=== PATIENT | female | born 1975 | race African-American/Black ===

== ENCOUNTER → 2016-09-28 | Outpatient (CLI) | payer OTHER ==
--- NOTE | 2016-09-28 14:37 | P.PN ---
Progress Note - Text Patient returns for followup for chronic back pain without radiation to legs. Patient underwent LESI x 3 in November 2015, which provided some relief for 2-3 weeks' interval apiece. Patient continues on [place] and Mobic medications for pain with some relief and has now recovered from her previous pneumonia. Patient denies adverse drug effects from medications. Today, pt denies new- onset weakness, bowel/bladder incontinence, or any other signs or symptoms of cauda equina syndrome. There are no signs of acute intoxication, and no indications of medication diversion or overuse. In addition to above, 13-point review of systems is also negative for chest pain , shortness of breath, changes in vision, changes in hearing, new onset weakness , abdominal pain, diarrhea, extreme fatigue, malaise, fever, skin changes, homicidal or suicidal ideation, or bowel or bladder incontinence. Vital Signs: Reviewed in EMR Gen: WDWN, AAOx3, NAD HEENT: NCAT, EOMI, hearing grossly normal Pulm: resp unlabored Abd: soft, NT, ND Neck: supple, trachea midline ROM in flexion lumbar spine: full ROM in extension lumbar spine: reduced Lumbar paravertebral tenderness: + Facet loading: ++ bilateral SI joint tenderness: + bilateral Darin's test: neg Neuro: CN II-XII grossly intact, muscle strength lower extremities PRESERVED Imaging: Reviewed in EMR Assessment: 1. lumbar spinal stenosis 2. lumbar spondylosis without myelopathy 3. sacroiliac joint dysfunction Plan: 1. Explanation: Opioid and psychological risk scores were reviewed. Diagnoses , prognoses, and multiple treatment options including but not limited to physical therapy, interventional therapies, adjuvant medical therapies, narcotic medication therapies, and surgery were discussed with the patient and all questions were answered to the patient's satisfaction. 2. Opioid agreement: Patient has previously signed narcotic agreement, and was orally counseled to not overuse, abuse, divert, or cell medications, and to take them as prescribed by only 1 healthcare provider. The patient was also counseled to store opioid medications in a safe and preferably locked location. Patient was also counseled against driving while using narcotic medications and also to not use alcohol or any illicit or recreational drugs. The patient verbalized understanding that lack of compliance with any of the above and likely result in failure to renew narcotic prescriptions, possible discharge from the clinic, and possible legal ramifications thereafter if indicated. 3. Counseling: The patient was counseled extensively on SMOKING CESSATION, BODY MASS INDEX, EXERCISE. Specifically, the patient was instructed regarding the importance of smoking cessation, obesity, and exercise in the context of both chronic pain and overall health. 4. Procedures: bilateral lumbar MBB 5. Consultations: None 6. Investigations: UDS reviewed, appropriate 7. Medications: [place] x 2 months and Mobic 8. Disposition: f/u for MBB as scheduled PQRS measures: 1-Patient's medications are documented in the chart. 2-Tobacco use is positive, counseling given 3-Patient has not had a pneumococcal vaccine. 4-Advanced care planning discussed, patient unable to give. 5-Opioid contract signed with the patient. 6-Pain positive, follow-up visit or procedure scheduled 7-Patient's blood pressure measured and documented, and patient will follow up with the primary care due to hypertension. 8-Patient's weight was measured, and body mass index ABOVE the normal limits, and counseling was done. Patient instructed to follow up with PCP. 9-Patient WAS NOT identified as an unhealthy alcohol user.
[2016-09-28 14:51] VITALS: BP 180/98; PULSE 69; RESP 18
== END | disposition home or self-care (01) ==
LOC: PNWHC3 14:22
PROVIDERS: ATTEND Anesthesiology
DX: M48.06 Spinal stenosis, lumbar region (principal); M47.816 Spondylosis without myelopathy or radiculopathy, lumbar region; M53.88 Other specified dorsopathies, sacral and sacrococcygeal region; Z79.899 Other long term (current) drug therapy; Z72.0 Tobacco use; I10 Essential (primary) hypertension
CPT/HCPCS: 99211

== ENCOUNTER 2016-11-05 13:16 | Day surgery (SDC) | payer OTHER ==
[2016-11-03 15:07] VITALS: BMI 46.3
[2016-11-05 13:38] VITALS: TEMP 97.8
[2016-11-05] MEDS: LACTATED RINGERS 1,000 ML IV SCH ×2 (13:41→14:12)
[2016-11-05] MEDS ORDERED: LIDOCAINE 1% 20 ML VIAL (10MG/ML) FOR IV START INTRADERMA ONE (13:42)
[2016-11-05] MEDS ORDERED: TRIAMCINOLONE ACETONIDE 40 MG/ML 1 ML VIAL ONE (14:12)
[2016-11-05] MEDS ORDERED: MIDAZOLAM 2 MG/2 ML VIAL ONE (14:12)
[2016-11-05] MEDS ORDERED: fentaNYL (PF) 50 MCG/ML 2 ML AMP ONE (14:12)
[2016-11-05] MEDS ORDERED: BUPIVACAINE (PF) 0.5% 30 ML VIAL ONE (14:12)
--- NOTE | 2016-11-05 14:39 | P.PCN ---
Date of Procedure: 11/05/16 Procedure(s) Performed: PREOPERATIVE DIAGNOSIS : 1- Lumbar spondylosis with Facet Arthropathy without myelopathy . 2- Lumber degenerative disc disease POSTOPERATIVE DIAGNOSIS: 1- Lumbar spondylosis with Facet Arthropathy without myelopathy . 2- Lumber degenerative disc disease PROCEDURE: Diagnostic bilateral L3 -4 , L4 -5 , and L5-S1 medial branch block under fluoroscopy ANESTHESIA: Local with 1% lidocaine 6 ml ; IV sedation with Versed 2 mg and Fentanyl 100 mcg. EBL: Minimal COMPLICATION: None. IV FLUIDS: 100 mL of normal saline. PROCEDURE INDICATION: Chronic low back pain secondary to Facet arthropathy unresponsive to conservative treatment. PROCEDURE DESCRIPTION: the patient was seen and identified in the preop holding area , risks and benefits and possible complications of the procedure and alternative were discussed with the patient, and the patient agreed to proceed with the procedure and signed the consent IV was started and vital signs monitored during the procedure and fluoroscopy was used to maximize the benefit and accuracy of the needle placement, and sedation was given to decrease patient anxiety, patient was taken to the procedure room and placed in prone position vital signs monitored in the back prepped with chlorhexidine X3 then under strict sterile technique using a right oblique fluoroscopy ,the junction of the transverse process and the superior articulating process of the right L3- 4 , L4- 5, and L5-S1 vertebra which corresponding to the fluoroscopy image of the eye of the Steve dog on the block side for the medial branches and subsequently , after local infiltration of skin and subcu tissuies with lidocaine 1% one mL at each level ,then 22- gauge Quincke-type needles , 3 needle was used , each one of them placed at the junction of the base of the transverse process and the superior articular process at the appropriate level, and the needle was advanced until the periosteum contacted, needle placement confirmed with AP oblique and lateral view and after appropriate needle placement confirmed, and after negative aspiration for heme and CSF and there was no paresthesia 1-1/2 mL of Marcaine 0.5% mixed with 40 mg Kenalog , then half mL injected at each level after negative aspiration the needle subsequently removed and the same procedure repeated for the left side at left side at L3-4, L4- 5 and L5-S1 levels. At the end of the procedure and the needles removed and a bandage applied after the skin was cleaned the cleaning solution patient taken to recovery room in stable condition and monitors in the recovery room for 20-30 minutes and discharged home in stable condition after discharge criteria met and patient will follow up with the pain clinic in 2-4 weeks
[2016-11-05 14:48] VITALS: RESP 16
--- NOTE | 2016-11-05 14:51 | FL ---
EXAMINATION TYPE: FL guided pain mgmt statistic DATE OF EXAM: 11/05/2016 2:43 PM CLINICAL HISTORY: Low back pain. TECHNIQUE: Fluoroscopy. COMPARISON: None. FINDINGS: Fluoroscopic guidance was provided during pain relief procedure performed by Dr. Alaniz . A total of 10 seconds of fluoroscopic time was utilized during the procedure and multiple spot marcos ges are acquired. Images acquired shows needle localization at several levels in the lower lumbar sp ine. IMPRESSION: As Above.
[2016-11-05 15:01] VITALS: BP 133/76; PULSE 62
[2016-11-05] MEDS ORDERED: IV FLUID CONTINUATION 1,000 ML IV ONE (15:03)
== END 2016-11-05 15:08 | disposition home or self-care (01) ==
LOC: ORPAIN 13:16
PROVIDERS: ATTEND Specialist
DX: G89.29 Other chronic pain (principal); M46.96 Unspecified inflammatory spondylopathy, lumbar region; M51.36 Other intervertebral disc degeneration, lumbar region; M47.816 Spondylosis without myelopathy or radiculopathy, lumbar region
CPT/HCPCS: 81025; 64493; 64494; 64495; 99152; J2250; J3301; J3010

== ENCOUNTER → 2016-11-24 | Outpatient (CLI) | payer OTHER ==
[2016-11-24 14:48] VITALS: BP 120/75; PULSE 58; RESP 18; TEMP 98
--- NOTE | 2016-11-24 14:59 | P.PN ---
Progress Note - Text Patient returns for followup for chronic back pain without radiation to legs. Patient underwent bilateral lumbar MBB, which provided > 70% relief for two weeks of back pain. Patient continues on [place] and Mobic medications for pain with some relief. Patient denies adverse drug effects from medications. Today , pt denies new-onset weakness, bowel/bladder incontinence, or any other signs or symptoms of cauda equina syndrome. There are no signs of acute intoxication, and no indications of medication diversion or overuse. In addition to above, 13-point review of systems is also negative for chest pain , shortness of breath, changes in vision, changes in hearing, new onset weakness , abdominal pain, diarrhea, extreme fatigue, malaise, fever, skin changes, homicidal or suicidal ideation, or bowel or bladder incontinence. Vital Signs: Reviewed in EMR Gen: WDWN, AAOx3, NAD HEENT: NCAT, EOMI, hearing grossly normal Pulm: resp unlabored Abd: soft, NT, ND Neck: supple, trachea midline ROM in flexion lumbar spine: full ROM in extension lumbar spine: reduced Lumbar paravertebral tenderness: + Facet loading: ++ bilateral, R > L SI joint tenderness: + bilateral Darin's test: + R side Neuro: CN II-XII grossly intact, muscle strength lower extremities PRESERVED Imaging: Reviewed in EMR Assessment: 1. lumbar spinal stenosis 2. lumbar spondylosis without myelopathy 3. sacroiliac joint dysfunction Plan: 1. Explanation: Opioid and psychological risk scores were reviewed. Diagnoses , prognoses, and multiple treatment options including but not limited to physical therapy, interventional therapies, adjuvant medical therapies, narcotic medication therapies, and surgery were discussed with the patient and all questions were answered to the patient's satisfaction. 2. Opioid agreement: Patient has previously signed narcotic agreement, and was orally counseled to not overuse, abuse, divert, or cell medications, and to take them as prescribed by only 1 healthcare provider. The patient was also counseled to store opioid medications in a safe and preferably locked location. Patient was also counseled against driving while using narcotic medications and also to not use alcohol or any illicit or recreational drugs. The patient verbalized understanding that lack of compliance with any of the above and likely result in failure to renew narcotic prescriptions, possible discharge from the clinic, and possible legal ramifications thereafter if indicated. 3. Counseling: The patient was counseled extensively on SMOKING CESSATION, BODY MASS INDEX, EXERCISE. Specifically, the patient was instructed regarding the importance of smoking cessation, obesity, and exercise in the context of both chronic pain and overall health. 4. Procedures: bilateral lumbar MBB #2 5. Consultations: None 6. Investigations: UDS reviewed, appropriate 7. Medications: [place] x 2 months and Mobic x 6 months 8. Disposition: f/u for MBB as scheduled; if relief, will proceed with lumbar RFA PQRS measures: 1-Patient's medications are documented in the chart. 2-Tobacco use is positive, counseling given 3-Patient has not had a pneumococcal vaccine. 4-Advanced care planning discussed, patient unable to give. 5-Opioid contract signed with the patient. 6-Pain positive, follow-up visit or procedure scheduled 7-Patient's blood pressure measured and documented, and patient will follow up with the primary care due to hypertension. 8-Patient's weight was measured, and body mass index ABOVE the normal limits, and counseling was done. Patient instructed to follow up with PCP. 9-Patient WAS NOT identified as an unhealthy alcohol user.
== END | disposition home or self-care (01) ==
LOC: PNWHC3 14:38
PROVIDERS: ATTEND Anesthesiology
DX: M48.06 Spinal stenosis, lumbar region (principal); M47.816 Spondylosis without myelopathy or radiculopathy, lumbar region; M53.3 Sacrococcygeal disorders, not elsewhere classified; Z79.1 Long term (current) use of non-steroidal anti-inflammatories (NSAID); Z79.891 Long term (current) use of opiate analgesic
CPT/HCPCS: 99211

== ENCOUNTER 2016-12-10 10:49 | Day surgery (SDC) | payer OTHER ==
[2016-12-09 09:51] VITALS: BMI 47.6
[~2016-12-10 10:49] MED LIST: LACTATED RINGERS 1,000 ML IV SCH
[2016-12-10 12:10] VITALS: TEMP 98.1
[2016-12-10] MEDS ORDERED: LIDOCAINE 1% 20 ML VIAL (10MG/ML) FOR IV START INTRADERMA ONE (12:21)
[2016-12-10] MEDS ORDERED: MIDAZOLAM 2 MG/2 ML VIAL ONE (13:14)
[2016-12-10] MEDS ORDERED: BUPIVACAINE (PF) 0.5% 30 ML VIAL ONE (13:14)
[2016-12-10] MEDS ORDERED: TRIAMCINOLONE ACETONIDE 40 MG/ML 1 ML VIAL ONE (13:14)
[2016-12-10] MEDS ORDERED: fentaNYL (PF) 50 MCG/ML 2 ML AMP ONE (13:14)
--- NOTE | 2016-12-10 13:42 | P.PCN ---
Date of Procedure: 12/10/16 Procedure(s) Performed: PREOPERATIVE DIAGNOSIS : 1- Lumbar spondylosis with Facet Arthropathy without myelopathy . 2- Lumber degenerative disc disease POSTOPERATIVE DIAGNOSIS: 1- Lumbar spondylosis with Facet Arthropathy without myelopathy . 2- Lumber degenerative disc disease PROCEDURE: Diagnostic bilateral L3 -4 , L4 -5 , and L5-S1 medial branch block under fluoroscopy ANESTHESIA: Local with 1% lidocaine 6 ml ; IV sedation with Versed 2 mg and Fentanyl 100 mcg. EBL: Minimal COMPLICATION: None. IV FLUIDS: 100 mL of normal saline. PROCEDURE INDICATION: Chronic low back pain secondary to Facet arthropathy unresponsive to conservative treatment. PROCEDURE DESCRIPTION: the patient was seen and identified in the preop holding area , risks and benefits and possible complications of the procedure and alternative were discussed with the patient, and the patient agreed to proceed with the procedure and signed the consent IV was started and vital signs monitored during the procedure and fluoroscopy was used to maximize the benefit and accuracy of the needle placement, and sedation was given to decrease patient anxiety, patient was taken to the procedure room and placed in prone position vital signs monitored in the back prepped with chlorhexidine X3 then under strict sterile technique using a right oblique fluoroscopy ,the junction of the transverse process and the superior articulating process of the right L3- 4 , L4- 5, and L5-S1 vertebra which corresponding to the fluoroscopy image of the eye of the Steve dog on the block side for the medial branches and subsequently , after local infiltration of skin and subcu tissuies with lidocaine 1% one mL at each level ,then 22- gauge Quincke-type needles , 3 needle was used , each one of them placed at the junction of the base of the transverse process and the superior articular process at the appropriate level, and the needle was advanced until the periosteum contacted, needle placement confirmed with AP oblique and lateral view and after appropriate needle placement confirmed, and after negative aspiration for heme and CSF and there was no paresthesia 1-1/2 mL of Marcaine 0.5% mixed with 20 mg Kenalog , then half mL injected at each level after negative aspiration the needle subsequently removed and the same procedure repeated for the left side at left side at L3-4, L4- 5 and L5-S1 levels. At the end of the procedure and the needles removed and a bandage applied after the skin was cleaned the cleaning solution patient taken to recovery room in stable condition and monitors in the recovery room for 20-30 minutes and discharged home in stable condition after discharge criteria met and patient will follow up with the pain clinic in 2-4 weeks note = next Procedure we should use 5 inch needles
[2016-12-10] MEDS ORDERED: IV FLUID CONTINUATION 1,000 ML IV ONE ×2 (13:47)
[2016-12-10 14:06] VITALS: BP 129/83; PULSE 59; RESP 20
--- NOTE | 2016-12-10 14:58 | FL ---
Fluoroscopy HISTORY: Pain 15 seconds fluoroscopy time supplied to the referring clinician. 4 intraoperative C-arm images do cument the procedure. See dictated report from anesthesia.
== END 2016-12-10 15:13 | disposition home or self-care (01) ==
LOC: ORPAIN 10:49
PROVIDERS: ATTEND Specialist
DX: G89.29 Other chronic pain (principal); M54.5 Low back pain; M46.96 Unspecified inflammatory spondylopathy, lumbar region; M47.816 Spondylosis without myelopathy or radiculopathy, lumbar region; M51.36 Other intervertebral disc degeneration, lumbar region
CPT/HCPCS: 81025; 64493; 64494; 64495; 99152; J2250; J3301; J3010

== ENCOUNTER 2017-01-12 09:14 | Day surgery (SDC) | payer OTHER ==
[2017-01-07 15:26] VITALS: BMI 45.3
[2017-01-12 09:34] VITALS: RESP 16; TEMP 98
[2017-01-12] MEDS ORDERED: LIDOCAINE 1% 20 ML VIAL (10MG/ML) FOR IV START INTRADERMA ONE (09:38)
[2017-01-12] MEDS ORDERED: fentaNYL (PF) 50 MCG/ML 2 ML AMP ONE (09:43)
[2017-01-12] MEDS ORDERED: DEXAMETHASONE SOD PHOS (MDV) 100 MG/10 ML VIAL ONE (09:43)
[2017-01-12] MEDS ORDERED: MIDAZOLAM 2 MG/2 ML VIAL ONE (09:43)
[2017-01-12] MEDS ORDERED: IV FLUID CONTINUATION 1,000 ML IV ONE (10:15)
--- NOTE | 2017-01-12 10:21 | P.PCN ---
Date of Procedure: 01/12/17 Preoperative Diagnosis: Postoperative Diagnosis: Procedure(s) Performed: Implants: Surgeon: Tj Clemons Pathology: none sent Condition: stable Disposition: PACU Indications for Procedure: Operative Findings: Description of Procedure: PREOPERATIVE DIAGNOSIS: Lumbar spondylosis without myelopathy and facet arthropathy POSTOPERATIVE DIAGNOSIS: Lumbar spondylosis without myelopathy and facet arthropathy PROCEDURES: Left Radiofrequency thermocoagulation, L3, L4, and L5 medial branch , with fluoroscopic guidance. ANESTHESIA: 1% lidocaine plain; Conscious sedation with versed/fentanyl EBL: Minimal PROCEDURE INDICATION: The patient with low back pain secondary to lumbar arthropathy who had more than 50% relief of pain with previous diagnostic lumbar medial branch block with bupivacaine. Patient presents for RFA today and has been off Plavix for seven (7) days. PROCEDURE DESCRIPTION / TECHNIQUE: The patient was seen and identified in the preoperative area. Risks, benefits, complications, and alternatives were discussed with the patient (including but not limited to incomplete pain relief , bleeding, infection, nerve damage, and allergies to medications), the patient agreed to proceed with the procedure and signed the consent after all questions were answered. Patient was taken to the OR and time out was completed to verify proper patient , position, laterality of pain, and allergies. Pt was placed in the prone position. IV was started. Vital signs remained stable throughout the procedure. A pillow was placed under the patients chest to decrease lordosis. The lumbosacral area was prepped and draped in the usual sterile fashion. Vital signs were closely monitored during the procedure. Conscious sedation was used during the procedure to decrease patients anxiety. Using AP and then oblique fluoroscopy, the eye of the Steve dog corresponding to the connection between the superior and transverse articular processes of left L4, L5 and top of the sacrum were identified, marked, and localized with 1% lidocaine. Subsequently, a 20 gauge, 150-mm radiofrequency cannula with a 10-mm active tip was advanced guided by fluoroscopy to each of the eyes of the Steve dog at left L3, L4, and L5 medial branches. Each site then underwent sensory testing at 50 Hz and 0 to 1 volt and motor testing at 2 Hz and 0 to 3 volt with local stimulation, but no radicular symptoms down the legs. Thereafter the left L3, L4, and L5 medial branch sites underwent radiofrequency thermocoagulation at 80 degrees Celsius for 90 seconds after injecting 0.5 ml of PF lidocaine 1%. After thermocoagulation, 1 ml of the block solution containing Decadron 10 mg and 2 mL of preservative-free normal saline was injected at the left L3, L4, and L5 medial branch levels after negative aspiration of CSF and blood and with no paresthesias. Cannulas were retracted while injecting lidocaine 1% until the needles were removed. At the end of the procedure, the skin was cleansed and bandages were applied. COMPLICATIONS: No acute complications. DISPOSITION / PLANS: The patient was placed in a supine position and transferred to the recovery area in a stable condition for observation and was discharged from the recovery room after meeting discharge criteria. Home discharge instructions given to the patient by the staff. The patient was reexamined prior to discharge. The patient will schedule a right lumbar RFA in 4 -6 weeks.
[2017-01-12 10:52] VITALS: BP 139/84; PULSE 61
--- NOTE | 2017-01-12 11:14 | FL ---
EXAMINATION TYPE: FL guided pain mgmt statistic DATE OF EXAM: 01/12/2017 10:11 AM FLUOROSCOPY Fluoroscopy time of 20 seconds was used during left lumbar radiofrequency ablation. 2 image/s docume nt/s the procedure.
== END 2017-01-12 11:04 | disposition home or self-care (01) ==
LOC: ORPAIN 09:14
PROVIDERS: ATTEND Anesthesiology
DX: G89.29 Other chronic pain (principal); M54.5 Low back pain; M47.816 Spondylosis without myelopathy or radiculopathy, lumbar region; M46.96 Unspecified inflammatory spondylopathy, lumbar region; J45.909 Unspecified asthma, uncomplicated; Z79.1 Long term (current) use of non-steroidal anti-inflammatories (NSAID); Z79.891 Long term (current) use of opiate analgesic; Z79.51 Long term (current) use of inhaled steroids; Z79.899 Other long term (current) drug therapy
CPT/HCPCS: 81025; 64636 ×2; 64635; 99152; J2250; J3010; J1100

== ENCOUNTER 2017-03-01 07:20 | Day surgery (SDC) | payer OTHER ==
[2017-03-01] MEDS ORDERED: LACTATED RINGERS 1,000 ML IV SCH (08:15)
[2017-03-01] MEDS ORDERED: LIDOCAINE 1% 20 ML VIAL (10MG/ML) FOR IV START INTRADERMA ONE (08:54)
[2017-03-01] MEDS ORDERED: TRIAMCINOLONE ACETONIDE 40 MG/ML 1 ML VIAL ONE (08:55)
[2017-03-01] MEDS ORDERED: fentaNYL (PF) 50 MCG/ML 2 ML AMP ONE (08:55)
[2017-03-01] MEDS ORDERED: MIDAZOLAM 2 MG/2 ML VIAL ONE (08:55)
[2017-03-01 09:00] VITALS: TEMP 98
--- NOTE | 2017-03-01 09:26 | P.PCN ---
Date of Procedure: 03/01/17 Preoperative Diagnosis: Postoperative Diagnosis: Procedure(s) Performed: Implants: Surgeon: Tj Clemons Pathology: none sent Condition: stable Disposition: PACU Indications for Procedure: Operative Findings: Description of Procedure: PREOPERATIVE DIAGNOSIS: Lumbar spondylosis without myelopathy and facet arthropathy POSTOPERATIVE DIAGNOSIS: Lumbar spondylosis without myelopathy and facet arthropathy PROCEDURES: Right Radiofrequency thermocoagulation, L3, L4, and L5 medial branch , with fluoroscopic guidance. ANESTHESIA: 1% lidocaine plain; Conscious sedation with versed/fentanyl EBL: Minimal PROCEDURE INDICATION: The patient with low back pain secondary to lumbar arthropathy who had more than 50% relief of pain with previous diagnostic lumbar medial branch block with bupivacaine. Patient presents for right RFA today after left lumbar RFA last time. Patient denies use of any blood thinners. PROCEDURE DESCRIPTION / TECHNIQUE: The patient was seen and identified in the preoperative area. Risks, benefits, complications, and alternatives were discussed with the patient (including but not limited to incomplete pain relief , bleeding, infection, nerve damage, and allergies to medications), the patient agreed to proceed with the procedure and signed the consent after all questions were answered. Patient was taken to the OR and time out was completed to verify proper patient , position, laterality of pain, and allergies. Pt was placed in the prone position. IV was started. Vital signs remained stable throughout the procedure. A pillow was placed under the patients abdomen to decrease lordosis. The lumbosacral area was prepped and draped in the usual sterile fashion. Vital signs were closely monitored during the procedure. Conscious sedation was used during the procedure to decrease patients anxiety. Using AP and then oblique fluoroscopy, the eye of the Steve dog corresponding to the connection between the superior and transverse articular processes of right L4, L5 and top of the sacrum were identified, marked, and localized with 1% lidocaine. Subsequently, a 20 gauge, 150-mm radiofrequency cannula with a 10-mm active tip was advanced guided by fluoroscopy to each of the eyes of the Steve dog at right L3, L4, and L5 medial branches. Each site then underwent sensory testing at 50 Hz and 0 to 1 volt and motor testing at 2 Hz and 0 to 3 volt with local stimulation, but no radicular symptoms down the legs. Thereafter the right L3, L4, and L5 medial branch sites underwent radiofrequency thermocoagulation at 80 degrees Celsius for 90 seconds after injecting 0.5 ml of PF lidocaine 1%. After thermocoagulation, 1 ml of the block solution containing Kenalog 40 mg and 2 mL of preservative-free normal saline was injected at the right L3, L4, and L5 medial branch levels after negative aspiration of CSF and blood and with no paresthesias. Cannulas were retracted while injecting lidocaine 1% until the needles were removed. At the end of the procedure, the skin was cleansed and bandages were applied. COMPLICATIONS: No acute complications. DISPOSITION / PLANS: The patient was placed in a supine position and transferred to the recovery area in a stable condition for observation and was discharged from the recovery room after meeting discharge criteria. Home discharge instructions given to the patient by the staff. The patient was reexamined prior to discharge. The patient will schedule a follow-up in the clinic in 4-6 weeks.
[2017-03-01] MEDS ORDERED: IV FLUID CONTINUATION 1,000 ML IV ONE (09:27)
[2017-03-01 09:30] VITALS: RESP 18
--- NOTE | 2017-03-01 09:30 | FL ---
EXAMINATION TYPE: FL guided pain mgmt statistic DATE OF EXAM: 03/01/2017 CLINICAL HISTORY: Low back and sacral pain. TECHNIQUE: Fluoroscopy. COMPARISON: None. FINDINGS: Fluoroscopic guidance was provided during pain relief procedure performed by Dr. Clemons . A total of 18 seconds of fluoroscopic time was utilized during the procedure and two spot images are acquired. Images acquired shows needle localization at several levels in the lower lumbar spine. IMPRESSION: As Above.
[2017-03-01 09:41] VITALS: BP 111/78; PULSE 61
--- NOTE | 2017-03-03 07:02 | CDI ---
Documentation Clarification OP Dear Dr. Clemons, Please provide clarification regarding the facet levels treated. The CPT codes for these accounts are coded by the facet levels not the number of nerves treated. Please specify each facet joint level treated (L3-4, L4-5, etc) PLEASE RESPOND TO THIS QUERY BY DICTATING AN ADDENDUM TO YOUR PROCEDURE NOTE. Thank you for your assistance. [employer] [email or web address] CONSULTANT If you have any questions, please contact Kaiako Kohanga Reo, Carolin Santos at [facility]
== END 2017-03-01 10:05 | disposition home or self-care (01) ==
LOC: ORPAIN 07:20
PROVIDERS: ATTEND Anesthesiology
DX: G89.29 Other chronic pain (principal); M47.816 Spondylosis without myelopathy or radiculopathy, lumbar region; M46.96 Unspecified inflammatory spondylopathy, lumbar region; J44.9 Chronic obstructive pulmonary disease, unspecified; Z79.1 Long term (current) use of non-steroidal anti-inflammatories (NSAID); Z79.891 Long term (current) use of opiate analgesic; Z79.51 Long term (current) use of inhaled steroids; Z79.899 Other long term (current) drug therapy
CPT/HCPCS: 99152; 99153; 81025; 64635; 64636 ×2; J2250; J3301; J3010

== ENCOUNTER → 2017-03-29 | Outpatient (CLI) | payer OTHER ==
[2017-03-29 11:57] VITALS: BP 122/78; PULSE 62; RESP 16; TEMP 97.6
--- NOTE | 2017-03-29 12:08 | P.PN ---
Progress Note - Text Patient returns for followup for chronic back pain without radiation to legs. Patient underwent bilateral lumbar RFA, which has provided good relief in interval since procedures. Patient continues on [place] and Mobic medications for pain with some relief. Patient denies adverse drug effects from medications. Today, pt denies new-onset weakness, bowel/bladder incontinence, or any other signs or symptoms of cauda equina syndrome. There are no signs of acute intoxication, and no indications of medication diversion or overuse. In addition to above, 13-point review of systems is also negative for chest pain , shortness of breath, changes in vision, changes in hearing, new onset weakness , abdominal pain, diarrhea, extreme fatigue, malaise, fever, skin changes, homicidal or suicidal ideation, or bowel or bladder incontinence. Vital Signs: Reviewed in EMR Gen: WDWN, AAOx3, NAD HEENT: NCAT, EOMI, hearing grossly normal Pulm: resp unlabored Abd: soft, NT, ND Neck: supple, trachea midline ROM in flexion lumbar spine: full ROM in extension lumbar spine: reduced Lumbar paravertebral tenderness: + Facet loading: + bilateral, improved since November SI joint tenderness: + bilateral Darin's test: + R side Neuro: CN II-XII grossly intact, muscle strength lower extremities PRESERVED Imaging: Reviewed in EMR Assessment: 1. lumbar spinal stenosis 2. lumbar spondylosis without myelopathy 3. sacroiliac joint dysfunction Plan: 1. Explanation: Opioid and psychological risk scores were reviewed. Diagnoses , prognoses, and multiple treatment options including but not limited to physical therapy, interventional therapies, adjuvant medical therapies, narcotic medication therapies, and surgery were discussed with the patient and all questions were answered to the patient's satisfaction. 2. Opioid agreement: Patient has previously signed narcotic agreement, and was orally counseled to not overuse, abuse, divert, or cell medications, and to take them as prescribed by only 1 healthcare provider. The patient was also counseled to store opioid medications in a safe and preferably locked location. Patient was also counseled against driving while using narcotic medications and also to not use alcohol or any illicit or recreational drugs. The patient verbalized understanding that lack of compliance with any of the above and likely result in failure to renew narcotic prescriptions, possible discharge from the clinic, and possible legal ramifications thereafter if indicated. 3. Counseling: The patient was counseled extensively on SMOKING CESSATION, BODY MASS INDEX, EXERCISE. Specifically, the patient was instructed regarding the importance of smoking cessation, obesity, and exercise in the context of both chronic pain and overall health. 4. Procedures: none for now 5. Consultations: None 6. Investigations: UDS reviewed, appropriate 7. Medications: Patient has refills on Mobic and [place] script already given for March; will plan to reduce [place] to 10/325 #90 for April and thereafter 8. Disposition: f/u for re-eval in 8 weeks PQRS measures: 1-Patient's medications are documented in the chart. 2-Tobacco use is positive, counseling given 3-Patient has not had a pneumococcal vaccine. 4-Advanced care planning discussed, patient unable to give. 5-Opioid contract signed with the patient. 6-Pain positive, follow-up visit or procedure scheduled 7-Patient's blood pressure measured and documented, and WNL. 8-Patient's weight was measured, and body mass index ABOVE the normal limits, and counseling was done. Patient instructed to follow up with PCP. 9-Patient WAS NOT identified as an unhealthy alcohol user.
== END | disposition home or self-care (01) ==
LOC: PNWHC3 11:06
PROVIDERS: ATTEND Anesthesiology
DX: M48.06 Spinal stenosis, lumbar region (principal); M47.816 Spondylosis without myelopathy or radiculopathy, lumbar region; M53.3 Sacrococcygeal disorders, not elsewhere classified
CPT/HCPCS: 99211

== ENCOUNTER → 2017-05-24 | Outpatient (CLI) | payer OTHER ==
[2017-05-24 12:17] VITALS: BP 158/74; PULSE 69; RESP 18
--- NOTE | 2017-05-24 12:25 | P.PN ---
Progress Note - Text Patient returns for followup for chronic back pain without radiation to legs. Patient underwent bilateral lumbar RFA in December and February, which has provided good relief in interval since procedures, but left sided back pain is starting to return since procedure in December. Patient continues on [place] and Mobic medications for pain with some relief. Patient denies adverse drug effects from medications. Today, pt denies new-onset weakness, bowel/bladder incontinence, or any other signs or symptoms of cauda equina syndrome. There are no signs of acute intoxication, and no indications of medication diversion or overuse. In addition to above, 13-point review of systems is also negative for chest pain , shortness of breath, changes in vision, changes in hearing, new onset weakness , abdominal pain, diarrhea, extreme fatigue, malaise, fever, skin changes, homicidal or suicidal ideation, or bowel or bladder incontinence. Vital Signs: Reviewed in EMR Gen: WDWN, AAOx3, NAD HEENT: NCAT, EOMI, hearing grossly normal Pulm: resp unlabored Abd: soft, NT, ND Neck: supple, trachea midline ROM in flexion lumbar spine: slightly reduced ROM in extension lumbar spine: reduced Lumbar paravertebral tenderness: + Facet loading: + L > R SI joint tenderness: + bilateral Darin's test: + R side > L side Neuro: CN II-XII grossly intact, muscle strength lower extremities PRESERVED Imaging: Reviewed in EMR Assessment: 1. lumbar spinal stenosis 2. lumbar spondylosis without myelopathy 3. sacroiliac joint dysfunction Plan: 1. Explanation: Opioid and psychological risk scores were reviewed. Diagnoses , prognoses, and multiple treatment options including but not limited to physical therapy, interventional therapies, adjuvant medical therapies, narcotic medication therapies, and surgery were discussed with the patient and all questions were answered to the patient's satisfaction. 2. Opioid agreement: Patient has previously signed narcotic agreement, and was orally counseled to not overuse, abuse, divert, or cell medications, and to take them as prescribed by only 1 healthcare provider. The patient was also counseled to store opioid medications in a safe and preferably locked location. Patient was also counseled against driving while using narcotic medications and also to not use alcohol or any illicit or recreational drugs. The patient verbalized understanding that lack of compliance with any of the above and likely result in failure to renew narcotic prescriptions, possible discharge from the clinic, and possible legal ramifications thereafter if indicated. 3. Counseling: The patient was counseled extensively on SMOKING CESSATION, BODY MASS INDEX, EXERCISE. Specifically, the patient was instructed regarding the importance of smoking cessation, obesity, and exercise in the context of both chronic pain and overall health. 4. Procedures: none for now 5. Consultations: None 6. Investigations: UDS today 7. Medications: [place] 10/325 #90 with one refill 8. Disposition: f/u for procedure as scheduled PQRS measures: 1-Patient's medications are documented in the chart. 2-Tobacco use is positive, counseling given 3-Patient has not had a pneumococcal vaccine. 4-Advanced care planning discussed, patient unable to give. 5-Opioid contract signed with the patient. 6-Pain positive, follow-up visit or procedure scheduled 7-Patient's blood pressure measured and documented, and WNL. 8-Patient's weight was measured, and body mass index ABOVE the normal limits, and counseling was done. Patient instructed to follow up with PCP. 9-Patient WAS NOT identified as an unhealthy alcohol user.
== END ==
LOC: PNWHC3 11:56
PROVIDERS: ATTEND Anesthesiology
DX: M48.061 Spinal stenosis, lumbar region without neurogenic claudication (principal); M47.816 Spondylosis without myelopathy or radiculopathy, lumbar region; M53.3 Sacrococcygeal disorders, not elsewhere classified; Z79.891 Long term (current) use of opiate analgesic; Z79.899 Other long term (current) drug therapy
CPT/HCPCS: 80307; G0480 ×2; G0463; 80356; 80364; 99211

== ENCOUNTER → 2017-08-10 | Outpatient (CLI) | payer OTHER ==
[2017-08-10 12:27] VITALS: BP 121/74; PULSE 65; RESP 18
--- NOTE | 2017-08-10 12:52 | P.PN ---
Progress Note - Text Progress Note Date: 08/10/17 This is a 39-year-old morbidly obese lady with history of axial lower back pain due to lumbar spondylosis without myelopathy. Patient spent has been well-controlled with a combination of interventional pain procedures and oral medications including [place] 10 mg 3 times a day and Mobic 7.5 mg once a day. Patient denies any side effects to these medications. She does not show any signs of oversedation and she does not show any signs of abnormal behavior at this time. She denies any bowel or bladder dysfunction also she denies any weakness in the lower lower extremities or any paresthesia. I'll give her prescription for [place] and Motrin for 2 months and we'll see her then. PQRS measures: 1-Patient's medications are documented in the chart. 2-patient uses tobacco, counseling given 3-Patient has not had a pneumococcal vaccine. 4-Advanced care planning discussed, patient unable to give 5-Opioid contract signed with the patient. 6-Pain positive, follow-up visit or procedure scheduled 7-Patient's blood pressure measured and documented within normal limits. 8-Patient's weight was measured, and body mass index ABOVE the normal limits, and counseling was done. Patient instructed to follow up with PCP. 9-Patient WAS NOT identified as an unhealthy alcohol user.
== END ==
LOC: PNWHC3 11:58
PROVIDERS: ATTEND Anesthesiology
DX: E66.01 Morbid (severe) obesity due to excess calories (principal); Z79.899 Other long term (current) drug therapy
CPT/HCPCS: 99211

== ENCOUNTER 2017-09-29 08:25 | Day surgery (SDC) | payer OTHER ==
[2017-08-20 11:40] VITALS: BMI 45.7
[2017-09-29 09:02] VITALS: RESP 16; TEMP 97.8
[2017-09-29] MEDS: LACTATED RINGERS 1,000 ML IV SCH ×2 (09:06→09:49)
[2017-09-29] MEDS ORDERED: LIDOCAINE 1% 20 ML VIAL (10MG/ML) FOR IV START INTRADERMA ONE (09:06)
--- NOTE | 2017-09-29 10:29 | P.PCN ---
Date of Procedure: 09/29/17 Procedure(s) Performed: PREOPERATIVE DIAGNOSIS: 1-Lumbar Spondylosis with Facet Arthropathy without myelopathy. POSTOPERATIVE DIAGNOSIS: 1- Lumbar Spondylosis with Facet Arthropathy without myelopathy. PROCEDURES : Right Radiofrequency thermocoagulation, L3-L4, L4-L5, and L5-S1 medial branch, with fluoroscopic guidance ANESTHESIA: Moderate sedation with intravenous versed 2 mg and fentaneyl 100 mcg and local infiltration with lidocaine 1% 6 ml EBL: Minimal PROCEDURE INDICATION: The patient with low back pain secondary to lumbar facet arthropathy who had more than 50% relief of her pain with previous diagnostic lumbar medial branch block with bupivacaine. PROCEDURE DESCRIPTION / TECHNIQUE: The patient was seen and identified in the preoperative area. Risks, benefits, complications, including but not limited to risk of infection ,bleeding , allergic reactions to the medications and no complete pain releife , and alternatives were discussed with the patient, the patient agreed to proceed with the procedure and signed the consent. IV was started. Vital signs remained stable throughout the procedure. Patient was taken to the OR and time out was completed. The patient was placed in the prone position on the procedure table. The lumber area was prepped and draped in the usual sterile fashion. . Vital signs were closely monitored during the procedure .IV sedation was used during the procedure to decrease patients anxiety. Using AP and then oblique fluoroscopy, the ``eye of the Steve dog corresponding to the connection between the superior and transverse articular processes of right L3, L4, and L5 were identified, marked, and localized with 1 % lidocaine. Subsequently, a [id number] radiofrequency cannula with a 10- mm active tip was advanced guided by fluoroscopy to each of the ``eyes of the Steve dog at right L3, L4, and L5. Each site then underwent sensory testing at 50 Hz and 0 to 1 volt and motor testing at 2.5 Hz and 0 to 3 volt with local stimulation, but no radicular symptoms down the legs. Thereafter the right L3-4, L4-5, and L5-S1 sites underwent radiofrequency thermocoagulation at 80 degrees celsius for 90 seconds after injecting 0.5 ml of PF lidocaine 1%. then After the thermocoagulation done , 1 ml of the block solution containing Kenalog 40 mg and 3 ml of marain 0.5% was injected at the right L3- 4 , L4-5 , and L5-S1, levels after negative aspiration of CSF and blood and with no paresthesias. Cannulas were retracted while injecting lidocaine 1% until the needle is out. . At the end of the procedure, the skin was cleansed and bandages were applied. COMPLICATIONS: No acute complications. DISPOSITION / PLANS: The patient was placed in a supine position and transferred to the recovery area in a stable condition for observation and was discharged from the recovery room after meeting discharge criteria. Home discharge instructions given to the patient by the staff. The patient was reexamined prior to discharge. The patient will schedule a follow up in the clinic in 2-4 weeks.
[2017-09-29] MEDS ORDERED: IV FLUID CONTINUATION 1,000 ML IV ONE (10:37)
--- NOTE | 2017-09-29 10:41 | FL ---
EXAMINATION TYPE: FL guided pain mgmt statistic DATE OF EXAM: 09/29/2017 CLINICAL HISTORY: Low back pain. TECHNIQUE: Fluoroscopy. COMPARISON: None. FINDINGS: Fluoroscopic guidance was provided during pain relief procedure performed by Dr. Alaniz . A total of 24 seconds of fluoroscopic time was utilized during the procedure and 3 spot images are acquired. Images acquired shows needle localization at several levels off the midline in the lower lumbar spine. IMPRESSION: As Above.
[2017-09-29 10:51] VITALS: BP 115/72; PULSE 55
== END 2017-09-29 11:11 | disposition home or self-care (01) ==
LOC: ORPAIN 08:25
PROVIDERS: ATTEND Specialist
DX: M47.816 Spondylosis without myelopathy or radiculopathy, lumbar region (principal); J45.909 Unspecified asthma, uncomplicated
CPT/HCPCS: 81025; 64635; 64636 ×2; J2250; J3301; J3010; 99152; 99153

== ENCOUNTER → 2017-10-27 | Outpatient (CLI) | payer OTHER ==
[2017-10-27 12:15] VITALS: BP 136/81; PULSE 97; RESP 18
--- NOTE | 2017-10-27 12:20 | P.PN ---
Subjective Progress Note Date: 10/27/17 This is follow-up visit for this patient with a history of severe and chronic low back pain secondary to lumbar degenerative disc diseases , lumbar spondylosis with facet arthropathy, we have done radiofrequency ablation of the medial branch lumbar area L3 4 /L4 5/L5-S1, and that helped the pain significantly Patients currently on [place] 10/325 every 8 hours, Mobic 7.5 mg daily Patient denies any side effects of the medication, denies excessive drowsiness or sleepiness, denies suicidal ideation, and reports that the current pain medication is helping To control the pain ,and improve activity of daily living Patient denies any motor or sensory deficit , patient denies any fever or night sweats, denies any change in the bowel movements or urination Physical Examinations : 1-Constitutiona : Cooperative , not in acute distress . 2-HEENT : nech ; supple , no Lymphadenopathy , no Thyromegaly , normal thyroid size . eyes : no ptosis , no icterus, no photophobia . ENT : normal of hearing , normal oropharynx , no Thrush . 3- Respiratory : Chest clear to auscultations Bilaterally , no wheezing , no Rhonchi . 4- Cardiovascular : regular rate and rhythem , S1 , S2 , no S3 , no S4. 5- Gastrointestinal : abdomen soft no tenderness , bowel sounds positive all four quadrents , no organomegally . 6- Genitourinary : Defferred . 7- neurologic : Cranial nerve II to XII intact , no focal neurological deffecit . 8-psychatric : alert , oriented X 3 , appropriate affect , intact judgment and insight . 9-Lymphatic : no Lymphadenopathy . 10- musculoskeltal : exams of the Lumber spine = motor strength lower extremities ,thigh and legs .5 Assessment and plan = Chronic low back pain secondary to lumbar degenerative disc disease , lumbar spondylosis with facet arthropathy without myelopathy , chronic and current use of high-risk medication (Opioids). The patient was counseled about risk of opioid use, psychological risk associated with opioids and was orally counseled to not overuse , divert,or sell dictations to take medications as prescribed only , and to restore medication in safe location , and the patient counseled against driving while using narcotic medications, and also not to use alcohol or any illicit recreational drugs, the patient's verbalized understanding that the lack of compliance will result in failure to renew narcotic prescription and possible discharge from the clinic - diagnoses, prognosis, and treatment options including but not limited to physical therapy, surgical interventions, interventional therapies , and medication management including narcotics and adjuvant medication were discussed with the patient and all the questions answered A prescription refill for [place] 10/325 every 8 hours dispense 90 with 1 refill, Mobic 7.5 milligrams daily dispense 30 with one refill Objective - Vital Signs Vital signs: Vital Signs Temp Pulse 97 10/27/17 12:07 Resp 18 10/27/17 12:07 BP 136/81 10/27/17 12:07 Pulse Ox 97 10/27/17 12:07 Intake & Output 10/26/17 10/27/17 10/27/17 18:59 06:59 18:59 Weight 113.398 kg
== END | disposition home or self-care (01) ==
LOC: PNWHC3 11:56
PROVIDERS: ATTEND Specialist
DX: G89.29 Other chronic pain (principal); M51.36 Other intervertebral disc degeneration, lumbar region; M47.816 Spondylosis without myelopathy or radiculopathy, lumbar region; M46.86 Other specified inflammatory spondylopathies, lumbar region; Z79.891 Long term (current) use of opiate analgesic; Z79.1 Long term (current) use of non-steroidal anti-inflammatories (NSAID)
CPT/HCPCS: 99211

== ENCOUNTER → 2017-12-22 | Outpatient (CLI) | payer OTHER ==
[2017-12-22 12:10] VITALS: BP 158/102; PULSE 58; RESP 18; TEMP 98.2
--- NOTE | 2017-12-22 12:34 | P.PN ---
Progress Note - Text Progress Note Date: 12/22/17 This is follow-up visit for this patient with a history of severe and chronic low back pain secondary to lumbar degenerative disc diseases , lumbar spondylosis with facet arthropathy, we have done interventional pain management injection,, 1-radio frequency ablation Patient denies any side effects of the medication, denies excessive drowsiness or sleepiness, denies suicidal ideation, and reports that the current pain medication is helping To control the pain and improve activity of daily living. He reports that she does lock her medication up in a lock box. He says that the combination of radio frequency ablations as well as opiate medications provide her significant relief of her pain and allow her to function. Patient denies any motor or sensory deficit , patient denies any fever or night sweats, denies any change in the bowel movements or urination Physical Examinations : 1-Constitutional : Cooperative , not in acute distress . 2-HEENT : nech ; supple , no Lymphadenopathy , no Thyromegaly , normal thyroid size . eyes : no ptosis , no icterus, no photophobia . ENT : normal of hearing , normal oropharynx , no Thrush . 3- Respiratory : Chest clear to auscultations Bilaterally , no wheezing , no Rhonchi . 4- Cardiovascular : regular rate and rhythem , S1 , S2 , no S3 , no S4. 5- Gastrointestinal : abdomen soft no tenderness , bowel sounds positive all four quadrents , no organomegally . 6- Genitourinary : Defferred . 7- neurologic : Cranial nerve II to XII intact , no focal neurological deffecit . 8-psychatric : alert , oriented X 3 , appropriate affect , intact judgment and insight . 9-Lymphatic : no Lymphadenopathy . 10- musculoskeletal : exams of the cervical spine = motor strength normal bilateral upper extremities facet loading test cervical area positive. exams of the Lumber spine = motor strength lower extremities ,thigh and legs .5/5 deep tendon reflexes : normal Knee Jerk , normal ankle Jerk . lumbar facet Loading Test : positive bilaterally strait leg raising test - negative Fabers test- negative bilaterally Range of motion: Range of motion in flexion of the lumbar spine 30 degrees Range of motion range of motion of extension of the lumbar spine 10 Assessment and plan = Chronic low back pain secondary to lumbar degenerative disc disease , lumbar spondylosis with facet arthropathy without myelopathy , chronic and current use of high-risk medication (Opioids). The patient was counseled about risk of opioid use, psychological risk associated with opioids and was orally counseled to not overuse , divert,or sell dictations to take medications as prescribed only , and to restore medication in safe location , and the patient counseled against driving while using narcotic medications, and also not to use alcohol or any illicit recreational drugs, the patient's verbalized understanding that the lack of compliance will result in failure to renew narcotic prescription and possible discharge from the clinic - diagnoses, prognosis, and treatment options including but not limited to physical therapy, surgical interventions, interventional therapies , and medication management including narcotics and adjuvant medication were discussed with the patient and all the questions answered Plan: 1. Follow-up in 2 months for medication management 2. We will schedule the patient for left lumbar radiofrequency ablation at the L4, L5 and sacral ala locations.
== END | disposition home or self-care (01) ==
LOC: PNWHC3 11:53
PROVIDERS: ATTEND Pain Medicine Pain Medicine
DX: G89.29 Other chronic pain (principal); M54.5 Low back pain; M51.36 Other intervertebral disc degeneration, lumbar region; M47.816 Spondylosis without myelopathy or radiculopathy, lumbar region; M46.86 Other specified inflammatory spondylopathies, lumbar region; F11.20 Opioid dependence, uncomplicated
CPT/HCPCS: 99211

== ENCOUNTER 2018-01-20 08:52 | Day surgery (SDC) | payer OTHER ==
[2018-01-19 08:32] VITALS: BMI 45.1
[2018-01-20 09:31] VITALS: RESP 16; TEMP 98.1
[2018-01-20] MEDS ORDERED: LIDOCAINE 1% 20 ML VIAL (10MG/ML) FOR IV START INTRADERMA ONE (09:32)
--- NOTE | 2018-01-20 10:12 | P.PCN ---
Date of Procedure: 01/20/18 Surgeon: Tyrell Adame Description of Procedure: Procedure(s) Performed: PREOPERATIVE DIAGNOSIS: 1. Lumbar Spondylosis with Facet Arthropathy without myelopathy. 2-. Lumber degenerative disc disease POSTOPERATIVE DIAGNOSIS: 1. Lumbar Spondylosis with Facet Arthropathy without myelopathy. 2-. Lumber degenerative disc disease PROCEDURES: Left Radiofrequency thermocoagulation, L4,L5, Sacral Ala medial branch, with fluoroscopic guidance SURGEON: Tyrell Adame MD. ANESTHESIA: Moderate sedation with intravenous versed 2 mg and fentanyl 100 mcg and local infiltration with lidocaine 1% 4 ml EBL: Minimal PROCEDURE INDICATION: The patient with low back pain secondary to lumbar facet arthropathy who had more than 50% relief of pain with previous diagnostic lumbar medial branch block with bupivacaine. PROCEDURE DESCRIPTION / TECHNIQUE: The patient was seen and identified in the preoperative area. Risks, benefits, complications, including but not limited to risk of infection ,bleeding , allergic reactions to the medications and no complete pain releife , and alternatives were discussed with the patient, the patient agreed to proceed with the procedure and signed the consent. IV was started. The operative site was marked. Patient was taken to the OR and time out was completed. The patient was placed in the prone position on the procedure table. The lumber area was prepped and draped in the usual sterile fashion. . Vital signs were closely monitored during the procedure .IV sedation was used during the procedure to decrease patients anxiety. Using AP and then oblique fluoroscopy, the ``eye of the Steve dog corresponding to the connection between the superior and transverse articular processes of the above-mentioned levels were identified, marked, and localized with 1% lidocaine. Subsequently, a 18 -yk radiofrequency cannula with a 10-mm active tip was advanced guided by fluoroscopy to each of the ``eyes of the Steve dog at each site then underwent sensory testing at 50 Hz and 0 to 1 volt and motor testing at 2.5 Hz and 0 to 3 volt with local stimulation, but no radicular symptoms down the legs. Then the sites underwent radiofrequency thermocoagulation at 80 degrees celsius for 90 seconds after injecting 0.5 ml of PF lidocaine 1%. then After the thermocoagulation done , 1 ml of the block solution containing depomedrol 40 mg and 4 ml of maraine 0.5 % was injected at each levels after negative aspiration of CSF and blood and with no paresthesias. Cannulas were retracted while injecting lidocaine 1% until the needle is out.. At the end of the procedure, the skin was cleansed and bandages were applied. COMPLICATIONS: No acute complications. DISPOSITION / PLANS: The patient was placed in a supine position and transferred to the recovery area in a stable condition for observation and was discharged from the recovery room after meeting discharge criteria. Home discharge instructions given to the patient by the staff. The patient was reexamined prior to discharge. She can follow up in the pain clinic on an as- needed basis. She will follow-up for medication management in less than 2 months..
[2018-01-20] MEDS ORDERED: IV FLUID CONTINUATION 1,000 ML IV ONE (10:43)
--- NOTE | 2018-01-20 11:10 | FL ---
Fluoroscopy INDICATION: Pain FINDINGS: Fluoroscopy time: 10 seconds. Images obtained: 2. IMPRESSIONS: 1. Documentation of fluoroscopy.
[2018-01-20 11:19] VITALS: BP 128/82; PULSE 52
== END 2018-01-20 11:29 | disposition home or self-care (01) ==
LOC: ORPAIN 08:52
PROVIDERS: ATTEND Pain Medicine Pain Medicine
DX: M47.816 Spondylosis without myelopathy or radiculopathy, lumbar region (principal); M51.36 Other intervertebral disc degeneration, lumbar region; J45.998 Other asthma
CPT/HCPCS: 64635; 64636; 81025; 99152

== ENCOUNTER → 2018-02-16 | Outpatient (CLI) | payer OTHER ==
[2018-02-16 13:31] VITALS: BP 166/82; PULSE 62; RESP 16; TEMP 98.9
--- NOTE | 2018-02-16 14:09 | P.PAINPG ---
Subjective Progress Note Date: 02/16/18 This is follow-up visit for this patient with a history of severe and chronic low back pain secondary to lumbar degenerative disc diseases , lumbar spondylosis with facet arthropathy, We have done interventional pain procedures at the frequency ablation of the medial branch lumbar area, which helped her pain significantly Patients currently on [place] 10/325 every 6 hours when necessary Patient denies any side effects of the medication, denies excessive drowsiness or sleepiness, denies suicidal ideation, and reports that the current pain medication is helping to control the pain and improve activity of daily living Patient denies any motor or sensory deficit , patient denies any fever or night sweats, denies any change in the bowel movements or urination Physical Examinations : 1-Constitutional : Cooperative , not in acute distress . 2-HEENT : nech ; supple , no Lymphadenopathy , no Thyromegaly , normal thyroid size . eyes : no ptosis , no icterus, no photophobia . ENT : normal of hearing , normal oropharynx , no Thrush . 3- Respiratory : Chest clear to auscultations Bilaterally , no wheezing , no Rhonchi . 4- Cardiovascular : regular rate and rhythem , S1 , S2 , no S3 , no S4. 5- Gastrointestinal : abdomen soft no tenderness , bowel sounds positive all four quadrents , no organomegally . 6- Genitourinary : Defferred . 7- neurologic: Cranial nerve II to XII intact , no focal neurological deffecit . 8- Psychatric: alert , oriented X 3 , appropriate affect , intact judgment and insight . 9- Lymphatic : no Lymphadenopathy . 10- Musculoskeltal : exams of the cervical spine = motor strength normal bilateral upper extremities facet loading test cervical area positive. exams of the Lumber spine =motor strength lower extremities ,thigh and legs .5/5 Assessment and plan = Chronic low back pain secondary to lumbar degenerative disc disease , lumbar spondylosis with facet arthropathy without myelopathy She gets more than 50% increase in her low back pain after the radiofrequency ablation of the medial branch lumbar area chronic and current use of high-risk medication (Opioids). The patient was counseled about risk of opioid use, psychological risk associated with opioids and was orally counseled to not overuse , divert,or sell dictations to take medications as prescribed only , and to restore medication in safe location , the patient counseled against driving while using narcotic medications , and also not to use alcohol or any illicit recreational drugs, patient's verbalized understanding that the lack of compliance will result in failure to renew narcotic prescription and possible discharge from the clinic - diagnoses, prognosis, and treatment options including but not limited to physical therapy, surgical interventions, interventional therapies , and medication management including narcotics and adjuvant medication were discussed with the patient and all the questions answered Prescription refill for [place] 10/325- q 8 hours dispense 90 with 1 refill she will follow with the pain clinic in 2 months Objective - Vital Signs Vital signs: Vital Signs Temp 98.9 F 02/16/18 13:29 Pulse 62 02/16/18 13:29 Resp 16 02/16/18 13:29 BP 166/82 02/16/18 13:29 Pulse Ox Intake & Output 02/15/18 02/16/18 02/16/18 18:59 06:59 18:59 Weight 111.13 kg PQRS Measure Charge Sheet Measure #130: Documentation of Current Meds in Medical Chart: Patient's medications documented in chart Measure #226: Tobacco Use: Screen & Cessation Intervention: Pt screened for tobacco use AND intervention given Measure #111: Pneumonia Vaccination: Pneumococcal vaccine NOT administered or previously given Measure #412: Opioid Treatment Agreement: Documented signed opioid trtmnt agreemnt min once during opioid trtmnt Measure #408: Opioid Therapy Follow-up Evaluation: Patient had f/u eval minimum every 3 months during opioid therapy Measure #317: Preventitive Care & Scrn High Bld Press & F/U: Pre-hypertensive or hypertensive BP documented, pt will f/u with PCP Measure #128: Body Mass Index (BMI) Screening & Follow-up: BMI documented ABOVE normal parameters - f/u documented Measure #131: Pain Assessment & Follow-up: Pain positive & plan documented, Follow-up scheduled Measure #431: Unhealthy Alcohol Use Preventative Care & Scrn: Patient not identified as an unhealthy alcohol user PQRS Narrative: Smoking Status Current every day smoker Do You Want the Pneumonia No Vaccine AT THIS TIME? Narcotic Agreement Date Signed 12/23/15 Blood Pressure 166/82 Pain Intensity [Lower Back] 5 Scale Used Numeric (1 - 10) Hx Alcohol Use (MH) No Home Medications: Ambulatory Orders Albuterol Inhaler [Ventolin Hfa Inhaler] 1 - 2 puff INHALATION Q6HR PRN Beclomethasone Dipropionate [Qvar 40 mcg] 2 applicate INHALATION DAILY PRN 09/28 Esomeprazole Magnesium [NexIUM] 40 mg PO AC-SUPPER 11/03/16 Loratadine [Claritin] 10 mg PO DAILY 11/03/16 Montelukast Sodium [Singulair] 10 mg PO HS 11/03/16 Propranolol [Inderal] 60 mg PO BID 11/03/16 HYDROcodone/APAP 10-325MG [[place] 10-325] 1 tab PO Q8HR PRN #90 tab 10/27/17 Meloxicam [Mobic] 7.5 mg PO DAILY PRN #30 tablet 10/27/17 Controlled Substance Measures - Controlled Substance Measures Is patient prescribed a controlled substance at discharge?: Yes When asked, does pt state using other controlled substances?: Yes If prescribed controlled substance>3 days was MAPS reviewed?: Yes If Rx opioid, was Start Talking consent form obtained?: Yes If opioid is for acute pain is fill amount 7 days or less?: No Was information provided regarding opioid addiction?: Yes
== END | disposition home or self-care (01) ==
LOC: PNWHC3 12:48
PROVIDERS: ATTEND Specialist
DX: G89.29 Other chronic pain (principal); M54.5 Low back pain; M51.36 Other intervertebral disc degeneration, lumbar region; M47.816 Spondylosis without myelopathy or radiculopathy, lumbar region; M46.86 Other specified inflammatory spondylopathies, lumbar region; F17.200 Nicotine dependence, unspecified, uncomplicated; Z79.891 Long term (current) use of opiate analgesic; Z79.899 Other long term (current) drug therapy; Z79.51 Long term (current) use of inhaled steroids
CPT/HCPCS: G0480; G0463; 80356; 99211

== ENCOUNTER → 2018-04-13 | Outpatient (CLI) | payer OTHER ==
[2018-04-13 12:35] VITALS: BP 164/91; PULSE 56; RESP 16
--- NOTE | 2018-04-13 12:48 | P.PN ---
Progress Note - Text Progress Note Date: 04/13/18 Patient returns for followup for chronic back pain without radiation to legs. Patient underwent bilateral lumbar RFA in September and December, which has provided good relief in interval since procedures. Patient states that she would like to repeat the radiofrequency ablation on the right side. She had relief greater than 60% with the previous one done in September. She still has good relief from the left side having been done in December. Patient continues on [place] and Mobic medications for pain with some relief. Patient denies adverse drug effects from medications. Today, pt denies new-onset weakness, bowel/bladder incontinence, or any other signs or symptoms of cauda equina syndrome. There are no signs of acute intoxication, and no indications of medication diversion or overuse. In addition to above, 13-point review of systems is also negative for chest pain , shortness of breath, changes in vision, changes in hearing, new onset weakness , abdominal pain, diarrhea, extreme fatigue, malaise, fever, skin changes, homicidal or suicidal ideation, or bowel or bladder incontinence. Vital Signs: Reviewed in EMR Gen: WDWN, AAOx3, NAD HEENT: NCAT, EOMI, hearing grossly normal Pulm: resp unlabored Abd: soft, NT, ND Neck: supple, trachea midline ROM in flexion lumbar spine: slightly reduced ROM in extension lumbar spine: reduced Lumbar paravertebral tenderness: + Facet loading: +R>>L SI joint tenderness: + bilateral Darin's test: + R side > L side Neuro: CN II-XII grossly intact, muscle strength lower extremities PRESERVED Imaging: Reviewed in EMR Assessment: 1. lumbar spinal stenosis 2. lumbar spondylosis without myelopathy 3. sacroiliac joint dysfunction Plan: 1. Explanation: Opioid and psychological risk scores were reviewed. Diagnoses , prognoses, and multiple treatment options including but not limited to physical therapy, interventional therapies, adjuvant medical therapies, narcotic medication therapies, and surgery were discussed with the patient and all questions were answered to the patient's satisfaction. 2. Opioid agreement: Patient has previously signed narcotic agreement, and was orally counseled to not overuse, abuse, divert, or cell medications, and to take them as prescribed by only 1 healthcare provider. The patient was also counseled to store opioid medications in a safe and preferably locked location. Patient was also counseled against driving while using narcotic medications and also to not use alcohol or any illicit or recreational drugs. The patient verbalized understanding that lack of compliance with any of the above and likely result in failure to renew narcotic prescriptions, possible discharge from the clinic, and possible legal ramifications thereafter if indicated. 3. Counseling: The patient was counseled extensively on SMOKING CESSATION, BODY MASS INDEX, EXERCISE. Specifically, the patient was instructed regarding the importance of smoking cessation, obesity, and exercise in the context of both chronic pain and overall health. 4. Procedures: Right lumbar radiofrequency ablation L3-L4, L4-L5, L5-S1 5. Consultations: None 6. Investigations: UDS today 7. Medications: Buch[place] 10/325 #90 with one refill as well as Mobic 7.5 mg with 4 refills 8. Disposition: f/u for procedure as scheduled PQRS measures: 1-Patient's medications are documented in the chart. 2-Tobacco use is positive, counseling given 3-Patient has not had a pneumococcal vaccine. 4-Advanced care planning discussed, patient unable to give. 5-Opioid contract signed with the patient. 6-Pain positive, follow-up visit or procedure scheduled 7-Patient's blood pressure measured and documented, and WNL. 8-Patient's weight was measured, and body mass index ABOVE the normal limits, and counseling was done. Patient instructed to follow up with PCP. 9-Patient WAS NOT identified as an unhealthy alcohol user.
== END | disposition home or self-care (01) ==
LOC: PNWHC3 12:08
PROVIDERS: ATTEND Anesthesiology
DX: M48.061 Spinal stenosis, lumbar region without neurogenic claudication (principal); M47.816 Spondylosis without myelopathy or radiculopathy, lumbar region; M46.1 Sacroiliitis, not elsewhere classified; Z79.891 Long term (current) use of opiate analgesic; Z72.0 Tobacco use
CPT/HCPCS: 99211

== ENCOUNTER 2018-05-18 09:15 | Day surgery (SDC) | payer OTHER ==
[2018-04-27 14:30] VITALS: BMI 45.7
[2018-05-18] MEDS ORDERED: LIDOCAINE 1% 20 ML VIAL (10MG/ML) FOR IV START INTRADERMA ONE (09:37)
[2018-05-18 09:43] VITALS: RESP 18; TEMP 97.3
--- NOTE | 2018-05-18 10:27 | P.PCN ---
Date of Procedure: 05/18/18 Procedure(s) Performed: PREOPERATIVE DIAGNOSIS: 1-Lumbar Spondylosis with Facet Arthropathy without myelopathy. POSTOPERATIVE DIAGNOSIS: 1- Lumbar Spondylosis with Facet Arthropathy without myelopathy. PROCEDURES : Right Radiofrequency thermocoagulation, L3-L4, L4-L5, and L5-S1 medial branch, with fluoroscopic guidance ANESTHESIA: Moderate sedation with intravenous versed 2 mg, and fentaneyl 100 mcg, and local infiltration with Ropivacaine 0.5 % . EBL: Minimal PROCEDURE INDICATION: The patient with low back pain secondary to lumbar facet arthropathy who had more than 50% relief of her pain with previous diagnostic lumbar medial branch block with bupivacaine. PROCEDURE DESCRIPTION / TECHNIQUE: The patient was seen and identified in the preoperative area. Risks, benefits, complications, including but not limited to risk of infection ,bleeding , allergic reactions to the medications and no complete pain releife , and alternatives were discussed with the patient, the patient agreed to proceed with the procedure and signed the consent. IV was started. Vital signs remained stable throughout the procedure. Patient was taken to the OR and time out was completed. The patient was placed in the prone position on the procedure table. The lumber area was prepped and draped in the usual sterile fashion. . Vital signs were closely monitored during the procedure .IV sedation was used during the procedure to decrease patients anxiety. Using AP and then oblique fluoroscopy, the ``eye of the Steve dog corresponding to the connection between the superior and transverse articular processes of right L3, L4, and L5 were identified, marked, and localized with 1% lidocaine. Subsequently, a 18 [id number] radiofrequency cannula with a 10- mm active tip was advanced guided by fluoroscopy to each of the ``eyes of the Steve dog at right L3, L4, and L5. Each site then underwent sensory testing at 50 Hz and 0 to 1 volt and motor testing at 2.5 Hz and 0 to 3 volt with local stimulation, but no radicular symptoms down the legs. Thereafter the right L3-4, L4-5, and L5-S1 sites underwent radiofrequency thermocoagulation at 80 degrees celsius for 90 seconds after injecting 0.5 ml of PF Ropivacaine 1ml then After the thermocoagulation done , 1 ml of the block solution containing Kenalog 40 mg and 3 ml of Ropivacaine 0.5% was injected at the right L3-4 , L4-5 , and L5-S1, levels after negative aspiration of CSF and blood and with no paresthesias. Cannulas were retracted while injecting lidocaine 1% until the needle is out. At the end of the procedure, the skin was cleansed and bandages were applied. COMPLICATIONS: No acute complications. DISPOSITION / PLANS: The patient was placed in a supine position and transferred to the recovery area in a stable condition for observation and was discharged from the recovery room after meeting discharge criteria. Home discharge instructions given to the patient by the staff. The patient was reexamined prior to discharge. The patient will schedule a follow up in the clinic in 2-4 weeks.
[2018-05-18] MEDS ORDERED: IV FLUID CONTINUATION 1,000 ML IV ONE (10:39)
--- NOTE | 2018-05-18 10:53 | FL ---
EXAMINATION TYPE: FL guided pain mgmt statistic DATE OF EXAM: 05/18/2018 FLUOROSCOPY Fluoroscopy time of 13 seconds was used during right-sided radiofrequency facet block. 2 image/s doc ument/s the procedure.
[2018-05-18 10:59] VITALS: BP 130/78; PULSE 78
== END 2018-05-18 11:21 | disposition home or self-care (01) ==
LOC: ORPAIN 09:15
PROVIDERS: ATTEND Specialist
DX: M47.816 Spondylosis without myelopathy or radiculopathy, lumbar region (principal)
CPT/HCPCS: 64635; 64636 ×2; J2250; J3301; J3010; 99152

== ENCOUNTER → 2018-06-08 | Outpatient (CLI) | payer OTHER ==
[2018-06-08 12:52] VITALS: BP 151/85; PULSE 56; RESP 18; TEMP 98.3
--- NOTE | 2018-06-08 13:34 | P.PAINPG ---
Subjective Progress Note Date: 06/08/18 This is follow-up visit for this patient with a history of severe and chronic low back pain secondary to lumbar degenerative disc diseases , lumbar spondylosis with facet arthropathy, we have done radiofrequency ablation of the medial branch lumbar area L3 4/ L4 5/L5-S1 , the left side was done in December 2017, on the right side was done in 05/18/2018 Patients currently on [place] 10/325 every 8 hours, Mobic 7.5 mg daily Patient denies any side effects of the medication, denies excessive drowsiness or sleepiness, denies suicidal ideation, and reports that the current pain medication is helping To control the pain ,and improve activity of daily living Patient denies any motor or sensory deficit , patient denies any fever or night sweats, denies any change in the bowel movements or urination Physical Examinations : 1-Constitutiona : Cooperative , not in acute distress . 2-HEENT : nech ; supple , no Lymphadenopathy , no Thyromegaly , normal thyroid size . eyes : no ptosis , no icterus, no photophobia . ENT : normal of hearing , normal oropharynx , no Thrush . 3- Respiratory : Chest clear to auscultations Bilaterally , no wheezing , no Rhonchi . 4- Cardiovascular : regular rate and rhythem , S1 , S2 , no S3 , no S4. 5- Gastrointestinal : abdomen soft no tenderness , bowel sounds positive all four quadrents , no organomegally . 6- Genitourinary : Defferred . 7- neurologic : Cranial nerve II to XII intact , no focal neurological deffecit . 8-psychatric : alert , oriented X 3 , appropriate affect , intact judgment and insight . 9-Lymphatic : no Lymphadenopathy . 10- musculoskeltal : exams of the Lumber spine = motor strength lower extremities ,thigh and legs .5/5 Positive for sacroiliitis lumbar area mainly on the left side [id number] tenderness over the sacroiliac joint Assessment and plan = Chronic low back pain secondary to lumbar degenerative disc disease , lumbar spondylosis with facet arthropathy without myelopathy , chronic and current use of high-risk medication (Opioids). The patient was counseled about risk of opioid use, psychological risk associated with opioids and was orally counseled to not overuse , divert,or sell dictations to take medications as prescribed only , and to restore medication in safe location , and the patient counseled against driving while using narcotic medications, and also not to use alcohol or any illicit recreational drugs, the patient's verbalized understanding that the lack of compliance will result in failure to renew narcotic prescription and possible discharge from the clinic - diagnoses, prognosis, and treatment options including but not limited to physical therapy, surgical interventions, interventional therapies , and medication management including narcotics and adjuvant medication were discussed with the patient and all the questions answered prescription refill for [place] 10/325 every 8 hours dispense 90 with 1 refill, Objective - Vital Signs Vital signs: Vital Signs Temp 98.3 F 06/08/18 12:47 Pulse 56 L 06/08/18 12:47 Resp 18 06/08/18 12:47 BP 151/85 06/08/18 12:47 Pulse Ox Intake & Output 06/07/18 06/08/18 06/08/18 18:59 06:59 18:59 Weight 120.202 kg PQRS Measure Charge Sheet Measure #130: Documentation of Current Meds in Medical Chart: Patient's medications documented in chart Measure #226: Tobacco Use: Screen & Cessation Intervention: Pt screened for tobacco use AND intervention given Measure #111: Pneumonia Vaccination: Pneumococcal vaccine NOT administered or previously given Measure #47: Advance Care Plan: Advance care planning discussed & documented, pt chose/unable to give Measure #412: Opioid Treatment Agreement: Documented signed opioid trtmnt agreemnt min once during opioid trtmnt Measure #408: Opioid Therapy Follow-up Evaluation: Patient had f/u eval minimum every 3 months during opioid therapy Measure #317: Preventitive Care & Scrn High Bld Press & F/U: Pre-hypertensive or hypertensive BP documented, pt will f/u with PCP Measure #128: Body Mass Index (BMI) Screening & Follow-up: BMI documented ABOVE normal parameters - f/u documented Measure #131: Pain Assessment & Follow-up: Pain positive & plan documented, Follow-up scheduled Measure #431: Unhealthy Alcohol Use Preventative Care & Scrn: Patient not identified as an unhealthy alcohol user PQRS Narrative: Smoking Status Current every day smoker Do You Want the Pneumonia No Vaccine AT THIS TIME? Narcotic Agreement Date Signed 12/23/15 Blood Pressure 151/85 Pain Intensity [Lower Back] 5 Hx Alcohol Use (MH) No Home Medications: Ambulatory Orders Albuterol Inhaler [Ventolin Hfa Inhaler] 1 - 2 puff INHALATION Q6HR PRN Beclomethasone Dipropionate [Qvar 40 mcg] 2 applicate INHALATION DAILY PRN 09/28 Esomeprazole Magnesium [NexIUM] 40 mg PO AC-SUPPER 11/03/16 Loratadine [Claritin] 10 mg PO DAILY 11/03/16 Montelukast Sodium [Singulair] 10 mg PO HS 11/03/16 Propranolol [Inderal] 60 mg PO BID 11/03/16 HYDROcodone/APAP 10-325MG [[place] 10-325] 1 tab PO Q8HR PRN #90 tab 10/27/17 Meloxicam [Mobic] 7.5 mg PO DAILY PRN #30 tablet 10/27/17 Controlled Substance Measures - Controlled Substance Measures Is patient prescribed a controlled substance at discharge?: Yes When asked, does pt state using other controlled substances?: No If prescribed controlled substance>3 days was MAPS reviewed?: Yes If Rx opioid, was Start Talking consent form obtained?: Yes If opioid is for acute pain is fill amount 7 days or less?: No Was information provided regarding opioid addiction?: Yes
== END | disposition home or self-care (01) ==
LOC: PNWHC3 12:34
PROVIDERS: ATTEND Specialist
DX: G89.29 Other chronic pain (principal); M54.5 Low back pain; M51.36 Other intervertebral disc degeneration, lumbar region; M47.816 Spondylosis without myelopathy or radiculopathy, lumbar region; M46.86 Other specified inflammatory spondylopathies, lumbar region; F11.90 Opioid use, unspecified, uncomplicated; F17.200 Nicotine dependence, unspecified, uncomplicated; Z79.1 Long term (current) use of non-steroidal anti-inflammatories (NSAID); Z71.89 Other specified counseling; Z71.6 Tobacco abuse counseling
CPT/HCPCS: 99211

== ENCOUNTER → 2018-08-03 | Outpatient (CLI) | payer OTHER ==
[2018-08-03 12:53] VITALS: BP 155/76; PULSE 66; RESP 16
--- NOTE | 2018-08-03 13:06 | P.PAINPG ---
Subjective Progress Note Date: 08/03/18 Principal diagnosis: Lumbar spondylosis This is a 42-year-old woman with a long-standing history of back pain secondary to lumbar spondylosis and lumbar spinal stenosis. She undergoes occasional radio frequency ablations of her lumbar medial branch nerves. She reports are helpful. She complains today of low back pain. She is requesting refills of her Boyd. She says this medication helps her function more. She denies any significant side effects. Objective - Vital Signs Vital signs: Vital Signs Temp Pulse 66 08/03/18 12:46 Resp 16 08/03/18 12:46 BP 155/76 08/03/18 12:46 Pulse Ox 98 08/03/18 12:46 Intake & Output 08/02/18 08/03/18 08/03/18 18:59 06:59 18:59 Weight 120.202 kg - Exam General: The patient is alert and oriented. Patient is not sedated Patient answers all question appropriately. Cardiac: Heart is regular in rate and rhythm Respiratory: Clear to auscultation. No audible wheezes. Abdomen: Soft nontender nondistended. Musculoskeletal: Strength is normal bilaterally. Sensation is normal bilaterally. Straight leg raise is negative bilaterally. Facet loading maneuvers are positive bilaterally in the lumbar spine. Neurological: Reflexes are preserved and symmetric bilaterally. Assessment and Plan (1) Spondylosis of lumbar region without myelopathy or radiculopathy Narrative/Plan: Plan of Care 1. Medications: I will refill the patient's Boyd today. She reports this is helpful for her improve her functionality. Her last urine drug screen from January of this year was treated appropriate results. Her maps report reveals no apparent activity. I have reviewed the patient's MAPS report and it reveals expected results. Patient has signed an opiate agreement as well as opiate consent for treatment in our clinic. They understand the risks and benefits of opiate medications. They are aware of the potential for addiction. 2. Interventions: Patient will call to schedule radio frequency ablation of the lumbar medial branch nerves on the left side and as-needed basis. 3. Referrals: Patient was referred back to her primary care physician for weight loss 4. Testing: None 5. Follow-up: 2 months for medication management. Lumbar radio frequency ablation on an as-needed basis on the left side. Current Visit: Yes Status: Acute Code(s): M47.816 - SPONDYLOSIS W/O MYELOPATHY OR RADICULOPATHY, LUMBAR REGION SNOMED Code(s): 10687540 (2) Lumbar spinal stenosis Current Visit: Yes Status: Acute Code(s): M48.061 - SPINAL STENOSIS, LUMBAR REGION WITHOUT NEUROGENIC KEVON SNOMED Code(s): 62029209 PQRS Measure Charge Sheet Measure #130: Documentation of Current Meds in Medical Chart: Patient's medications documented in chart Measure #226: Tobacco Use: Screen & Cessation Intervention: Pt screened for tobacco use AND intervention given Measure #111: Pneumonia Vaccination: Pneumococcal vaccine NOT administered or previously given Measure #47: Advance Care Plan: Advance care planning discussed & documented, pt chose/unable to give Measure #412: Opioid Treatment Agreement: Documented signed opioid trtmnt agreemnt min once during opioid trtmnt Measure #408: Opioid Therapy Follow-up Evaluation: Patient had f/u eval minimum every 3 months during opioid therapy Measure #317: Preventitive Care & Scrn High Bld Press & F/U: Pre-hypertensive or hypertensive BP documented, pt will f/u with PCP Measure #128: Body Mass Index (BMI) Screening & Follow-up: BMI documented ABOVE normal parameters - f/u documented Measure #131: Pain Assessment & Follow-up: Pain positive & plan documented Measure #431: Unhealthy Alcohol Use Preventative Care & Scrn: Patient not identified as an unhealthy alcohol user PQRS Narrative: Smoking Status Current every day smoker Do You Want the Pneumonia No Vaccine AT THIS TIME? Narcotic Agreement Date Signed 02/16/18 Blood Pressure 155/76 Pain Intensity [Lower Back] 6 Hx Alcohol Use (MH) No Home Medications: Ambulatory Orders Albuterol Inhaler [Ventolin Hfa Inhaler] 1 - 2 puff INHALATION Q6HR PRN Beclomethasone Dipropionate [Qvar 40 mcg] 2 applicate INHALATION DAILY PRN 09/28 Esomeprazole Magnesium [NexIUM] 40 mg PO AC-SUPPER 11/03/16 Loratadine [Claritin] 10 mg PO DAILY 11/03/16 Montelukast Sodium [Singulair] 10 mg PO HS 11/03/16 Propranolol [Inderal] 60 mg PO BID 11/03/16 HYDROcodone/APAP 10-325MG [[place] 10-325] 1 tab PO Q8HR PRN #90 tab 10/27/17 Meloxicam [Mobic] 7.5 mg PO DAILY PRN #30 tablet 10/27/17 Controlled Substance Measures - Controlled Substance Measures Is patient prescribed a controlled substance at discharge?: Yes When asked, does pt state using other controlled substances?: No If prescribed controlled substance>3 days was MAPS reviewed?: Yes If Rx opioid, was Start Talking consent form obtained?: Yes
== END | disposition home or self-care (01) ==
LOC: PNWHC3 12:26
PROVIDERS: ATTEND Pain Medicine Pain Medicine
DX: M48.061 Spinal stenosis, lumbar region without neurogenic claudication (principal); M47.816 Spondylosis without myelopathy or radiculopathy, lumbar region; F17.200 Nicotine dependence, unspecified, uncomplicated; Z79.891 Long term (current) use of opiate analgesic; Z79.1 Long term (current) use of non-steroidal anti-inflammatories (NSAID); Z71.6 Tobacco abuse counseling
CPT/HCPCS: 99211

== ENCOUNTER → 2018-09-27 | Outpatient (CLI) | payer OTHER ==
[2018-09-27 14:42] VITALS: BP 165/96; PULSE 61; RESP 18
--- NOTE | 2018-09-27 18:43 | P.PN ---
Subjective Progress Note Date: 09/27/18 This is follow-up visit for this patient with a history of severe and chronic low back pain secondary to lumbar degenerative disc diseases , lumbar spondylosis with facet arthropathy, we have done radiofrequency ablation of the medial branch lumbar area L3 4/ L4 5/L5-S1 , the left side was done in December 2017, on the right side was done in 05/18/2018 Patients currently on [place] 10/325 every 8 hours, Mobic 7.5 mg daily Patient denies any side effects of the medication, denies excessive drowsiness or sleepiness, denies suicidal ideation, and reports that the current pain medication is helping To control the pain ,and improve activity of daily living , and she reported that the medication helped her to function and do activities of daily livings Patient denies any motor or sensory deficit , patient denies any fever or night sweats, denies any change in the bowel movements or urination, Physical Examinations : 1-Constitutiona : Cooperative , not in acute distress . 2-HEENT : nech ; supple eyes : no ptosis , no icterus, no photophobia . 3- neurologic : Cranial nerve II to XII intact , no focal neurological deffecit . 4-psychatric : alert , oriented X 3 , appropriate affect , intact judgment and insight . 5- musculoskeltal : exams of the Lumber spine = motor strength lower extremities ,thigh and legs .5/5 Positive facet loading test lumbar area Assessment and plan = Chronic low back pain secondary to lumbar degenerative disc disease , lumbar spondylosis with facet arthropathy without myelopathy , chronic and current use of high-risk medication (Opioids). The patient was counseled about risk of opioid use, psychological risk associated with opioids and was orally counseled to not overuse , divert,or sell dictations to take medications as prescribed only , and to restore medication in safe location , and the patient counseled against driving while using narcotic medications, and also not to use alcohol or any illicit recreational drugs, the patient's verbalized understanding that the lack of compliance will result in failure to renew narcotic prescription and possible discharge from the clinic - diagnoses, prognosis, and treatment options including but not limited to physical therapy, surgical interventions, interventional therapies , and medication management including narcotics and adjuvant medication were discussed with the patient and all the questions answered prescription refill for [place] 10/325 every 8 hours dispense 90 with 1 refill, PQRS Measure Charge Sheet Measure #130: Documentation of Current Meds in Medical Chart: Patient's medications documented in chart Measure #226: Tobacco Use: Screen & Cessation Intervention: Pt screened for tobacco use AND intervention given Measure #111: Pneumonia Vaccination: Pneumococcal vaccine NOT administered or previously given Measure #47: Advance Care Plan: Advance care planning discussed & documented, pt chose/unable to give Measure #412: Opioid Treatment Agreement: Documented signed opioid trtmnt agreemnt min once during opioid trtmnt Measure #408: Opioid Therapy Follow-up Evaluation: Patient had f/u eval minimum every 3 months during opioid therapy Measure #317: Preventitive Care & Scrn High Bld Press & F/U: Pre-hypertensive or hypertensive BP documented, pt will f/u with PCP Measure #128: Body Mass Index (BMI) Screening & Follow-up: BMI documented ABOVE normal parameters - f/u documented Measure #131: Pain Assessment & Follow-up: Pain positive & plan documented, Follow-up scheduled Measure #431: Unhealthy Alcohol Use Preventative Care & Scrn: Patient not identified as an unhealthy alcohol user PQRS Narrative: - Controlled Substance Measures Is patient prescribed a controlled substance at discharge?: Yes When asked, does pt state using other controlled substances?: No If prescribed controlled substance>3 days was MAPS reviewed?: Yes If Rx opioid, was Start Talking consent form obtained?: Yes If opioid is for acute pain is fill amount 7 days or less?: No Was information provided regarding opioid addiction?: Yes Objective - Vital Signs Vital signs: Vital Signs Temp Pulse 61 09/27/18 14:39 Resp 18 09/27/18 14:39 BP 165/96 09/27/18 14:39 Pulse Ox 98 09/27/18 14:39 Intake & Output 09/26/18 09/27/18 09/27/18 18:59 06:59 18:59 Weight 125.191 kg
== END | disposition home or self-care (01) ==
LOC: PNWHC3 14:35
PROVIDERS: ATTEND Specialist
DX: G89.29 Other chronic pain (principal); M51.36 Other intervertebral disc degeneration, lumbar region; M47.816 Spondylosis without myelopathy or radiculopathy, lumbar region; M46.96 Unspecified inflammatory spondylopathy, lumbar region; Z98.890 Other specified postprocedural states; Z79.891 Long term (current) use of opiate analgesic
CPT/HCPCS: 99211

== ENCOUNTER → 2018-11-22 | Outpatient (CLI) | payer OTHER ==
[2018-11-22 13:14] VITALS: BP 157/95; PULSE 58; RESP 18
--- NOTE | 2018-11-22 13:29 | P.PAINPG ---
Subjective Progress Note Date: 11/22/18 Veronica is a 43-year-old female who presents today with chief complaint of low back pain. She reports she has chronic low back pain across the lumbar spine into the upper thighs. She reports had this pain for years which has been unchanged. She reports that ever since she's had radiofrequency ablation as well as pain medication and her pain is significantly improved. She reports with the pain medication she is able to tolerate doing [id number] spending more time the family. She does not work outside of the home. She is obese and is struggling losing weight. She denies any radicular symptoms or any bowel or bladder incontinence. She denies any problems using [place] as well as Mobic. I explained to her that using Mobic on a daily basis can increase her risk of kidney failure and she reports that she sees her primary care doctor regularly and is checked for that and has no problems. I advised her not to use it every night if possible. Objective - Vital Signs Vital signs: Vital Signs Temp Pulse 58 L 11/22/18 13:10 Resp 18 11/22/18 13:10 BP 157/95 11/22/18 13:10 Pulse Ox 97 11/22/18 13:10 Intake & Output 11/21/18 11/22/18 11/22/18 18:59 06:59 18:59 Weight 115.666 kg - Exam General: Awake and alert oriented 3 no distress, obese Respiratory exam: No audible wheezing no accessory muscle usage Cardiovascular exam: regular rate, palpable bilateral pulses, no lower extremity edema Abdominal exam: No distention nontender to palpation, obese Cervical spine: Normal alignment, Spurling's negative, facet loading negative Lumbar spine: Loss of lumbar lordosis, normal alignment, tender to palpation over bilateral paraspinal muscles, facet loading is positive bilaterally. Straight leg raise is negative. Nontender over the trochanteric bursa Sacroiliac joints: Nontender to palpation, KATIUSKA is negative, [place] negative Neuro exam: Normal sensation in bilateral upper extremities, deep tendon reflexes are 2+ bilateral upper extremities. Normal sensation in bilateral lower extremities. Deep tendon reflexes are 2+ in lower extremities Psych exam: Cooperative, appropriate mood Assessment and Plan Assessment: #1 lumbar spondylosis without myelopathy #2 chronic opioid dependence #3 obesity Plan: Had a long discussion with patient regarding pain medication use and chronic pain. I advised her to try not use the medications, so slowly needed. On today's visit I'll refill her pain medications for 2 months time. I will also get a urine drug screen before she leaves. Also had a discussion with the patient and family regarding her weight and exercise tolerance. Advised her to work on losing weight and avoid drinking excess calories as a first-line to transfer her obesity. PQRS Measure Charge Sheet Measure #130: Documentation of Current Meds in Medical Chart: Patient's medications documented in chart Measure #226: Tobacco Use: Screen & Cessation Intervention: Pt not a tobacco user Measure #111: Pneumonia Vaccination: Pneumococcal vaccine NOT administered or previously given Measure #47: Advance Care Plan: Advance care planning discussed & documented, plan or surrogate given Measure #412: Opioid Treatment Agreement: Documented signed opioid trtmnt agreemnt min once during opioid trtmnt Measure #408: Opioid Therapy Follow-up Evaluation: Patient had f/u eval minimum every 3 months during opioid therapy Measure #317: Preventitive Care & Scrn High Bld Press & F/U: Normal blood pressure, f/u not required Measure #128: Body Mass Index (BMI) Screening & Follow-up: BMI documented ABOVE normal parameters - f/u documented Measure #131: Pain Assessment & Follow-up: Pain positive & plan documented, Follow-up scheduled Measure #431: Unhealthy Alcohol Use Preventative Care & Scrn: Patient not identified as an unhealthy alcohol user PQRS Narrative: Smoking Status Current every day smoker Do You Want the Pneumonia No Vaccine AT THIS TIME? Narcotic Agreement Date Signed 02/16/18 Blood Pressure 157/95 Pain Intensity [Lower Back] 7 Hx Alcohol Use (MH) No Home Medications: Ambulatory Orders Albuterol Inhaler [Ventolin Hfa Inhaler] 1 - 2 puff INHALATION Q6HR PRN 09/12/15 Beclomethasone Dipropionate [Qvar 40 mcg] 2 applicate INHALATION DAILY PRN 09/28/16 Esomeprazole Magnesium [NexIUM] 40 mg PO AC-SUPPER 11/03/16 Loratadine [Claritin] 10 mg PO DAILY 11/03/16 Montelukast Sodium [Singulair] 10 mg PO HS 11/03/16 Propranolol [Inderal] 60 mg PO BID 11/03/16 HYDROcodone/APAP 10-325MG [[place] 10-325] 1 tab PO Q8HR PRN #90 tab 10/27/17 Meloxicam [Mobic] 7.5 mg PO DAILY PRN #30 tablet 10/27/17 Controlled Substance Measures - Controlled Substance Measures Is patient prescribed a controlled substance at discharge?: Yes When asked, does pt state using other controlled substances?: No If prescribed controlled substance>3 days was MAPS reviewed?: Yes If Rx opioid, was Start Talking consent form obtained?: Yes Was information provided regarding opioid addiction?: Yes
== END ==
LOC: PNWHC3 12:54
PROVIDERS: ATTEND Hospitalist
DX: M47.816 Spondylosis without myelopathy or radiculopathy, lumbar region (principal); F11.20 Opioid dependence, uncomplicated; E66.9 Obesity, unspecified; F17.200 Nicotine dependence, unspecified, uncomplicated; Z79.899 Other long term (current) drug therapy; Z79.1 Long term (current) use of non-steroidal anti-inflammatories (NSAID)
CPT/HCPCS: 99211

== ENCOUNTER → 2019-01-17 | Outpatient (CLI) | payer OTHER ==
[2019-01-17 11:31] VITALS: BP 120/74; PULSE 64; RESP 18
--- NOTE | 2019-01-17 11:53 | P.PN ---
Subjective Progress Note Date: 01/17/19 This is a 43-year-old female with history of chronic lower back pain with no radiation to the lower extremities. She also has right knee pain. The patient has been on oral opioids and interventional pain procedures to control her pain. Her last UDS was appropriate it did show hydrocodone, norhydrocodone and lower concentration of hydromorphone. The patient still complains of low back pain. The patient is unemployed. Today, pt denies new-onset weakness, bowel/bladder incontinence, or any other signs or symptoms of cauda equina syndrome. There are no signs of acute intoxication, and no indications of medication diversion or overuse. In addition to above, 13-point review of systems is also negative for chest pain, shortness of breath, changes in vision, changes in hearing, new onset weakness, abdominal pain, diarrhea, extreme fatigue, malaise, fever, skin changes, homicidal or suicidal ideation, or bowel or bladder incontinence. Vital Signs: Reviewed in EMR Gen: AAOx3, NAD HEENT: PERRLA,hearing grossly normal Pulm: resp unlabored,CTA Heart:S1,S2, No Mur Neck: supple, trachea midline Neuro exam of the lower extremities: Normal deep tendon reflexes and muscle strength bilaterally and symmetrically Straight leg raising test: Negative bilaterally Tenderness in the paravertebral musculature: Positive tenderness in the lumbar paravertebral musculature Neuro: CN II-XII grossly intact, Imaging: Reviewed in EMR/chart Assessment: Lumbar spondylosis without myelopathy Right knee joint degeneration Morbid obesity Opioid dependence Tobacco use Plan: 1. Explanation: Opioid and psychological risk scores were reviewed. Diagnoses, prognoses, and multiple treatment options including but not limited to physical therapy, interventional therapies, adjuvant medical therapies, narcotic medication therapies, and surgery were discussed with the patient and all questions were answered to the patient's satisfaction. 2. Opioid agreement: Signed with the patient and the patient is warned not to use opioids while driving or before driving and not to combine opioids with benzodiazepines or alcohol. 3. Counseling: The patient was counseled extensively on SMOKING CESSATION, BODY MASS INDEX, EXERCISE. Specifically, the patient was instructed regarding the importance of smoking cessation, obesity, and exercise in the context of both chronic pain and overall health. 4. Procedures: We will schedule the patient to have right lumbar medial branch RFA 5. Consultations: None 6. Investigations: UDS appropriate 7. Medications: I will decrease her [place] dose from 10 mg to 7.5 mg 3 times a day as needed for pain. I explained to the patient that she should expect gradual decrease of her [place] dose in the future. 8. Disposition: Return to the above-mentioned procedure as soon as possible and to clinic in 8 weeks 9. Maps were reviewed and were appropriate. PQRS measures: 1-Patient's medications are documented in the chart. 2-Tobacco use is positive, counseling given 3-Patient has not had a pneumococcal vaccine. 4-Advanced care planning discussed, patient unable to give 5-Opioid contract signed with the patient. 6-Pain positive, follow-up visit or procedure scheduled 7-Patient's blood pressure measured and documented within normal limits. The patient will follow up with his primary care physician. 8-Patient's weight was measured, and body mass index ABOVE the normal limits, and counseling was done. Patient instructed to follow up with PCP. 9-Patient WAS NOT identified as an unhealthy alcohol user. Controlled Substance Measures Is patient prescribed a controlled substance at discharge?: Yes When asked, does pt state using other controlled substances?: No If prescribed controlled substance>3 days was MAPS reviewed?: Yes If Rx opioid, was Start Talking consent form obtained?: Yes If opioid is for acute pain is fill amount 7 days or less?: No Was information provided regarding opioid addiction?: Yes Objective - Vital Signs Vital signs: Vital Signs Temp Pulse 64 01/17/19 11:27 Resp 18 01/17/19 11:27 BP 120/74 01/17/19 11:27 Pulse Ox 96 01/17/19 11:27 Intake & Output 01/16/19 01/17/19 01/17/19 18:59 06:59 18:59 Weight 122.47 kg
== END ==
LOC: PNWHC3 11:18
PROVIDERS: ATTEND Anesthesiology
DX: G89.29 Other chronic pain (principal); M47.816 Spondylosis without myelopathy or radiculopathy, lumbar region; M17.11 Unilateral primary osteoarthritis, right knee; E66.01 Morbid (severe) obesity due to excess calories; F11.20 Opioid dependence, uncomplicated; Z72.0 Tobacco use; Z71.6 Tobacco abuse counseling
CPT/HCPCS: 99211

== ENCOUNTER 2019-01-31 09:19 | Day surgery (SDC) | payer OTHER ==
[2019-01-26 11:19] VITALS: BMI 51.0
[2019-01-31 09:39] VITALS: TEMP 97.8
[2019-01-31] MEDS ORDERED: LACTATED RINGERS 1,000 ML IV ONE (09:43)
[2019-01-31] MEDS ORDERED: IV FLUID CONTINUATION 1,000 ML IV ONE (10:28)
[2019-01-31 10:33] VITALS: RESP 16
[2019-01-31 10:48] VITALS: BP 112/75; PULSE 58
--- NOTE | 2019-01-31 10:53 | FL ---
EXAMINATION TYPE: FL guided pain mgmt statistic DATE OF EXAM: 01/31/2019 CLINICAL HISTORY: Low back pain. TECHNIQUE: Fluoroscopy. COMPARISON: None. FINDINGS: Fluoroscopic guidance was provided during pain relief procedure performed by Dr. Adame . A total of 6 seconds of fluoroscopic time was utilized during the procedure and two spot images are acquired. Images acquired shows needle localization at several levels off the midline in the mid to lower lumbar spine from a posterior approach. IMPRESSION: As Above.
--- NOTE | 2019-01-31 15:09 | P.PCN ---
Date of Procedure: 01/31/19 Surgeon: Tyrell Adame Description of Procedure: Procedure(s) Performed: PREOPERATIVE DIAGNOSIS: Lumbar Spondylosis POSTOPERATIVE DIAGNOSIS: Same PROCEDURES: Radiofrequency ablation right L3 4, L4 5, L5-S1 with fluoroscopic guidance SURGEON: Tyrell Adame MD. ANESTHESIA: Moderate sedation with intravenous Versed and fentanyl EBL: Minimal PROCEDURE INDICATION: The patient with low back pain secondary to lumbar facet arthropathy who had more than 50% relief of pain with previous diagnostic lumbar medial branch block with bupivacaine. PROCEDURE DESCRIPTION / TECHNIQUE: The patient was seen and identified in the preoperative area. Risks, benefits, complications, including but not limited to risk of infection ,bleeding , allergic reactions to the medications and incomplete pain relief , and alternatives were discussed with the patient, the patient agreed to proceed with the procedure and signed the consent. IV was started. The operative site was marked. Patient was taken to the OR and time out was completed. The patient was placed in the prone position on the procedure table. The lumber area was prepped and draped in the usual sterile fashion. . Vital signs were closely monitored during the procedure .IV sedation was used during the procedure to decrease patients anxiety. Using AP and then oblique fluoroscopy, the ``eye of the Steve dog corresponding to the connection between the superior and transverse articular processes of the above-mentioned levels were identified, marked, and localized with 1% lidocaine. Subsequently, a 20 [id number] radiofrequency cannula with a 10-mm active tip was advanced guided by fluoroscopy to each of the ``eyes of the Steve dog at each site then underwent sensory testing at 50 Hz and 0 to 1 volt and motor testing at 2.5 Hz and 0 to 3 volt with local stimulation, but no radicular symptoms down the legs. Then the sites underwent radiofrequency thermocoagulation at 80 degrees celsius for 90 seconds after injecting 0.5 ml of PF lidocaine 1%. then After the thermocoagulation done , 1 ml of the block solution containing depomedrol 40 mg and 4 ml of marcaine 0.5% was injected in divided doses at each levels after negative aspiration of CSF and blood and with no paresthesias. Sterile dressings were applied. COMPLICATIONS: No acute complications. DISPOSITION / PLANS: The patient was placed in a supine position and transferred to the recovery area in a stable condition for observation and was discharged from the recovery room after meeting discharge criteria. Home discharge instructions given to the patient by the staff. The patient was reexamined prior to discharge. .
== END 2019-01-31 10:59 | disposition home or self-care (01) ==
LOC: ORPAIN 09:19
PROVIDERS: ATTEND Pain Medicine Pain Medicine
DX: G89.29 Other chronic pain (principal); M47.816 Spondylosis without myelopathy or radiculopathy, lumbar region; E66.01 Morbid (severe) obesity due to excess calories; Z68.43 Body mass index [BMI] 50.0-59.9, adult; Z79.891 Long term (current) use of opiate analgesic; Z72.0 Tobacco use; Z98.51 Tubal ligation status
CPT/HCPCS: 81025; 64635; 64636 ×2; J2250; J1030; J2001; J3010; 99152

== ENCOUNTER 2019-03-06 08:13 | Day surgery (SDC) | payer OTHER ==
[2019-03-03 11:28] VITALS: BMI 50.1
[2019-03-06 09:32] VITALS: RESP 16; TEMP 97.4
[2019-03-06] MEDS ORDERED: LIDOCAINE 1% 20 ML VIAL (10MG/ML) FOR IV START INTRADERMA ONE (09:36)
--- NOTE | 2019-03-06 10:42 | P.PCN ---
Date of Procedure: 03/06/19 Procedure(s) Performed: PREOPERATIVE DIAGNOSIS: Lumbar Spondylosis POSTOPERATIVE DIAGNOSIS: Same PROCEDURES: Radiofrequency ablation of the left L3, L4, L5 medial branches with fluoroscopic guidance SURGEON: Greg Carrero MD. ANESTHESIA: Moderate sedation with intravenous Versed and fentanyl EBL: Minimal PROCEDURE INDICATION: The patient with low back pain secondary to lumbar facet arthropathy who had more than 50% relief of pain with previous diagnostic lumbar medial branch block X2. PROCEDURE DESCRIPTION / TECHNIQUE: The patient was seen and identified in the preoperative area. Risks, benefits, complications, including but not limited to risk of infection ,bleeding , allergic reactions to the medications and incomplete pain relief , and alternatives were discussed with the patient, the patient agreed to proceed with the procedure and signed the consent. IV was started. The operative site was marked. Patient was taken to the OR and time out was completed. The patient was placed i n the prone position on the procedure table. The lumber area was prepped and draped in the usual sterile fashion. . Vital signs were closely monitored during the procedure .IV sedation was used during the procedure to decrease patients anxiety. Using AP and then oblique fluoroscopy, the ``eye of the Steve dog corresponding to the connection between the superior and transverse articular processes of the L4 and L5 as well as the sacral ala were identified, marked, and localized with 1% lidocaine. Subsequently, an 18 [id number] radiofrequency cannula with a 10-mm active tip was advanced guided by fluoroscopy to each of the ``eyes of the Steve dog at each site t. Motor testing at 2.5 Hz was done with paraspinal muscle stimulation only, and no radicular symptoms down the legs. Then 1 mL of 4% lidocaine was injected in each site. Radiofrequency thermocoagulation at 80 degrees celsius for 90 seconds was then performed. [place] were removed. Sterile dressings were applied. COMPLICATIONS: No acute complications. DISPOSITION / PLANS: The patient was placed in a supine position and transferred to the recovery area in a stable condition for observation and was discharged from the recovery room after meeting discharge criteria. Home discharge instructions given to the patient by the staff. The patient will follow up in clinic in 4 weeks.
[2019-03-06] MEDS ORDERED: IV FLUID CONTINUATION 550 ML IV ONE (10:44)
--- NOTE | 2019-03-06 10:54 | FL ---
Fluoroscopy INDICATION: Pain FINDINGS: Fluoroscopy time: 13 seconds. Images obtained: 7. IMPRESSIONS: 1. Documentation of fluoroscopy.
[2019-03-06 11:01] VITALS: BP 127/76; PULSE 54
== END 2019-03-06 11:19 | disposition home or self-care (01) ==
LOC: ORPAIN 08:13
PROVIDERS: ATTEND Anesthesiology
DX: M47.896 Other spondylosis, lumbar region (principal)
CPT/HCPCS: 81025; 64635; 64636; J2250; J3010; 99152

== ENCOUNTER → 2019-03-14 | Outpatient (CLI) | payer OTHER ==
[2019-03-14 11:29] VITALS: BP 142/81; PULSE 55; RESP 18
--- NOTE | 2019-03-15 13:31 | P.PAINPG ---
Subjective Progress Note Date: 03/14/19 This is a 43-year-old female with history of chronic lower back pain with no radiation to the lower extremities. The patient has been on oral opioids and interventional pain procedures to control her pain. Her last UDS was appropriate it did show hydrocodone, norhydrocodone and lower concentration of hydromorphone. The patient still complains of low back pain. The patient is unemployed. She underwent radiofrequency ablation of the lumbar area, right side on 01/31/2019 and left side 03/06/2019. She reports about 50% benefit from these procedures she states that with the combination of medications and interventions, her pain is well controlled and she rates her pain at about 2-4 on 10. She does not experience any side effects from medications, and they are helping her function. We discussed side effects of narcotics and need to wean the patient off narcotics. Review of systems is negative for chest pain, shortness of breath, new onset weakness, numbness/tingling, abdominal pain, malaise, fever, night sweats, chills, homicidal or suicidal ideation, or bowel or bladder incontinence. Today, pt denies new-onset weakness, bowel/bladder incontinence, or any other signs or symptoms of cauda equina syndrome. There are no signs of acute intoxication, and no indications of medication diversion or overuse. Physical exam: Vitals: Reviewed in EMR GENERAL: Well appearing, in no acute distress PSYCH: Mood and affect is appropriate. Awake, alert, and oriented SKIN: Skin color, texture, turgor normal, no rashes or lesions HEENT: Normocephalic, atraumatic. EOM intact CV: No pedal edema RESP: Respirations are unlabored, no audible wheezing GI: Abdomen non-distended MUSCULOSKELETAL: Bilateral upper and lower extremity strength is normal and symmetric. No atrophy or tone abnormalities are noted. Lumbar spine: Straight leg raising in the sitting position is negative for radicular pain. Tenderness to palpation over the lumbar spine and paraspinous muscles. Positive for pain with facet loading and back extension/rotation. Buttocks: No pain to palpation over the PSIS, sacroiliac joint maneuvers are negative for pain. Extremities: Peripheral joint ROM is full and pain free without obvious instability or laxity in all four extremities. No edema or skin discolorations noted. Gait: Gait is normal NEUR: Bilateral lower extremity coordination and muscle stretch reflexes are physiologic and symmetric. Negative clonus bilaterally. No loss of sensation is noted. Imaging: Reviewed in EMR/chart Assessment: Lumbar spondylosis without myelopathy Right knee joint degeneration Morbid obesity Opioid dependence Tobacco use Plan: 1. Explanation: Opioid and psychological risk scores were reviewed. Diagnoses, prognoses, and multiple treatment options including but not limited to physical therapy, interventional therapies, adjuvant medical therapies, narcotic medication therapies, and surgery were discussed with the patient and all questions were answered to the patient's satisfaction. 2. Opioid agreement: Signed with the patient and the patient is warned not to use opioids while driving or before driving and not to combine opioids with benzodiazepines or alcohol. 3. Counseling: The patient was counseled extensively on SMOKING CESSATION. Specifically, the patient was instructed regarding the importance of smoking cessation in the context of both chronic pain and overall health. 4. Procedures: None currently 5. Consultations: None 6. Investigations: None 7. Medications:[place] prescription refill today 7.5 mg #90, with one refill. I explained to the patient that she should expect gradual decrease of her [place] dose in the future. Mobic 7.5 mg daily also refill today 8. Disposition: Return to clinic in 8 weeks 9. Maps were reviewed and were appropriate. Objective - Vital Signs Vital signs: Vital Signs Temp Pulse 55 L 03/14/19 11:25 Resp 18 03/14/19 11:25 BP 142/81 03/14/19 11:25 Pulse Ox 98 03/14/19 11:25 Intake & Output 03/14/19 03/15/19 03/15/19 18:59 06:59 18:59 Weight 122.47 kg PQRS Measure Charge Sheet Measure #130: Documentation of Current Meds in Medical Chart: Patient's medications documented in chart Measure #226: Tobacco Use: Screen & Cessation Intervention: Pt screened for tobacco use AND intervention given Measure #111: Pneumonia Vaccination: Pneumococcal vaccine NOT administered or previously given Measure #47: Advance Care Plan: Advance care planning discussed & documented, pt chose/unable to give Measure #412: Opioid Treatment Agreement: Documented signed opioid trtmnt agreemnt min once during opioid trtmnt Measure #408: Opioid Therapy Follow-up Evaluation: Patient had f/u eval minimum every 3 months during opioid therapy Measure #317: Preventitive Care & Scrn High Bld Press & F/U: Pre-hypertensive or hypertensive BP documented, pt will f/u with PCP Measure #128: Body Mass Index (BMI) Screening & Follow-up: BMI documented ABOVE normal parameters - f/u documented Measure #131: Pain Assessment & Follow-up: Pain positive & plan documented, Follow-up scheduled Measure #431: Unhealthy Alcohol Use Preventative Care & Scrn: Patient not identified as an unhealthy alcohol user PQRS Narrative: Smoking Status Current every day smoker Narcotic Agreement Date Signed 03/14/19 Blood Pressure 142/81 Pain Intensity [Right Lower 5 Back] Scale Used Numeric (1 - 10) Hx Alcohol Use (MH) No Home Medications: Ambulatory Orders Albuterol Inhaler [Ventolin Hfa Inhaler] 1 - 2 puff INHALATION Q6HR PRN 09/12/15 Beclomethasone Dipropionate [Qvar 40 mcg] 2 applicate INHALATION DAILY PRN 09/28/16 Loratadine [Claritin] 10 mg PO DAILY 11/03/16 Montelukast Sodium [Singulair] 10 mg PO HS 11/03/16 Propranolol [Inderal] 60 mg PO BID 11/03/16 HYDROcodone/APAP 10-325MG [[place] 10-325] 1 tab PO Q8HR PRN #90 tab 10/27/17 Meloxicam [Mobic] 7.5 mg PO DAILY PRN #30 tablet 10/27/17 Controlled Substance Measures - Controlled Substance Measures Is patient prescribed a controlled substance at discharge?: No
== END | disposition home or self-care (01) ==
LOC: PNWHC3 11:06
PROVIDERS: ATTEND Anesthesiology
DX: G89.29 Other chronic pain (principal); M47.816 Spondylosis without myelopathy or radiculopathy, lumbar region; M17.11 Unilateral primary osteoarthritis, right knee; E66.01 Morbid (severe) obesity due to excess calories; F11.20 Opioid dependence, uncomplicated; F17.200 Nicotine dependence, unspecified, uncomplicated; Z98.890 Other specified postprocedural states; Z68.43 Body mass index [BMI] 50.0-59.9, adult
CPT/HCPCS: 99211

== ENCOUNTER → 2019-05-09 | Outpatient (CLI) | payer OTHER ==
--- NOTE | 2019-05-09 14:08 | P.PAINPG ---
Subjective Progress Note Date: 05/09/19 This is follow up visit for this 43-year-old female with history of chronic lower back pain with no radiation to the lower extremities. The pain controlled between the interventional pain management and oral pain medications, previously we have done radiofrequency ablation of the medial branch lumbar area. She reports about 50% benefit from these procedures she states that with the combination of medications and interventions, her pain is well controlled and she rates her pain at about 2-4 on 10. She does not experience any side effects from medications, and they are helping her function. We discussed side effects of narcotics and need to wean the patient off narcotics. Review of systems is negative for chest pain, shortness of breath, new onset weakness, numbness/tingling, abdominal pain, malaise, fever, night sweats, chills, homicidal or suicidal ideation, or bowel or bladder incontinence. Objective - Vital Signs Vital signs: Vital Signs Temp Pulse 58 L 05/09/19 12:52 Resp 15 05/09/19 12:52 BP 153/88 05/09/19 12:52 Pulse Ox 99 05/09/19 12:52 Intake & Output 05/08/19 05/09/19 05/09/19 18:59 06:59 18:59 Weight 124.738 kg - Exam Physical Examinations : -Constitutiona : Cooperative , not in acute distress . -HEENT : nech : supple , no Lymphadenopathy , normal thyroid size . eyes : no ptosis , no icterus, no photophobia . - neurologic : Cranial nerve II to XII intact , no focal neurological deffecit . -psychatric : alert , oriented X 3 , appropriate affect , intact judgment and insight . -Lymphatic : no Lymphadenopathy . - musculoskeltal : Lumber spine moter stegnth lower extremities ,thigh and legs 5/5 Right side , 5/5 Left side deep tendon reflexes : normal Knee Jerk , normal ankle Jerk positive lumber facet Loading Test Range of motion of the lumbar spine Flexion 30 degrees, extension 10 degrees Assessment and Plan Plan: Assessment and plan= chronic low back pain secondary to lumbar spondylosis with lumbar facet arthropathy . The patient had good results after the radiofrequency ablation of the medial branch lumbar area done a few months ago chronic and current use of high-risk medication (opioids) Patient denies any side effects of the current pain medication and the current treatment/medication helping the patient to do activity of daily living , Diagnoses, prognosis, treatment options, including but not limited to physical therapy, medication management, interventional therapies, and surgery, were discussed with the patient All the questions answered The narcotic consent was signed and patient agreed and understood the side effects and complications of opioid treatment. Patient signed the narcotic agreement, and was orally counseled, not to overuse, not to abuse, not to Divert , not tp sell pain medication, and to take it as prescribed only, Patient was counseled not to drive or operate heavy equipment while using narcotic medication, and advised not to use alcohol or any Illicit drugs while using the narcotis. understanding that lack of compliance with any of the above instructions, will likely to cause discharge from, the pain service, not to renew his narcotic prescriptions MAPS Reviwed and it was apropriate . Medication managements= patient will be given prescription refills for [place] 7.5/325 every 8 hours dispense 90 with 1 refill, Mobic 7.5 mg 1 tablet by mouth daily when necessary , Time with Patient: Less than 30 PQRS Measure Charge Sheet Measure #130: Documentation of Current Meds in Medical Chart: Patient's medications documented in chart Measure #226: Tobacco Use: Screen & Cessation Intervention: Pt screened for tobacco use AND intervention given Measure #111: Pneumonia Vaccination: Pneumococcal vaccine NOT administered or previously given Measure #47: Advance Care Plan: Advance care planning discussed & documented, pt chose/unable to give Measure #412: Opioid Treatment Agreement: Documented signed opioid trtmnt agreemnt min once during opioid trtmnt Measure #408: Opioid Therapy Follow-up Evaluation: Patient had f/u eval minimum every 3 months during opioid therapy Measure #317: Preventitive Care & Scrn High Bld Press & F/U: Pre-hypertensive or hypertensive BP documented, pt will f/u with PCP Measure #128: Body Mass Index (BMI) Screening & Follow-up: BMI documented ABOVE normal parameters - f/u documented Measure #131: Pain Assessment & Follow-up: Pain positive & plan documented, Follow-up scheduled Measure #431: Unhealthy Alcohol Use Preventative Care & Scrn: Patient not identified as an unhealthy alcohol user PQRS Narrative: Smoking Status Current every day smoker Narcotic Agreement Date Signed 03/14/19 Blood Pressure 153/88 Pain Intensity [Lower Back] 7 Hx Alcohol Use (MH) No Home Medications: Ambulatory Orders Albuterol Inhaler [Ventolin Hfa Inhaler] 1 - 2 puff INHALATION Q6HR PRN 09/12/15 Beclomethasone Dipropionate [Qvar 40 mcg] 2 applicate INHALATION DAILY PRN 02/06 Loratadine [Claritin] 10 mg PO DAILY 11/03/16 Montelukast Sodium [Singulair] 10 mg PO HS 11/03/16 Propranolol [Inderal] 60 mg PO BID 11/03/16 HYDROcodone/APAP 7.5-325MG [[place] 7.5-325] 1 tab PO Q4-6H PRN #90 tab 05/09/19 HYDROcodone/APAP 7.5-325MG [[place] 7.5-325] 1 tab PO Q8H PRN 30 Days #90 tab 05/09/19 Meloxicam [Mobic] 7.5 mg PO DAILY PRN #30 tablet 05/09/19 Controlled Substance Measures - Controlled Substance Measures Is patient prescribed a controlled substance at discharge?: Yes When asked, does pt state using other controlled substances?: No If prescribed controlled substance>3 days was MAPS reviewed?: Yes If Rx opioid, was Start Talking consent form obtained?: Yes If opioid is for acute pain is fill amount 7 days or less?: No Was information provided regarding opioid addiction?: Yes
[2019-05-09 14:09] VITALS: BP 153/88; PULSE 58; RESP 15
== END | disposition home or self-care (01) ==
LOC: PNWHC3 12:32
PROVIDERS: ATTEND Specialist
DX: G89.29 Other chronic pain (principal); M47.816 Spondylosis without myelopathy or radiculopathy, lumbar region; M46.96 Unspecified inflammatory spondylopathy, lumbar region; F17.200 Nicotine dependence, unspecified, uncomplicated; Z98.890 Other specified postprocedural states; Z79.899 Other long term (current) drug therapy
CPT/HCPCS: 99211

== ENCOUNTER → 2019-07-06 | Outpatient (CLI) | payer OTHER ==
[2019-07-06 11:14] VITALS: BP 126/81; PULSE 54; RESP 16
--- NOTE | 2019-07-11 10:52 | P.PAINPG ---
Subjective Progress Note Date: 07/06/19 This is a 43-year-old female with history of chronic lower back pain with no radiation to the lower extremities. The patient has been on oral opioids and interventional pain procedures to control her pain. The patient still complains of low back pain, primarily located in the left side, as well as right lateral hip pain. The right lateral hip pain is relatively new, and has been present for about 3-4 weeks, worse on laying on the right side. Pain rated as 310/10, rated as 7/10 today. The patient is unemployed. She underwent radiofrequency ablation of the lumbar area, right side on 01/31/2019 and left side 03/06/2019. She reports about 50% benefit from these procedures. She does not experience any side effects from medications, and they are helping her function. We discussed side effects of narcotics and need to wean the patient off narcotics, at the last visit [place] dose was reduced to 7.5 mg daily. She was also started on Mobic. Today, she also complains of bilateral numbness and tingling in her hands. I asked her to discuss the possibility of carpal tunnel syndrome with her primary care physician. Review of systems is negative for chest pain, shortness of breath, new onset weakness, numbness/tingling, abdominal pain, malaise, fever, night sweats, chills, homicidal or suicidal ideation, or bowel or bladder incontinence. Today, pt denies new-onset weakness, bowel/bladder incontinence, or any other signs or symptoms of cauda equina syndrome. There are no signs of acute intoxication, and no indications of medication diversion or overuse. Physical exam: Vitals: Reviewed in EMR GENERAL: Well appearing, in no acute distress, morbidly obese PSYCH: Mood and affect is appropriate. Awake, alert, and oriented SKIN: Skin color, texture, turgor normal, no rashes or lesions HEENT: Normocephalic, atraumatic. EOM intact CV: No pedal edema RESP: Respirations are unlabored, no audible wheezing GI: Abdomen obese MUSCULOSKELETAL: Bilateral lower extremity strength is normal and symmetric. No atrophy or tone abnormalities are noted. Lumbar spine: Tenderness to palpation over the lumbar spine and paraspinous muscles. Positive for pain with facet loading on the left side. Buttocks: No pain to palpation over the PSIS, sacroiliac joint maneuvers are negative for pain. Tenderness to palpation at right lateral hip, in the greater trochanter bursa area Extremities: Peripheral joint ROM is full and pain free without obvious instability or laxity in all four extremities. No edema or skin discolorations noted. Gait: Gait is normal NEUR: Bilateral lower extremity coordination and muscle stretch reflexes are physiologic and symmetric. Negative clonus bilaterally. No loss of sensation is noted. Imaging: Reviewed in EMR/chart Assessment: Lumbar spondylosis without myelopathy Right greater trochanter bursitis Right knee joint degeneration Morbid obesity Opioid dependence Tobacco use Plan: 1. Explanation: Opioid and psychological risk scores were reviewed. Diagnoses, prognoses, and multiple treatment options including but not limited to physical therapy, interventional therapies, adjuvant medical therapies, narcotic medication therapies, and surgery were discussed with the patient and all questions were answered to the patient's satisfaction. 2. Opioid agreement: Signed with the patient and the patient is warned not to use opioids while driving or before driving and not to combine opioids with benzodiazepines or alcohol. 3. Counseling: The patient was counseled for 4 minutes on SMOKING CESSATION. Specifically, the patient was instructed regarding the importance of smoking cessation in the context of both chronic pain and overall health. She was also counseled on the importance of weight loss and low back exercises. 4. Procedures: We will schedule right greater trochanter bursa injection 5. Consultations: Prescription for physical therapy provided, to learn home exercise program 6. Investigations: None 7. Medications:[place] prescription refill today 7.5 mg #90, with one refill. I explained to the patient that at the next visit we will continue to reduce her [place] to 5 mg daily. She is agreeable to this plan. Mobic was increased from 7.5 mg to 15 mg daily today 8. Disposition: For above-mentioned procedure 9. Maps were reviewed and were appropriate. PQRS Measure Charge Sheet Measure #130: Documentation of Current Meds in Medical Chart: Patient's me dications documented in chart Measure #226: Tobacco Use: Screen & Cessation Intervention: Pt screened for tobacco use AND intervention given Measure #111: Pneumonia Vaccination: Pneumococcal vaccine NOT administered or previously given Measure #47: Advance Care Plan: Advance care planning discussed & documented, pt chose/unable to give Measure #412: Opioid Treatment Agreement: Documented signed opioid trtmnt agreemnt min once during opioid trtmnt Measure #408: Opioid Therapy Follow-up Evaluation: Patient had f/u eval minimum every 3 months during opioid therapy Measure #317: Preventitive Care & Scrn High Bld Press & F/U: Normal blood pressure, f/u not required Measure #128: Body Mass Index (BMI) Screening & Follow-up: BMI documented BELOW normal parameters - f/u documented Measure #131: Pain Assessment & Follow-up: Pain positive & plan documented, Follow-up scheduled Measure #431: Unhealthy Alcohol Use Preventative Care & Scrn: Patient not identified as an unhealthy alcohol user PQRS Narrative: Smoking Status Current every day smoker Narcotic Agreement Date Signed 03/14/19 Pain Intensity [Left Lower 7 Back] Scale Used Numeric (1 - 10) Hx Alcohol Use (MH) No Home Medications: Ambulatory Orders Albuterol Inhaler [Ventolin Hfa Inhaler] 1 - 2 puff INHALATION Q6HR PRN 09/12/15 Beclomethasone Dipropionate [Qvar 40 mcg] 2 applicate INHALATION DAILY PRN 09/28/16 Loratadine [Claritin] 10 mg PO DAILY 11/03/16 Montelukast Sodium [Singulair] 10 mg PO HS 11/03/16 Propranolol [Inderal] 60 mg PO BID 11/03/16 HYDROcodone/APAP 7.5-325MG [[place] 7.5-325] 1 tab PO Q4-6H PRN #90 tab 05/09/19 Meloxicam [Mobic] 7.5 mg PO DAILY PRN #30 tablet 05/09/19 Naproxen 500 mg PO BID 06/28/19 Controlled Substance Measures - Controlled Substance Measures Is patient prescribed a controlled substance at discharge?: Yes When asked, does pt state using other controlled substances?: No If prescribed controlled substance>3 days was MAPS reviewed?: Yes If Rx opioid, was Start Talking consent form obtained?: Yes If opioid is for acute pain is fill amount 7 days or less?: No Was information provided regarding opioid addiction?: Yes
== END | disposition home or self-care (01) ==
LOC: PNWHC3 10:26
PROVIDERS: ATTEND Anesthesiology
DX: G89.29 Other chronic pain (principal); M47.816 Spondylosis without myelopathy or radiculopathy, lumbar region; M70.62 Trochanteric bursitis, left hip; M17.11 Unilateral primary osteoarthritis, right knee; E66.01 Morbid (severe) obesity due to excess calories; F11.20 Opioid dependence, uncomplicated; R20.0 Anesthesia of skin; Z68.42 Body mass index [BMI] 45.0-49.9, adult; F17.200 Nicotine dependence, unspecified, uncomplicated; Z98.890 Other specified postprocedural states; Z79.899 Other long term (current) drug therapy
CPT/HCPCS: 99211

== ENCOUNTER → 2019-08-31 | Outpatient (CLI) | payer OTHER ==
[2019-08-31 11:51] VITALS: BP 108/75; PULSE 61; RESP 18
--- NOTE | 2019-09-01 07:36 | P.PAINPG ---
Subjective Progress Note Date: 08/31/19 This is a 43-year-old female with history of chronic lower back pain with no radiation to the lower extremities. The patient has been on oral opioids and interventional pain procedures to control her pain. The patient still complains of low back pain and right lateral hip pain as well as right knee amaris n, no changes from prior pain complaints. Pain rated as 7/10 today. She is scheduled to see a orthopedic surgeon regarding her knee in the future. The patient is unemployed. She is scheduled to undergo a greater trochanter injection, however has been suffering from a respiratory tract infection, so this is on hold. She does not experience any side effects from medications, and they are helping her function. We discussed side effects of narcotics and the need to wean the patient off narcotics, and today we plan on continuing to wean [place] dose from 7.5 mg to 5 mg. her primary care physician has switched her from to naproxen. Review of systems is negative for chest pain, new onset weakness, numbness/tingling, abdominal pain, malaise, fever, night sweats, chills, homicidal or suicidal ideation, or bowel or bladder incontinence. She is currently suffering from an upper respiratory tract infection, on steroidsshe is having coughing and shortness of breath with this. She is been on steroids for 2 weeks. Today, pt denies new-onset weakness, bowel/bladder incontinence, or any other signs or symptoms of cauda equina syndrome. There are no signs of acute intoxication, and no indications of medication diversion or overuse. Physical exam: Vitals: Reviewed in EMR GENERAL: Well appearing, in no acute distress, morbidly obese PSYCH: Mood and affect is appropriate. Awake, alert, and oriented SKIN: Skin color, texture, turgor normal, no rashes or lesions HEENT: Normocephalic, atraumatic. EOM intact CV: No pedal edema RESP: Respirations are unlabored, no audible wheezing GI: Abdomen obese MUSCULOSKELETAL: Bilateral lower extremity strength is normal and symmetric. No atrophy or tone abnormalities are noted. Lumbar spine: Tenderness to palpation over the lumbar spine and paraspinous muscles. Positive for pain with facet loading. Buttocks: No pain to palpation over the PSIS, sacroiliac joint maneuvers are negative for pain. Tenderness to palpation at right lateral hip, in the greater trochanter bursa area Extremities: Peripheral joint ROM is full and pain free without obvious instability or laxity in all four extremities. No edema or skin discolorations noted. Tenderness to palpation along right medial and lateral knee joint. Gait: Gait is slow NEUR: Bilateral lower extremity coordination and muscle stretch reflexes are physiologic and symmetric. Negative clonus bilaterally. No loss of sensation is noted. Imaging: Reviewed in EMR/chart Assessment: Lumbar spondylosis without myelopathy Right greater trochanter bursitis Right knee joint degeneration Morbid obesity Opioid dependence Tobacco use Plan: 1. Explanation: Opioid and psychological risk scores were reviewed. Diagnoses, prognoses, and multiple treatment options including but not limited to physical therapy, interventional therapies, adjuvant medical therapies, narcotic medication therapies, and surgery were discussed with the patient and all questions were answered to the patient's satisfaction. 2. Opioid agreement: Signed with the patient and the patient is warned not to use opioids while driving or before driving and not to combine opioids with benzodiazepines or alcohol. 3. Counseling: The patient was counseled for 3 minutes on SMOKING CESSATION. Specifically, the patient was instructed regarding the importance of smoking cessation in the context of both chronic pain and overall health. She was also counseled on the importance of weight loss and low back exercises. 4. Procedures: right greater trochanter bursa injection to be scheduled one month after cessation of oral steroids 5. Consultations: None currently 6. Investigations: None 7. Medications:[place] prescription reduced today from 7.5 mg #90 to 5 mg #90, with 1 refill given. We will plan on continuing to gradually wean narcotics. She is agreeable to this plan. Patient does not require refills of Mobic, as her primary care physician is prescribing her naproxen 8. Disposition: For above-mentioned procedure and in 8 weeks for medication refill 9. Maps were reviewed and were appropriate. Urine drug screen sent today PQRS Measure Charge Sheet Measure #130: Documentation of Current Meds in Medical Chart: Patient's medications documented in chart Measure #226: Tobacco Use: Screen & Cessation Intervention: Pt screened for tobacco use AND intervention given Measure #111: Pneumonia Vaccination: Pneumococcal vaccine NOT administered or previously given Measure #47: Advance Care Plan: Advance care planning discussed & documented, pt chose/unable to give Measure #412: Opioid Treatment Agreement: Documented signed opioid trtmnt agreemnt min once during opioid trtmnt Measure #408: Opioid Therapy Follow-up Evaluation: Patient had f/u eval minimum every 3 months during opioid therapy Measure #317: Preventitive Care & Scrn High Bld Press & F/U: Normal blood pressure, f/u not required Measure #128: Body Mass Index (BMI) Screening & Follow-up: BMI documented above normal parameters - f/u documented Measure #131: Pain Assessment & Follow-up: Pain positive & plan documented, Follow-up scheduled Measure #431: Unhealthy Alcohol Use Preventative Care & Scrn: Patient not identified as an unhealthy alcohol user Objective - Vital Signs Vital signs: Intake & Output 08/30/19 08/31/19 08/31/19 18:59 06:59 18:59 Weight 125.191 kg PQRS Measure Charge Sheet PQRS Narrative: Smoking Status Current every day smoker Narcotic Agreement Date Signed 07/06/19 Pain Intensity [Lower Back] 7 Scale Used Numeric (1 - 10) Hx Alcohol Use (MH) No Home Medications: Ambulatory Orders Albuterol Inhaler [Ventolin Hfa Inhaler] 1 - 2 puff INHALATION Q6HR PRN 09/12/15 Beclomethasone Dipropionate [Qvar 40 mcg] 2 puff INHALATION DAILY PRN 09/28/16 Loratadine [Claritin] 10 mg PO DAILY 11/03/16 Montelukast Sodium [Singulair] 10 mg PO HS 11/03/16 Propranolol [Inderal] 60 mg PO BID 11/03/16 HYDROcodone/APAP 7.5-325MG [[place] 7.5-325] 1 tab PO Q4-6H PRN #90 tab 05/09/19 Naproxen 500 mg PO BID 06/28/19 Controlled Substance Measures - Controlled Substance Measures Is patient prescribed a controlled substance at discharge?: Yes When asked, does pt state using other controlled substances?: No If prescribed controlled substance>3 days was MAPS reviewed?: Yes If Rx opioid, was Start Talking consent form obtained?: Yes If opioid is for acute pain is fill amount 7 days or less?: No Was information provided regarding opioid addiction?: Yes
== END | disposition home or self-care (01) ==
LOC: PNWHC3 11:21
PROVIDERS: ATTEND Anesthesiology
DX: M47.816 Spondylosis without myelopathy or radiculopathy, lumbar region (principal); M70.61 Trochanteric bursitis, right hip; M17.11 Unilateral primary osteoarthritis, right knee; E66.01 Morbid (severe) obesity due to excess calories; F11.20 Opioid dependence, uncomplicated; F17.200 Nicotine dependence, unspecified, uncomplicated; Z79.51 Long term (current) use of inhaled steroids; Z79.1 Long term (current) use of non-steroidal anti-inflammatories (NSAID); Z79.899 Other long term (current) drug therapy; Z68.43 Body mass index [BMI] 50.0-59.9, adult
CPT/HCPCS: 80307; G0482; G0463; 99211

== ENCOUNTER → 2019-10-26 | Outpatient (CLI) | payer OTHER ==
--- NOTE | 2019-10-26 12:29 | P.PAINPG ---
Subjective Progress Note Date: 10/26/19 This is follow up visit for this 44 year-old female with history of chronic lower back pain with no radiation to the lower extremities. The pain controlled between the interventional pain management and oral pain medications, previously we have done radiofrequency ablation of the medial branch lumbar area. She does not experience any side effects from medications, and the medication helping her to do activity of daily livings. She is complaining of bilateral knee pain and top of her low back pain Review of systems is negative for chest pain, shortness of breath, new onset weakness, numbness/tingling, abdominal pain, malaise, fever, night sweats, chills, homicidal or suicidal ideation, or bowel or bladder incontinence. Objective - Vital Signs Vital signs: Vital Signs Temp Pulse 61 10/26/19 12:01 Resp 20 10/26/19 12:01 BP 149/63 10/26/19 12: Pulse Ox 97 10/26/19 12:01 - Exam Physical Examinations : -Constitutiona : Cooperative , not in acute distress . -HEENT : nech : supple , no Lymphadenopathy , normal thyroid size . : eyes : no ptosis , no icterus, no ph otophobia . - neurologic : Cranial nerve II to XII intact , no focal neurological deffecit . -psychatric : alert , oriented X 3 , appropriate affect , intact judgment and insight . -Lymphatic : no Lymphadenopathy . - musculoskeltal : Lumber spine moter stegnth lower extremities ,thigh and legs 5/5 Right side , 5/5 Left side deep tendon reflexes : normal Knee Jerk , normal ankle Jerk lumber facet Loading Test =positive Right , positive Left Range of motion of the lumbar spine Flexion 30 degrees, extension 10 degrees strait leg raising test = positive at degree Fabere test= positive Right , and positive LT . Assessment and Plan Plan: chronic low back pain secondary to lumbar spondylosis with lumbar facet arthropathy . The patient had good results after the radiofrequency ablation of the medial branch lumbar area done last year chronic and current use of high-risk medication (opioids) Patient denies any side effects of the current pain medication and the current treatment/medication helping the patient to do activity of daily living , Diagnoses, prognosis, treatment options, including but not limited to physical therapy, medication management, interventional therapies, and surgery, were discussed with the patient All the questions answered The narcotic consent was signed and patient agreed and understood the side effects and complications of opioid treatment. Patient signed the narcotic agreement, and was orally counseled, not to overuse, not to abuse, not to Divert , not tp sell pain medication, and to take it as prescribed only, Patient was counseled not to drive or operate heavy equipment while using narcotic medication, and advised not to use alcohol or any Illicit drugs while using the narcotis. understanding that lack of compliance with any of the above instructions, will likely to cause discharge from, the pain service, not to renew his narcotic prescriptions MAPS Reviwed and it was apropriate . Medication managements= patient will be given prescription refills for [place] 5/325 every 8 hours dispense 90 with 1 refill. Interventions= patient could benefit from repeat RFA of the medial branch lumbar area , Time with Patient: Less than 30 PQRS Measure Charge Sheet Measure #226: Tobacco Use: Screen & Cessation Intervention: Pt screened for tobacco use AND intervention given Measure #111: Pneumonia Vaccination: Pneumococcal vaccine NOT administered or previously given Measure #47: Advance Care Plan: Advance care planning discussed & documented, pt chose/unable to give Measure #412: Opioid Treatment Agreement: Documented signed opioid trtmnt agreemnt min once during opioid trtmnt Measure #408: Opioid Therapy Follow-up Evaluation: Patient had f/u eval minimum every 3 months during opioid therapy Measure #317: Preventitive Care & Scrn High Bld Press & F/U: Pre-hypertensive or hypertensive BP documented, pt will f/u with PCP Measure #128: Body Mass Index (BMI) Screening & Follow-up: BMI documented ABOVE normal parameters - f/u documented Measure #131: Pain Assessment & Follow-up: Pain positive & plan documented, Follow-up scheduled Measure #431: Unhealthy Alcohol Use Preventative Care & Scrn: Patient not identified as an unhealthy alcohol user PQRS Narrative: Smoking Status Current every day smoker Narcotic Agreement Date Signed 07/06/19 Blood Pressure 149/63 Pain Intensity [Back] 9 Scale Used Numeric (1 - 10) Hx Alcohol Use (MH) No Home Medications: Ambulatory Orders Albuterol Inhaler [Ventolin Hfa Inhaler] 1 - 2 puff INHALATION Q6HR PRN 09/12/15 Beclomethasone Dipropionate [Qvar 40 mcg] 2 puff INHALATION DAILY PRN 09/28/16 Loratadine [Claritin] 10 mg PO DAILY 11/03/16 Montelukast Sodium [Singulair] 10 mg PO HS 11/03/16 Propranolol [Inderal] 60 mg PO BID 11/03/16 Naproxen 500 mg PO BID 06/28/19 Doxycycline [Vibramycin] 100 mg PO BID 10/24/19 Lisinopril [Zestril] 20 mg PO HS 10/24/19 metFORMIN HCL [Glucophage] 500 mg PO DAILY 10/24/19 HYDROcodone/APAP 5-325MG [[place] 5-325] 1 tab PO Q8HR PRN 10/26/19 Controlled Substance Measures - Controlled Substance Measures Is patient prescribed a controlled substance at discharge?: Yes When asked, does pt state using other controlled substances?: No If prescribed controlled substance>3 days was MAPS reviewed?: Yes If Rx opioid, was Start Talking consent form obtained?: Yes If opioid is for acute pain is fill amount 7 days or less?: No Was information provided regarding opioid addiction?: Yes
[2019-10-26 12:52] VITALS: BP 149/63; PULSE 61; RESP 20
== END | disposition home or self-care (01) ==
LOC: PNWHC3 11:54
PROVIDERS: ATTEND Specialist
DX: G89.29 Other chronic pain (principal); M47.816 Spondylosis without myelopathy or radiculopathy, lumbar region; F17.200 Nicotine dependence, unspecified, uncomplicated; Z98.890 Other specified postprocedural states; Z79.84 Long term (current) use of oral hypoglycemic drugs; Z79.899 Other long term (current) drug therapy
CPT/HCPCS: 99211

== ENCOUNTER → 2019-12-29 | Outpatient (CLI) | payer OTHER ==
--- NOTE | 2019-12-29 10:13 | P.PAINPG ---
Subjective Progress Note Date: 12/29/19 THIS ENCOUNTER WAS PERFORMED A TELEMEDICINE VISIT VIA SECURE TWO-WAY VIDEO AND AUDIO TO MINIMIZE RISK AND TRANSMISSION OF COVID-19. This is a 44-year-old female with history of chronic lower back pain with no radiation to the lower extremities, diagnosed with lumbar spondylosis. The patient has been on oral opioids and interventional pain procedures to control her pain. The patient's primary complaint today is low back pain, she denies radiation, she denies numbness, tingling, weakness, bowel bladder dysfunction. Pain is rated as 6-7/10, described as stabbing, constant Pain is worse with walking, and better with medications. She continues to do low back exercises. in the past, we have done radiofrequency ablation of the lumbar areaL3, L4, L5, right side done in January 2019, left side done in February 2019. Patient reports greater than 50% benefit from these procedures , lasting 6 months. She would like to be scheduled for repeat procedure. she continues to take [place] 5 mg up to 3 times a day, She does not experience any side effects from medications, and they are helping her function. Review of systems is negative for chest pain, new onset weakness, numbness/tingling, abdominal pain, malaise, fever, night sweats, chills, homicidal or suicidal ideation, or bowel or bladder incontinence. Today, pt denies new-onset weakness, bowel/bladder incontinence, or any other signs or symptoms of cauda equina syndrome. There are no signs of acute intoxica tion, and no indications of medication diversion or overuse. Physical exam : Constitutional: Healthy appearing, well developed, alert, in no acute distress Psychiatric: Judgement and insight intact, alert and oriented Mood and Affect: mood normal, affect appropriate Head and Face: Inspection: normocephalic atraumatic, extraocular movement intact Respiratory: Breathing non-labored nondyspneic Cardiovascular: no cyanosis, clubbing, or edema observed Skin: Head and Neck: skin with no lesions of rash Gait: Able to walk without assistive device Imaging: no new imaging Assessment: Lumbar spondylosis without myelopathy Right greater trochanter bursitis Right knee joint degeneration Morbid obesity Opioid dependence Tobacco use Plan: 1. Explanation: patient will like to be scheduled to have lumbar radiofrequency ablation, we will plan on doing this when the clinic reopens for elective procedures. 2. Opioid agreement: Signed with the patient and the patient is warned not to use opioids while driving or before driving and not to combine opioids with benzodiazepines or alcohol. 3. Counseling: She was also counseled on the importance of weight loss and low back exercises. 4. Procedures: when we are able to schedule, we will schedule the patient for lumbar radiofrequency ablationL3, L4, L5 for facets L4-5 and L5-S1, we will start with the right side. 5. Consultations: None currently 6. Investigations: None 7. Medications:[place] prescription 5 mg #90, with 1 refill given. We will plan on continuing to gradually wean narcotics. 8. Disposition: for procedure and in 8 weeks for medication refill 9. Maps were reviewed and were appropriate. PQRS Measure Charge Sheet PQRS Narrative: Smoking Status Current every day smoker Narcotic Agreement Date Signed 07/06/19 Hx Alcohol Use (MH) No Home Medications: Ambulatory Orders Albuterol Inhaler (Mhu) [Ventolin Hfa Inhaler] 1 - 2 puff INHALATION Q6HR PRN 09/12/15 Beclomethasone Dipropionate [Qvar 40 mcg] 2 puff INHALATION DAILY PRN 09/28/16 Loratadine [Claritin] 10 mg PO DAILY 11/03/16 Montelukast Sodium [Singulair] 10 mg PO HS 11/03/16 Propranolol [Inderal] 60 mg PO BID 11/03/16 Naproxen 500 mg PO BID 06/28/19 Doxycycline [Vibramycin] 100 mg PO BID 10/24/19 Lisinopril [Zestril] 20 mg PO HS 10/24/19 metFORMIN HCL [Glucophage] 500 mg PO DAILY 10/24/19 HYDROcodone/APAP 5-325MG [[place] 5-325] 1 tab PO Q8HR PRN 30 Days #90 tab 10/26/19 HYDROcodone/APAP 5-325MG [[place] 5-325] 1 tab PO Q8HR PRN #90 tab 11/27/19 Controlled Substance Measures - Controlled Substance Measures Is patient prescribed a controlled substance at discharge?: Yes When asked, does pt state using other controlled substances?: No If prescribed controlled substance>3 days was MAPS reviewed?: Yes If Rx opioid, was Start Talking consent form obtained?: Yes If opioid is for acute pain is fill amount 7 days or less?: No Was information provided regarding opioid addiction?: Yes
== END | disposition home or self-care (01) ==
LOC: PNWHC3 07:20
PROVIDERS: ATTEND Anesthesiology
DX: Z53.9 Procedure and treatment not carried out, unspecified reason (principal)

== ENCOUNTER → 2020-01-19 | Outpatient (CLI) | payer OTHER | END | disposition home or self-care (01) | LOC: LABWHC1 11:13 | PROVIDERS: ATTEND Nurse Practitioner | DX: Z11.59 Encounter for screening for other viral diseases (principal) ==

== ENCOUNTER 2020-01-23 10:35 | Day surgery (SDC) | payer OTHER ==
[2020-01-22 10:40] VITALS: BMI 49.7
[2020-01-23 10:58] VITALS: TEMP 97.1
[2020-01-23 10:59] LABS: Glucose,Whole Blood 142 mg/dL (75-99)
[2020-01-23] MEDS ORDERED: BUPIVACAINE (PF) 0.5% 30 ML VIAL ONE (10:59)
[2020-01-23] MEDS ORDERED: LIDOCAINE 1% INJ 10MG/ML (20 ML MDV) ONE (10:59)
[2020-01-23] MEDS ORDERED: MIDAZOLAM 2 MG/2 ML VIAL ONE (10:59)
[2020-01-23] MEDS ORDERED: fentaNYL (PF) 50 MCG/ML 2 ML AMP ONE (10:59)
[2020-01-23] MEDS ORDERED: IV FLUID CONTINUATION 650 ML IV ONE (11:25)
--- NOTE | 2020-01-23 11:48 | FL ---
Fluoroscopy INDICATION: Pain FINDINGS: Fluoroscopy time: 6 seconds. Images obtained: 3. IMPRESSIONS: 1. Documentation of fluoroscopy.
[2020-01-23 11:50] VITALS: BP 128/76; PULSE 67; RESP 18
--- NOTE | 2020-01-26 11:59 | P.PCN ---
Date of Procedure: 01/23/20 Description of Procedure: PREOPERATIVE DIAGNOSIS: Lumbar Facet Arthropathy without myelopathy POSTOPERATIVE DIAGNOSIS: Same PROCEDURES: RIGHT Radiofrequency thermocoagulation of L3-4, L4-5, L5-S1 medial branches, with fluoroscopic guidance, images were saved. ANESTHESIA: IV sedation with versed and fentanyl and local infiltration with lidocaine 1% 10 ml Imaging: Fluoroscopy was used, images where saved to the medical record PROCEDURE INDICATION: The patient with low back pain secondary to lumbar facet arthropathy who had more than 50% relief of pain with previous diagnostic lumbar medial branch block with local anesthetic. PROCEDURE DESCRIPTION / TECHNIQUE: The patient was seen and identified in the preoperative area. Risks, benefits, complications, including but not limited to risk of infection, bleeding, allergic reactions to the medications and no complete pain relief, and alternatives were discussed with the patient, the patient agreed to proceed with the procedure and signed the consent. IV was started. Vital signs remained stable throughout the procedure. Patient was taken to the OR and time out was completed. The patient was placed in the prone position on the procedure table. The lumber area was prepped and draped in the usual sterile fashion. Vital signs were closely monitored during the procedure. IV sedation was used during the procedure to decrease patient anxiety. Using AP and then oblique fluoroscopy, the eye of the Steve dog corresponding to the connection between the superior and transverse articular processes of L4, L5, and sacral Ala were identified, marked, and localized with 1% lidocaine. Subsequently, a 20 -hq radiofrequency cannula with a 10-mm active tip was advanced guided by fluoroscopy to the junction of the pedicle and transverse process of each identified level. Each site then underwent sensory testing at 50 Hz and 0 to 1 volt and motor testing at 2.5 Hz and 0 to 3 volt with local stimulation, no radicular symptoms sensed by the patient and no obvious motor stimulation noted. Thereafter the tested sites underwent radiofrequency thermocoagulation at 80 degrees celsius for 90 seconds after injecting 1 ml of PF lidocaine 1%. Then after the thermocoagulation was done, 1 ml of the block solution containing ropivaciane 0.5% was injected at the lesioned sites after negative aspiration of CSF and blood and with no paresthesias. Cannulas were retracted. At the end of the procedure, the skin was cleansed and bandages were applied. COMPLICATIONS: No acute complications. DISPOSITION / PLANS: The patient was placed in a supine position and transferred to the recovery area in a stable condition for observation and was discharged from the recovery room after meeting discharge criteria. Home discharge instructions given to the patient by the staff. The patient was reexamined prior to discharge. Patient will follow up as directed.
== END 2020-01-23 12:05 | disposition home or self-care (01) ==
LOC: ORPAIN 10:35
PROVIDERS: ATTEND Hospitalist
DX: M47.896 Other spondylosis, lumbar region (principal); E11.9 Type 2 diabetes mellitus without complications
CPT/HCPCS: 81025; 64635; 64636; J2250; J2001; J3010; 99152

== ENCOUNTER → 2020-02-20 | Day surgery (SDC) | payer OTHER ==
[2020-02-19 10:52] VITALS: BMI 48.4
== END ==
LOC: ORPAIN 09:34
PROVIDERS: ATTEND Anesthesiology
DX: M54.5 Low back pain (principal); Z53.8 Procedure and treatment not carried out for other reasons

== ENCOUNTER → 2020-02-22 | Outpatient (CLI) | payer OTHER ==
[2020-02-22 12:19] VITALS: BP 112/80; PULSE 65; RESP 16
--- NOTE | 2020-02-22 12:50 | P.PAINPG ---
Subjective Progress Note Date: 02/22/20 This is a 44-year-old female with history of chronic lower back pain with radiation to the lower extremities, diagnosed with lumbar spondylosis, lumbar degenerative disc disease. The patient has been on oral opioids and interventional pain procedures to control her pain. She recently underwent right lumbar radiofrequency ablation on 02/10/2020. She returns today for follow-up. The patient's primary complaint today is low back pain, with radiation to posterior thigh, she also has bilateral knee pain, she denies numbness, tingling, weakness, bowel bladder dysfunction. Pain is rated as 9/10, described as stabbing, constant Pain is worse with walking, and better with medications. She continues to do low back exercises. He is also trying to lose weight, she has lost about 10 pounds in 1 month.. She is scheduled to undergo left lumbar radiofrequency ablation in the next few weeks. she continues to take [place] 5 mg up to 3 times a day, She does not experience any side effects from medications, and they are helping her function. She was prescribed Flexeril at last visit, she states that this is not helping, we will stop it Review of systems is negative for chest pain, new onset weakness, numbness/tingling, abdominal pain, malaise, fever, night sweats, chills, homicidal or suicidal ideation, or bowel or bladder incontinence. Today, pt denies new-onset weakness, bowel/bladder incontinence, or any other signs or symptoms of cauda equina syndrome. There are no signs of acute intoxic ation, and no indications of medication diversion or overuse. Physical exam : Physical exam: Vitals: Reviewed in EMR GENERAL: Well appearing, in no acute distress PSYCH: Mood and affect is appropriate. Awake, alert, and oriented SKIN: Skin color, texture, turgor normal, no rashes or lesions HEENT: Normocephalic, atraumatic. EOM intact CV: No pedal edema RESP: Respirations are unlabored, no audible wheezing GI: Abdomen non-distended MUSCULOSKELETAL: Bilateral lower extremity strength is normal and symmetric. No atrophy or tone abnormalities are noted. Lumbar spine: Straight leg raising in the sitting position is negative for radicular pain. Tenderness to palpation over the lumbar spine and paraspinous muscles. Positive for pain with facet loading and back extension/rotation. Buttocks: No pain to palpation over the PSIS, sacroiliac joint maneuvers are negative for pain. Extremities: Peripheral joint ROM is full and pain free without obvious instability or laxity in all four extremities. No edema or skin discolorations noted. NEUR: Bilateral lower extremity coordination and muscle stretch reflexes are physiologic and symmetric. Negative clonus bilaterally. No loss of sensation is noted. Imaging: no new imaging Assessment: Lumbar spondylosis without myelopathy Right greater trochanter bursitis Right knee joint degeneration Morbid obesity Opioid dependence Tobacco use Plan: 1. Explanation: patient will be scheduled to have lumbar radiofrequency ablation 2. Opioid agreement: Signed with the patient and the patient is warned not to use opioids while driving or before driving and not to combine opioids with benzodiazepines or alcohol. 3. Counseling: She was counseled for 3 minutes on the importance of weight loss and smoking cessation. She currently smokes about 3 cigarettes a day. She is working on quitting. 4. Procedures: lumbar radiofrequency ablationL3, L4, L5 for facets L4-5 and L5-S1, left side is scheduled, right-sided completed 5. Consultations: None currently 6. Investigations: Urine drug screen sent today 7. Medications:[place] prescription 5 mg #90, with 1 refill given. We will plan on continuing to gradually wean narcotics. We stopped Flexeril today, she did not experience any benefit 8. Disposition: for procedure and in 8 weeks for medication refill 9. Maps were reviewed and were appropriate. PQRS Measure Charge Sheet Measure #130: Documentation of Current Meds in Medical Chart: Patient's medications documented in chart Measure #226: Tobacco Use: Screen & Cessation Intervention: Pt screened for tobacco use AND intervention given Measure #111: Pneumonia Vaccination: Pneumococcal vaccine NOT administered or previously given Measure #47: Advance Care Plan: Advance care planning discussed & documented, pt chose/unable to give Measure #412: Opioid Treatment Agreement: Documented signed opioid trtmnt agreemnt min once during opioid trtmnt Measure #408: Opioid Therapy Follow-up Evaluation: Patient had f/u eval minimum every 3 months during opioid therapy Measure #317: Preventitive Care & Scrn High Bld Press & F/U: Normal blood pressure, f/u not required Measure #128: Body Mass Index (BMI) Screening & Follow-up: BMI documented ABOVE normal parameters - f/u documented Measure #131: Pain Assessment & Follow-up: Pain positive & plan documented, Follow-up scheduled Measure #431: Unhealthy Alcohol Use Preventative Care & Scrn: Patient not identified as an unhealthy alcohol user PQRS Narrative: Smoking Status Current every day smoker Narcotic Agreement Date Signed 07/06/19 Pain Intensity [Lower Back] 9 Scale Used Numeric (1 - 10) Hx Alcohol Use (MH) No Home Medications: Ambulatory Orders Loratadine [Claritin] 10 mg PO DAILY 11/03/16 Montelukast Sodium [Singulair] 10 mg PO HS 11/03/16 Propranolol [Inderal] 60 mg PO BID 11/03/16 Naproxen 500 mg PO BID 06/28/19 Lisinopril [Zestril] 20 mg PO HS 10/24/19 metFORMIN HCL [Glucophage] 500 mg PO DAILY 10/24/19 HYDROcodone/APAP 5-325MG [[place] 5-325] 1 tab PO Q8HR PRN 30 Days #90 tab HYDROcodone/APAP 5-325MG [[place] 5-325] 1 tab PO Q8HR PRN 30 Days #90 tab 02/22/20 Controlled Substance Measures - Controlled Substance Measures Is patient prescribed a controlled substance at discharge?: Yes When asked, does pt state using other controlled substances?: No If prescribed controlled substance>3 days was MAPS reviewed?: Yes If Rx opioid, was Start Talking consent form obtained?: Yes If opioid is for acute pain is fill amount 7 days or less?: No Was information provided regarding opioid addiction?: Yes
== END | disposition home or self-care (01) ==
LOC: PNWHC3 12:01
PROVIDERS: ATTEND Anesthesiology
DX: M47.816 Spondylosis without myelopathy or radiculopathy, lumbar region (principal); Z72.0 Tobacco use; E66.01 Morbid (severe) obesity due to excess calories; M70.61 Trochanteric bursitis, right hip; M17.11 Unilateral primary osteoarthritis, right knee; F11.20 Opioid dependence, uncomplicated; Z87.891 Personal history of nicotine dependence; Z79.891 Long term (current) use of opiate analgesic; Z79.899 Other long term (current) drug therapy; Z79.84 Long term (current) use of oral hypoglycemic drugs
CPT/HCPCS: 80307; G0482; G0463; 99211

== ENCOUNTER 2020-03-05 08:45 | Day surgery (SDC) | payer OTHER ==
[2020-03-01 15:38] VITALS: BMI 48.4
[2020-03-05 09:13] LABS: Glucose,Whole Blood 159 mg/dL (75-99)
[2020-03-05] MEDS ORDERED: methylPREDNISolone ACETATE 40 MG/ML 1 ML VIAL ONE (09:30)
[2020-03-05] MEDS ORDERED: ROPIVACAINE 5MG/ML 20ML VIAL ONE (09:30)
[2020-03-05] MEDS ORDERED: MIDAZOLAM 2 MG/2 ML VIAL ONE (09:30)
[2020-03-05] MEDS ORDERED: fentaNYL (PF) 50 MCG/ML 2 ML AMP ONE (09:30)
--- NOTE | 2020-03-05 09:55 | P.PCN ---
Date of Procedure: 03/05/20 Procedure(s) Performed: PREOPERATIVE DIAGNOSIS: 1-Lumbar Spondylosis with Facet Arthropathy without myelopathy. POSTOPERATIVE DIAGNOSIS: 1- Lumbar Spondylosis with Facet Arthropathy without myelopathy. PROCEDURES : Left Radiofrequency thermocoagulation, L3 , L4 , and L5 medial branch, with fluoroscopic guidance (fluoroscopy images available in the radiology department) ( to denervate the facet joint at left L4-5 ,and L5-S1 levels ). ANESTHESIA: Moderate sedation with intravenous versed 2 mg and fentaneyl 50 mcg, and local infiltration with Ropivacaine 0.5 % . EBL: Minimal PROCEDURE INDICATION: The patient with low back pain secondary to lumbar facet arthropathy who had more than 50% relief of her pain with previous diagnostic lumbar medial branch block with bupivacaine. PROCEDURE DESCRIPTION / TECHNIQUE: The patient was seen and identified in the preoperative area. Risks, benefits, complications, including but not limited to risk of infection ,bleeding , allergic reactions to the medications and no complete pain releife , and alternatives were discussed with the patient, the patient agreed to proceed with the procedure and signed the consent. IV was started. Vital signs remained stable throughout the procedure. Patient was taken to the OR and time out was completed. The patient was placed in the prone position on the procedure table. The lumber area was prepped and draped in the usual sterile fashion. . Vital signs were closely monitored during the procedure .IV sedation was used during the procedure to decrease patients anxiety. Using AP and then oblique fluoroscopy, the ``eye of the Steve dog corresponding to the connection between the superior and transverse articular processes of left L3, L4, and L5 were identified, marked, and localized with 1% lidocaine. Subsequently, a [id number] radiofrequency cannula with a 10-mm active tip was advanced guided by fluoroscopy to each of the``eyes of the Steve dog at left L3, L4, and L5. Each site then underwent sensory testing at 50 Hz and 0 to 1 volt and motor testing at 2.5 Hz and 0 to 3 volt with local stimulation, but no radicular symptoms down the legs. Thereafter each sites underwent radiofrequency thermocoagulation at 80 degrees celsius for 90 seconds after injecting 0.5 ml of PF Ropivacaine 1ml, then after the thermocoagulation done , 1 ml of the block solution containing Depo-Medrol 40 mg and 3 ml of Ropivacaine 0.5% was injected at the left L3 , L4 , and L5 , levels after negative aspiration of CSF and blood and with no paresthesias. Cannulas were retracted while injecting lidocaine 1% until the needle is out. At the end of the procedure, the skin was cleansed and bandages were applied. COMPLICATIONS: No acute complications. DISPOSITION / PLANS: The patient was placed in a supine position and transferred to the recovery area in a stable condition for observation and was discharged from the recovery room after meeting discharge criteria. Home discharge instructions given to the patient by the staff. The patient was reex amined prior to discharge. The patient will schedule a follow up in the clinic in 2-4 weeks.
[2020-03-05] MEDS ORDERED: IV FLUID CONTINUATION 1,000 ML IV ONE ×2 (10:00)
[2020-03-05 10:09] VITALS: RESP 18
--- NOTE | 2020-03-05 10:09 | FL ---
Fluoroscopy HISTORY: Pain 8 seconds fluoroscopy time supplied to the referring clinician. 3 intraoperative C-arm images docume nt the procedure. See dictated report from anesthesia.
[2020-03-05 10:21] VITALS: BP 136/63; PULSE 57
== END 2020-03-05 10:38 | disposition home or self-care (01) ==
LOC: ORPAIN 08:45
PROVIDERS: ATTEND Specialist
DX: M47.816 Spondylosis without myelopathy or radiculopathy, lumbar region (principal); E11.9 Type 2 diabetes mellitus without complications
CPT/HCPCS: 64635; 64636; J2250; J1030; J3010; 99152

== ENCOUNTER → 2020-03-27 | Outpatient (CLI) | payer OTHER ==
[2020-03-27 11:49] VITALS: BP 123/73; PULSE 58; RESP 16; TEMP 97.9
--- NOTE | 2020-03-27 13:04 | P.PAINPG ---
Subjective This is a 44-year-old female with history of chronic lower back pain with radiation to the lower extremities, diagnosed with lumbar spondylosis, lumbar degenerative disc disease. The patient has been on oral opioids and interventional pain procedures to control her pain. She recently underwent left lumbar RFA on 03/04/2020 and right lumbar radiofrequency ablation on 02/10/2020. She returns today for follow-up. patient reports that she had around 40% relief from the lumbar radiofrequency ablations. The patient's primary complaint today is low back pain, with radiation to posterior thigh, she also has bilateral knee pain, she denies numbness, tingling, weakness, bowel bladder dysfunction. Pain is rated as 9/10, described as stabbing, constant Pain is worse with walking, and better with medications. She continues to do low back exercises. He is also trying to lose weight, she has lost about 10 pounds in 1 month.. she continues to take [place] 5 mg up to 3 times a day, her last urinary drug screen in February 2020 was negative for these medications. She does not experience any side effects from medications, and they are helping her function. S Review of systems is negative for chest pain, new onset weakness, numbness/tingling, abdominal pain, malaise, fever, night sweats, chills, homicidal or suicidal ideation, or bowel or bladder incontinence. Today, pt denies new-onset weakness, bowel/bladder incontinence, or any other signs or symptoms of cauda equina syndrome. There are no signs of acute intoxication, and no indications of medication diversion or overuse. Physical exam : Physical exam: Vitals: Reviewed in EMR GENERAL: Well appearing, in no acute distress PSYCH: Mood and affect is appropriate. Awake, alert, and oriented SKIN: Skin color, texture, turgor normal, no rashes or lesions HEENT: Normocephalic, atraumatic. EOM intact CV: No pedal edema RESP: Respirations are unlabored, no audible wheezing GI: Abdomen non-distended MUSCULOSKELETAL: Bilateral lower extremity strength is normal and symmetric. No atrophy or tone abnormalities are noted. Lumbar spine: Straight leg raising in the sitting position is negative for radicular pain. Tenderness to palpation over the lumbar spine and paraspinous muscles. Positive for pain with facet loading and back extension/rotation. Buttocks: No pain to palpation over the PSIS, sacroiliac joint maneuvers are negative for pain. Extremities: Peripheral joint ROM is full and pain free without obvious instability or laxity in all four extremities. No edema or skin discolorations noted. NEUR: Bilateral lower extremity coordination and muscle stretch reflexes are physiologic and symmetric. Negative clonus bilaterally. No loss of sensation is noted. Imaging: no new imaging Assessment: Lumbar spondylosis without myelopathy Right greater trochanter bursitis Right knee joint degeneration Morbid obesity Opioid dependence Tobacco use Plan: 1. Explanation: patient will be sent for UDS today 2. Opioid agreement: Signed with the patient and the patient is warned not to use opioids while driving or before driving and not to combine opioids with benzodiazepines or alcohol. 3. Counseling: She was counseled for 3 minutes on the importance of weight loss and smoking cessation. She currently smokes about 3 cigarettes a day. She is working on quitting. 4. Procedures: None as of now 5. Consultations: None currently 6. Investigations: Urine drug screen sent today 7. Medications:[place] prescription 5 mg #90, with 1 refill given. We will plan on continuing to gradually wean narcotics. 8. Disposition: for procedure and in 8 weeks for medication refill pending UDS 9. Maps were reviewed and were appropriate. PQRS Measure Charge Sheet Measure #226: Tobacco Use: Screen & Cessation Intervention: Pt screened for tobacco use AND intervention given Measure #111: Pneumonia Vaccination: Pneumococcal vaccine NOT administered or previously given Measure #47: Advance Care Plan: Advance care planning discussed & documented, pt chose/unable to give Measure #412: Opioid Treatment Agreement: Documented signed opioid trtmnt agreemnt min once during opioid trtmnt Measure #408: Opioid Therapy Follow-up Evaluation: Patient had f/u eval minimum every 3 months during opioid therapy Measure #317: Preventitive Care & Scrn High Bld Press & F/U: Normal blood pressure, f/u not required Measure #128: Body Mass Index (BMI) Screening & Follow-up: BMI documented ABOVE normal parameters - f/u documented Measure #131: Pain Assessment & Follow-up: Pain positive & plan documented Measure #431: Unhealthy Alcohol Use Preventative Care & Scrn: Patient not identified as an unhealthy alcohol user PQRS Narrative: Smoking Status Current every day smoker Narcotic Agreement Date Signed 02/22/20 Pain Intensity [Lower Back] 6 Scale Used Numeric (1 - 10) Hx Alcohol Use (MH) No Home Medications: Ambulatory Orders Loratadine [Claritin] 10 mg PO DAILY 11/03/16 Montelukast Sodium [Singulair] 10 mg PO HS 11/03/16 Propranolol [Inderal] 60 mg PO BID 11/03/16 Naproxen 500 mg PO BID 06/28/19 lisinopriL [Zestril] 20 mg PO HS 10/24/19 metFORMIN HCL [Glucophage] 500 mg PO DAILY 10/24/19 HYDROcodone/APAP 5-325MG [[place] 5-325] 1 tab PO Q8HR PRN 30 Days #90 tab 02/22/20 Controlled Substance Measures - Controlled Substance Measures Is patient prescribed a controlled substance at discharge?: Yes When asked, does pt state using other controlled substances?: No If prescribed controlled substance>3 days was MAPS reviewed?: Yes If Rx opioid, was Start Talking consent form obtained?: No If opioid is for acute pain is fill amount 7 days or less?: No Was information provided regarding opioid addiction?: No
== END | disposition home or self-care (01) ==
LOC: PNWHC3 11:21
PROVIDERS: ATTEND Anesthesiology
DX: G89.29 Other chronic pain (principal); M51.36 Other intervertebral disc degeneration, lumbar region; M47.816 Spondylosis without myelopathy or radiculopathy, lumbar region; M70.61 Trochanteric bursitis, right hip; M17.11 Unilateral primary osteoarthritis, right knee; E66.01 Morbid (severe) obesity due to excess calories; F11.20 Opioid dependence, uncomplicated; F17.200 Nicotine dependence, unspecified, uncomplicated; Z68.42 Body mass index [BMI] 45.0-49.9, adult; Z98.890 Other specified postprocedural states; Z79.1 Long term (current) use of non-steroidal anti-inflammatories (NSAID); Z79.84 Long term (current) use of oral hypoglycemic drugs; Z79.899 Other long term (current) drug therapy
CPT/HCPCS: 80307; G0482; G0463; 99211

== ENCOUNTER → 2020-04-17 | Outpatient (CLI) | payer OTHER ==
[2020-04-17 11:05] VITALS: BP 130/77; PULSE 59; RESP 18; TEMP 98.6
--- NOTE | 2020-04-17 12:00 | P.PAINPG ---
Subjective Progress Note Date: 04/17/20 This is follow up visit for this 44 year-old female with history of chronic lower back pain . The pain controlled between the interventional pain management and oral pain medications, previously we have done radiofrequency ablation of the medial branch lumbar area. Currently she is on [place] 5/325 every 8 hours, She does not experience any side effects from medications, and the medication helping her to do activity of daily livings. She is complaining of severe localized pain mainly on the left side low back area, she denies any motor or sensory deficit she denies any fever or night sweats Review of systems is negative for chest pain, shortness of breath, new onset weakness, numbness/tingling, abdominal pain, malaise, fever, night sweats, chills, homicidal or suicidal ideation, or bowel or bladder incontinence. Objective - Vital Signs Vital signs: Vital Signs Temp 98.6 F 04/17/20 10:51 Pulse 59 L 04/17/20 10:51 Resp 18 04/17/20 10:51 BP 130/77 04/17/20 10:51 Pulse Ox 97 04/17/20 10:51 Intake & Output 04/16/20 04/17/20 04/17/20 18:59 06:59 18:59 Weight 120.202 kg - Exam Physical Examinations : -Constitutiona : Cooperative , not in acute distress . -HEENT : nech : supple , no Lymphadenopathy , normal thyroid size . : eyes : no ptosis , no icterus, no photophobia . - neurologic : Cranial nerve II to XII intact , no focal neurological deffecit . -psychatric : alert , oriented X 3 , appropriate affect , intact judgment and insight . -Lymphatic : no Lymphadenopathy . - musculoskeltal : Lumber spine moter stegnth lower extremities ,thigh and legs 5/5 Right side , 5/5 Left side deep tendon reflexes : normal Knee Jerk , normal ankle Jerk lumber facet Loading Test =positive Right , positive Left Range of motion of the lumbar spine Flexion 30 degrees, extension 10 degrees strait leg raising test = positive at degree Fabere test= positive Right , and positive LT . Positive trigger point left side lumbar paraspinal muscles Assessment and Plan Plan: chronic low back pain secondary to lumbar spondylosis with lumbar facet arthropathy . Myofascial pain syndrome left side lumbar paraspinal muscles chronic and current use of high-risk medication (opioids) Patient denies any side effects of the current pain medication and the current treatment/medication helping the patient to do activity of daily living , Diagnoses, prognosis, treatment options, including but not limited to physical therapy, medication management, interventional therapies, and surgery, were discussed with the patient All the questions answered The narcotic consent was signed and patient agreed and understood the side effects and complications of opioid treatment. Patient signed the narcotic agreement, and was orally counseled, not to overuse, not to abuse, not to Divert , not tp sell pain medication, and to take it as prescribed only, Patient was counseled not to drive or operate heavy equipment while using narcotic medication, and advised not to use alcohol or any Illicit drugs while using the narcotis. understanding that lack of compliance with any of the above instructions, will likely to cause discharge from, the pain service, not to renew his narcotic prescriptions MAPS Reviwed and it was apropriate .UDS done on 03/27/2020 reviewed and it was appropriate Medication managements= patient will be given prescription refills for [place] 5/325 every 8 hours dispense 90 with 1 refill. Interventions= patient could benefit from trigger point injection left lumbar paraspinal muscles Time with Patient: Less than 30 PQRS Measure Charge Sheet Measure #130: Documentation of Current Meds in Medical Chart: Patient's medications documented in chart Measure #226: Tobacco Use: Screen & Cessation Intervention: Pt screened for tobacco use AND intervention given Measure #111: Pneumonia Vaccination: Pneumococcal vaccine NOT administered or previously given Measure #47: Advance Care Plan: Advance care planning discussed & documented, pt chose/unable to give Measure #412: Opioid Treatment Agreement: Documented signed opioid trtmnt agreemnt min once during opioid trtmnt Measure #408: Opioid Therapy Follow-up Evaluation: Patient had f/u eval minimum every 3 months during opioid therapy Measure #317: Preventitive Care & Scrn High Bld Press & F/U: Normal blood pressure, f/u not required Measure #128: Body Mass Index (BMI) Screening & Follow-up: BMI documented ABOVE normal parameters - f/u documented Measure #131: Pain Assessment & Follow-up: Pain positive & plan documented, Follow-up scheduled Measure #431: Unhealthy Alcohol Use Preventative Care & Scrn: Patient not identified as an unhealthy alcohol user PQRS Narrative: Smoking Status Current every day smoker Narcotic Agreement Date Signed 02/22/20 Blood Pressure 130/77 Pain Intensity [Lower Back] 6 Scale Used Numeric (1 - 10) Hx Alcohol Use (MH) No Home Medications: Ambulatory Orders Loratadine [Claritin] 10 mg PO DAILY 11/03/16 Montelukast Sodium [Singulair] 10 mg PO HS 11/03/16 Propranolol [Inderal] 60 mg PO BID 11/03/16 Naproxen 500 mg PO BID 06/28/19 lisinopriL [Zestril] 20 mg PO HS 10/24/19 metFORMIN HCL [Glucophage] 500 mg PO DAILY 10/24/19 Escitalopram [Lexapro] 10 mg PO DAILY 04/16/20 HYDROcodone/APAP 5-325MG [[place] 5-325] 1 tab PO Q8HR PRN 30 Days #90 tab 04/17/20 HYDROcodone/APAP 5-325MG [[place] 5-325] 1 tab PO Q8HR PRN 30 Days #90 tab 04/17/20 Controlled Substance Measures - Controlled Substance Measures Is patient prescribed a controlled substance at discharge?: Yes
== END | disposition home or self-care (01) ==
LOC: PNWHC3 10:28
PROVIDERS: ATTEND Specialist
DX: M47.816 Spondylosis without myelopathy or radiculopathy, lumbar region (principal); M46.96 Unspecified inflammatory spondylopathy, lumbar region; M79.18 Myalgia, other site; G89.29 Other chronic pain; F17.200 Nicotine dependence, unspecified, uncomplicated; Z79.891 Long term (current) use of opiate analgesic; Z79.899 Other long term (current) drug therapy; Z79.84 Long term (current) use of oral hypoglycemic drugs
CPT/HCPCS: 99211

== ENCOUNTER 2020-04-30 11:04 | Day surgery (SDC) | payer OTHER ==
[2020-04-24 15:53] VITALS: BMI 48.4
[2020-04-30 11:13] VITALS: TEMP 97.7
[2020-04-30 11:25] LABS: Glucose,Whole Blood 138 mg/dL (75-99)
[2020-04-30] MEDS ORDERED: LIDOCAINE 1% (10MG/ML) FOR IV START INTRADERMA ONE (11:26)
[2020-04-30] MEDS ORDERED: methylPREDNISolone ACETATE 40 MG/ML 1 ML VIAL ONE (12:16)
[2020-04-30] MEDS ORDERED: ROPIVACAINE 5MG/ML 20ML VIAL ONE (12:16)
[2020-04-30] MEDS ORDERED: IV FLUID CONTINUATION 1,000 ML IV ONE (12:27)
--- NOTE | 2020-04-30 12:28 | P.PCN ---
Date of Procedure: 04/30/20 Procedure(s) Performed: Procedure= trigger point injections left-sided lumbar paraspinal muscles total of 3 trigger point injected on the left side lumbar paraspinal muscles Preoperative diagnosis= 1-myofascial pain syndrome lumbar paraspinal muscles 2- lumbar spondylosis with lumbar facet arthropathy Postoperative diagnosis=Same as preop Diagnosis . Complication = none Condition= stable Anesthesia=none Indication for the procedure= patient complaining of low back pain , examination was positive for severe tenderness over the left side lumbar paraspinal muscles and multiple trigger point identified in the left side lumbar paraspinal muscles, for this is and she was good candidate to have trigger point injections Description of the procedure= procedure risk and benefits discussed with the patient, including but not limited, risk of infection and bleeding, and ALLERGIC reaction to the medication and not complete pain relief and patient agreed with the preceding patient taken to the operating room, placed in sitting position or standard monitors applied to the patient then back prepped with chlorhexidine 3 times , Then under strict sterile technique, each of the trigger point that is identified in the left side lumbar paraspinal muscle each one of them injected with ropivacaine 0.5% 3 mL, using 25-gauge needle, injection done after negative aspiration under was no paresthesia during the injection, total of 9 ml of ropivacaine mixed with 40 mg of Depo-Medrol mixed with her and 3 mL of the mixture used at each trigger point, patient tolerated the procedure well without any complication. She will follow up in the pain clinic in a few weeks
[2020-04-30 12:30] VITALS: RESP 16
[2020-04-30 12:42] VITALS: BP 122/73; PULSE 61
== END 2020-04-30 12:53 ==
LOC: ORPAIN 11:04
PROVIDERS: ATTEND Specialist
DX: M79.18 Myalgia, other site (principal); M47.896 Other spondylosis, lumbar region; E11.9 Type 2 diabetes mellitus without complications
CPT/HCPCS: 20553; J1030; J2795

== ENCOUNTER → 2020-05-29 | Outpatient (CLI) | payer OTHER ==
[2020-05-29 12:33] VITALS: BP 125/84; PULSE 64; RESP 14; TEMP 98
--- NOTE | 2020-05-29 13:28 | P.PAINPG ---
Subjective Progress Note Date: 05/29/20 This is follow up visit for this 44 year-old female with history of chronic lower back pain . The pain controlled between the interventional pain management and oral pain medications, previously we have done radiofrequency ablation of the medial branch lumbar area. And later on we did trigger point injection, and the lumbar paraspinal muscles on the left side she continued to have muscle spasm in the lumbar paraspinal muscles Currently she is on [place] 5/325 every 8 hours, She does not experience any side effects from medications, and the medication helping her to do activity of daily livings, she denies any motor or sensory deficit she denies any fever or night sweats Review of systems is negative for chest pain, shortness of breath, new onset weakness, numbness/tingling, abdominal pain, malaise, fever, night sweats, chills, homicidal or suicidal ideation, or bowel or bladder incontinence. Objective - Vital Signs Vital signs: Vital Signs Temp 98.0 F 05/29/20 12:28 Pulse 64 05/29/20 12:28 Resp 14 05/29/20 12:28 BP 125/84 05/29/20 12:28 Pulse Ox 97 05/29/20 12:28 Intake & Output 05/28/20 05/29/20 05/29/20 18:59 06:59 18:59 Weight 127.006 kg - Exam -Constitutiona : Cooperative , not in acute distress . -HEENT : nech : supple , no Lymphadenopathy , normal thyroid size . : eyes : no ptosis , no icterus, no photophobia . - neurologic : Cranial nerve II to XII intact , no focal neurological deffecit . -psychatric : alert , oriented X 3 , appropriate affect , intact judgment and insight . -Lymphatic : no Lymphadenopathy . - musculoskeltal : Lumber spine moter stegnth lower extremities ,thigh and legs 5/5 Right side , 5/5 Left side deep tendon reflexes : normal Knee Jerk , normal ankle Jerk lumber facet Loading Test =positive Right , positive Left Range of motion of the lumbar spine Flexion 30 degrees, extension 10 degrees strait leg raising test = positive at 30 degree Fabere test= positive Right , and positive LT . Positive trigger point left side lumbar paraspinal muscles Assessment and Plan Plan: chronic low back pain secondary to lumbar spondylosis with lumbar facet arthropathy . Myofascial pain syndrome left side lumbar paraspinal muscles chronic and current use of high-risk medication (opioids) Patient denies any side effects of the current pain medication and the current treatment/medication helping the patient to do activity of daily living , Diagnoses, prognosis, treatment options, including but not limited to physical therapy, medication management, interventional therapies, and surgery, were discussed with the patient All the questions answered The narcotic consent was signed and patient agreed and understood the side effects and complications of opioid treatment. Patient signed the narcotic agreement, and was orally counseled, not to overuse, not to abuse, not to Divert , not tp sell pain medication, and to take it as prescribed only, Patient was counseled not to drive or operate heavy equipment while using narcotic medication, and advised not to use alcohol or any Illicit drugs while using the narcotis. understanding that lack of compliance with any of the above instructions, will likely to cause discharge from, the pain service, not to renew his narcotic prescriptions MAPS Reviwed and it was apropriate .UDS done on 03/27/2020 reviewed and it was appropriate Medication managements= patient will be given prescription refills for [place] 5/325 every 8 hours dispense 90 with 1 refill. Patient could benefit from baclofen 5 mg 3 times a day when necessary dispense 90 with 1 refill Interventions= patient given the option of doing trigger point injections and lumbar paraspinal muscles and patient prefer to try medication management Discussed with the patient the option of referring her for physical therapy for evaluation and treatment regarding her muscle spasm She preferred to try medication first Time with Patient: Less than 30 PQRS Measure Charge Sheet Measure #130: Documentation of Current Meds in Medical Chart: Patient's med ications documented in chart Measure #226: Tobacco Use: Screen & Cessation Intervention: Pt not a tobacco user Measure #111: Pneumonia Vaccination: Pneumococcal vaccine NOT administered or previously given Measure #47: Advance Care Plan: Advance care planning discussed & documented, pt chose/unable to give Measure #412: Opioid Treatment Agreement: Documented signed opioid trtmnt agreemnt min once during opioid trtmnt Measure #408: Opioid Therapy Follow-up Evaluation: Patient had f/u eval minimum every 3 months during opioid therapy Measure #317: Preventitive Care & Scrn High Bld Press & F/U: Normal blood pressure, f/u not required Measure #128: Body Mass Index (BMI) Screening & Follow-up: BMI documented ABOVE normal parameters - f/u documented Measure #131: Pain Assessment & Follow-up: Pain positive & plan documented, Follow-up scheduled Measure #431: Unhealthy Alcohol Use Preventative Care & Scrn: Patient not identified as an unhealthy alcohol user PQRS Narrative: Smoking Status Current every day smoker Narcotic Agreement Date Signed 02/22/20 Blood Pressure 125/84 Pain Intensity [Left Lower 6 Buttock] Scale Used Numeric (1 - 10) Hx Alcohol Use (MH) No Home Medications: Ambulatory Orders Loratadine [Claritin] 10 mg PO DAILY 11/03/16 Montelukast Sodium [Singulair] 10 mg PO HS 11/03/16 Propranolol [Inderal] 60 mg PO BID 11/03/16 Naproxen 500 mg PO BID 06/28/19 lisinopriL [Zestril] 20 mg PO HS 10/24/19 metFORMIN HCL [Glucophage] 500 mg PO DAILY 10/24/19 Escitalopram [Lexapro] 10 mg PO DAILY 04/16/20 Baclofen [Lioresal] 5 mg PO TID PRN #90 tablet 05/29/20 HYDROcodone/APAP 5-325MG [[place] 5-325] 1 tab PO Q8HR PRN 30 Days #90 tab 05/29/20 HYDROcodone/APAP 5-325MG [[place] 5-325] 1 tab PO Q8HR PRN 30 Days #90 tab 05/29/20 Controlled Substance Measures - Controlled Substance Measures Is patient prescribed a controlled substance at discharge?: Yes
== END | disposition home or self-care (01) ==
LOC: PNWHC3 12:04
PROVIDERS: ATTEND Specialist
DX: M47.816 Spondylosis without myelopathy or radiculopathy, lumbar region (principal); M79.18 Myalgia, other site; F17.210 Nicotine dependence, cigarettes, uncomplicated; Z79.891 Long term (current) use of opiate analgesic; Z79.899 Other long term (current) drug therapy; Z79.84 Long term (current) use of oral hypoglycemic drugs; Z79.1 Long term (current) use of non-steroidal anti-inflammatories (NSAID)
CPT/HCPCS: 99211

== ENCOUNTER → 2020-07-24 | Outpatient (CLI) | payer OTHER ==
[2020-07-24 10:50] VITALS: BP 105/72; PULSE 56; RESP 16; TEMP 97.5
--- NOTE | 2020-07-24 10:51 | P.PAINPG ---
Subjective Progress Note Date: 07/24/20 This is follow up visit for this 44 year-old female with history of chronic lower back pain . The pain controlled between the interventional pain management and oral pain medications, previously we have done radiofrequency ablation of the medial branch lumbar area. And later on we did trigger point injection, and the lumbar paraspinal muscles on the left side she continued to have muscle spasm in the lumbar paraspinal muscles Currently she is on [place] 5/325 every 8 hours and baclofen 5 mg TID,. She does not experience any side effects from medications, and the medication helping her to do activity of daily livings, she denies any motor or sensory deficit she denies any fever or night sweats Review of systems is negative for chest pain, shortness of breath, new onset weakness, numbness/tingling, abdominal pain, malaise, fever, night sweats, chills, homicidal or suicidal ideation, or bowel or bladder incontinence. Objective - Exam -Constitutiona : Cooperative , not in acute distress . -HEENT : nech : supple , no Lymphadenopathy , normal thyroid size . : eyes : no ptosis , no icterus, no photophobia . - neurologic : Cranial nerve II to XII intact , no focal neurological deffecit . -psychatric : alert , oriented X 3 , appropriate affect , intact judgment and insight . -Lymphatic : no Lymphadenopathy . - musculoskeltal : Lumber spine moter stegnth lower extremities ,thigh and legs 5/5 Right side , 5/5 Left side deep tendon reflexes : normal Knee Jerk , normal ankle Jerk lumber facet Loading Test =positive Right , positive Left Range of motion of the lumbar spine Flexion 30 degrees, extension 10 degrees strait leg raising test = positive at 30 degree Fabere test= positive Right , and positive LT . Positive trigger point left side lumbar paraspinal muscles Assessment and Plan Plan: chronic low back pain secondary to lumbar spondylosis with lumbar facet arth ropathy . Myofascial pain syndrome left side lumbar paraspinal muscles chronic and current use of high-risk medication (opioids) Patient denies any side effects of the current pain medication and the current treatment/medication helping the patient to do activity of daily living , Diagnoses, prognosis, treatment options, including but not limited to physical therapy, medication management, interventional therapies, and surgery, were discussed with the patient All the questions answered The narcotic consent was signed and patient agreed and understood the side effects and complications of opioid treatment. Patient signed the narcotic agreement, and was orally counseled, not to overuse, not to abuse, not to Divert , not tp sell pain medication, and to take it as prescribed only, Patient was counseled not to drive or operate heavy equipment while using narcotic medication, and advised not to use alcohol or any Illicit drugs while using the narcotis. understanding that lack of compliance with any of the above instructions, will likely to cause discharge from, the pain service, not to renew his narcotic prescriptions MAPS Reviwed and it was apropriate .UDS done on 03/27/2020 reviewed and it was appropriate Medication managements= patient will be given prescription refills for [place] 5/325 every 8 hours dispense 90 with 1 refill. Refilled baclofen 5 mg 3 times a day when necessary dispense 90 with 1 refill Interventions= patient given the option of doing trigger point injections and lumbar paraspinal muscles and patient prefer her medication Discussed with the patient the option of referring her for physical therapy for evaluation and treatment regarding her muscle spasm but is happy with her medication regimen Time with Patient: Less than 30 PQRS Measure Charge Sheet Measure #130: Documentation of Current Meds in Medical Chart: Patient's medications documented in chart Measure #226: Tobacco Use: Screen & Cessation Intervention: Pt not a tobacco user Measure #111: Pneumonia Vaccination: Pneumococcal vaccine NOT administered or previously given Measure #47: Advance Care Plan: Advance care planning discussed & documented, pt chose/unable to give Measure #412: Opioid Treatment Agreement: Documented signed opioid trtmnt agreemnt min once during opioid trtmnt Measure #408: Opioid Therapy Follow-up Evaluation: Patient had f/u eval minimum every 3 months during opioid therapy Measure #317: Preventitive Care & Scrn High Bld Press & F/U: Normal blood pressure, f/u not required Measure #128: Body Mass Index (BMI) Screening & Follow-up: BMI documented ABOVE normal parameters - f/u documented Measure #131: Pain Assessment & Follow-up: Pain positive & plan documented, Follow-up scheduled Measure #431: Unhealthy Alcohol Use Preventative Care & Scrn: Patient not identified as an unhealthy alcohol user PQRS Narrative: Smoking Status Current every day smoker Narcotic Agreement Date Signed 02/22/20 Blood Pressure 125/84 Pain Intensity [Left Lower 6 Buttock] Scale Used Numeric (1 - 10) Hx Alcohol Use (MH) No Objective - Vital Signs Vital signs: Intake & Output 07/22/20 07/23/20 07/23/20 18:59 06:59 18:59 Weight 129.274 kg PQRS Measure Charge Sheet PQRS Narrative: Smoking Status Current every day smoker Narcotic Agreement Date Signed 02/22/20 Pain Intensity [Lower Back] 7 Hx Alcohol Use (MH) No Home Medications: Ambulatory Orders Loratadine [Claritin] 10 mg PO DAILY 11/03/16 Montelukast Sodium [Singulair] 10 mg PO HS 11/03/16 Propranolol [Inderal] 60 mg PO BID 11/03/16 Naproxen 500 mg PO BID 06/28/19 lisinopriL [Zestril] 20 mg PO HS 10/24/19 metFORMIN HCL [Glucophage] 500 mg PO BID 10/24/19 Escitalopram [Lexapro] 10 mg PO DAILY 04/16/20 Baclofen [Lioresal] 5 mg PO TID PRN #90 tablet 05/29/20 HYDROcodone/APAP 5-325MG [[place] 5-325] 1 tab PO Q8HR PRN 30 Days #90 tab 05/29/20 Controlled Substance Measures - Controlled Substance Measures Is patient prescribed a controlled substance at discharge?: Yes When asked, does pt state using other controlled substances?: No If prescribed controlled substance>3 days was MAPS reviewed?: Yes If Rx opioid, was Start Talking consent form obtained?: Yes If opioid is for acute pain is fill amount 7 days or less?: No Was information provided regarding opioid addiction?: Yes
== END | disposition home or self-care (01) ==
LOC: PNWHC3 10:35
PROVIDERS: ATTEND Anesthesiology
DX: M47.816 Spondylosis without myelopathy or radiculopathy, lumbar region (principal); M79.18 Myalgia, other site; G89.29 Other chronic pain; F17.200 Nicotine dependence, unspecified, uncomplicated; Z79.899 Other long term (current) drug therapy; Z79.891 Long term (current) use of opiate analgesic; Z79.84 Long term (current) use of oral hypoglycemic drugs
CPT/HCPCS: 99211

== ENCOUNTER → 2020-09-25 | Outpatient (CLI) | payer OTHER ==
[2020-09-25 11:47] VITALS: BP 157/66; PULSE 60; RESP 18; TEMP 97.8
--- NOTE | 2020-09-25 11:55 | P.PN ---
Subjective Progress Note Date: 09/25/20 This is follow up visit for this 44 year-old female with history of chronic lower back pain . The pain controlled between the interventional pain management and oral pain medications, previously we have done radiofrequency ablation of the medial branch lumbar area. And later on we did trigger point injection, and the lumbar paraspinal muscles on the left side she continued to have muscle spasm in the lumbar paraspinal muscles Currently she is on [place] 5/325 every 8 hours, And baclofen 5 mg every 8 hours when necessary, She does not experience any side effects from medications, and the medication helping her to do activity of daily livings, she denies any motor or sensory deficit she denies any fever or night sweats Review of systems is negative for chest pain, shortness of breath, new onset weakness, numbness/tingling, abdominal pain, malaise, fever, night sweats, chills, homicidal or suicidal ideation, or bowel or bladder incontinence. Objective -Constitutiona : Cooperative , not in acute distress . -HEENT : nech : supple , no Lymphadenopathy , normal thyroid size . : eyes : no ptosis , no icterus, no photophobia . - neurologic : Cranial nerve II to XII intact , no focal neurological deffecit . -psychatric : alert , oriented X 3 , appropriate affect , intact judgment and insight . -Lymphatic : no Lymphadenopathy . - musculoskeltal : Lumber spine moter stegnth lower extremities ,thigh and legs 5/5 Right side , 5/5 Left side Assessment and Plan chronic low back pain secondary to lumbar spondylosis with lumbar facet arthropathy . Myofascial pain syndrome left side lumbar paraspinal muscles chronic and current use of high-risk medication (opioids) Patient denies any side effects of the current pain medication and the current treatment/medication helping the patient to do activity of daily living , Diagnoses, prognosis, treatment options, including but not limited to physical therapy, medication management, interventional therapies, and surgery, were discussed with the patient All the questions answered The narcotic consent was signed and patient agreed and understood the side effects and complications of opioid treatment. Patient signed the narcotic agreement, and was orally counseled, not to overuse, not to abuse, not to Divert , not tp sell pain medication, and to take it as prescribed only, Patient was counseled not to drive or operate heavy equipment while using narcotic medication, and advised not to use alcohol or any Illicit drugs while using the narcotis. understanding that lack of compliance with any of the above instructions, dorothy l likely to cause discharge from, the pain service, not to renew his narcotic prescriptions MAPS Reviwed and it was apropriate .UDS done Medication managements= patient will be given prescription refills for [place] 5/325 every 8 hours dispense 90 with 1 refill. Continue baclofen 5 mg 3 times a day when necessary dispense 90 with 1 refill Time with Patient: Less than 30 PQRS Measure Charge Sheet Measure #130: Documentation of Current Meds in Medical Chart: Patient's medications documented in chart Measure #226: Tobacco Use: Screen & Cessation Intervention: Patient screened and intervention given Measure #111: Pneumonia Vaccination: Pneumococcal vaccine NOT administered or previously given Measure #47: Advance Care Plan: Advance care planning discussed & documented, pt chose/unable to give Measure #412: Opioid Treatment Agreement: Documented signed opioid trtmnt agreemnt min once during opioid trtmnt Measure #408: Opioid Therapy Follow-up Evaluation: Patient had f/u eval minimum every 3 months during opioid therapy Measure #317: Preventitive Care & Scrn High Bld Press & F/U: Blood pressure 157/66 she will follow up with the primary care Measure #128: Body Mass Index (BMI) Screening & Follow-up: BMI documented ABOVE normal parameters - f/u documented Measure #131: Pain Assessment & Follow-up: Pain positive & plan documented, Follow-up scheduled Measure #431: Unhealthy Alcohol Use Preventative Care & Scrn: Patient not identified as an unhealthy alcohol user PQRS Narrative: Objective - Vital Signs Vital signs: Vital Signs Temp 97.8 F 09/25/20 11:44 Pulse 60 09/25/20 11:44 Resp 18 09/25/20 11:44 BP 157/66 09/25/20 11:44 Pulse Ox 97 09/25/20 11:44
== END | disposition home or self-care (01) ==
LOC: PNWHC3 11:31
PROVIDERS: ATTEND Specialist
DX: M47.816 Spondylosis without myelopathy or radiculopathy, lumbar region (principal)
CPT/HCPCS: 99212

== ENCOUNTER → 2020-11-20 | Outpatient (CLI) | payer OTHER ==
[2020-11-20 11:41] VITALS: BP 136/80; PULSE 63; RESP 16; TEMP 98.1
--- NOTE | 2020-11-20 11:48 | P.PN ---
Subjective Progress Note Date: 11/20/20 Veronica is a 45-year-old female who presents today for follow-up secondary to her low back pain. She reports her back pain is been stable since her radiofrequency ablation along with the pain medication. She is [place] 5 mg 2-3 times a day as needed. She denies any side effects from the medications. She reports her VAS today is 3 out of 10. She is been trying to be as mobile as possible, she takes care of grandchildren regularly. She feels that her weight has been about the same. She has had difficult is losing weight, she reports that she does not eat very much just having difficulty losing weight.. 50% relief from the radiofrequency ablation were performed about 6 months ago. Review of Systems: Denies any New chest pain, short of breath, Nausea/vomitting, abdominal pain, bowel or bladder incontinence, or any overt new neurologic symptoms in his upper or lower extremities. Objective - Vital Signs Vital signs: Vital Signs Temp 98.1 F 11/20/20 11:36 Pulse 63 11/20/20 11:36 Resp 16 11/20/20 11:36 BP 136/80 11/20/20 11:36 Pulse Ox 98 11/20/20 11:36 - Exam General: Awake and alert oriented 3 no distress Respiratory exam: No audible wheezing no accessory muscle usage Cardiovascular exam: regular rate, palpable bilateral pulses, no lower extremity edema Abdominal exam: No distention nontender to palpation, obese Lumbar spine: Loss of lumbar lordosis, normal alignment, non tender to palpation over bilateral paraspinal muscles, facet loading is positive bilaterally. Straight leg raise is negative. Limited range of motion due to pain with flexion, extension and side bending. Neuro exam: Normal sensation in bilateral upper extremities, deep tendon reflexes are 2+ bilateral upper extremities. Normal sensation in bilateral lower extremities. Deep tendon reflexes are 2+ in lower extremities Psych exam: Cooperative, appropriate mood Assessment and Plan Assessment: #1 lumbar spondylosis without myelopathy #2 obesity #3 opioid dependence Plan: After review the records and examination the patient, I believe that she's been stable on the current medications and interventional therapies. We will continue with the current treatment plan at this time. I will not change anything on today's visit. I explained that our next visit we can discuss po tential repeating the radio frequency ablation if needed. In the meantime we will take a urine sample today. She was not able to provide a urine sample on the last visit. We discussed dietary changes in detail today. I have spent 31 minutes on patient care today. The time was used to review the medical records including relevant urine studies and Prescription history (MAPs), review of the available imaging, evaluation and examination of the patient, coordination of care with the medical staff and if applicable referring physicians, as well as creation of the medical record. Maps were checked and appropriate, opioid start talking form is on file and updated, urine drug screens of been appropriate and have been reviewed.
== END ==
LOC: PNWHC3 10:44
PROVIDERS: ATTEND Hospitalist
DX: M47.816 Spondylosis without myelopathy or radiculopathy, lumbar region (principal); E66.9 Obesity, unspecified; F11.20 Opioid dependence, uncomplicated; F17.200 Nicotine dependence, unspecified, uncomplicated; Z68.43 Body mass index [BMI] 50.0-59.9, adult
CPT/HCPCS: 80307; G0482; G0463; 99212

== ENCOUNTER → 2021-01-15 | Outpatient (CLI) | payer OTHER ==
[2021-01-15 09:29] VITALS: BP 146/80; PULSE 68; RESP 18; TEMP 98
--- NOTE | 2021-01-15 09:43 | P.PN ---
Subjective Progress Note Date: 01/15/21 This is follow up visit for this 45 year-old female with history of chronic lower back pain . The pain controlled between the interventional pain management ,and oral pain medications, previously we have done radiofrequency ablation of the medial branch lumbar area. And later on we did trigger point in jection, and the lumbar paraspinal muscles , she continued to have muscle spasm in the lumbar paraspinal muscles,Currently she is on [place] 5/325 every 8 hours, And baclofen 5 mg every 8 hours when necessary, She does not experience any side effects from medications, and the medication helping her to do activity of daily livings, she denies any motor or sensory deficit she denies any fever or night sweats Review of systems is negative for chest pain, shortness of breath, new onset weakness, numbness/tingling, abdominal pain, malaise, fever, night sweats, chills, homicidal or suicidal ideation, or bowel or bladder incontinence, patient had some hoarseness in her voice and she is going to have a biopsy of the vocal cord next week.at [facility]. Objective -Constitutiona : Cooperative , not in acute distress . -HEENT : nech : supple , no Lymphadenopathy , normal thyroid size . : eyes : no ptosis , no icterus, no photophobia . - neurologic : Cranial nerve II to XII intact , no focal neurological deffecit . -psychatric : alert , oriented X 3 , appropriate affect , intact judgment and insight . -Lymphatic : no Lymphadenopathy . - musculoskeltal : Lumber spine moter stegnth lower extremities ,thigh and legs 5/5 Right side , 5/5 Left side Assessment and Plan chronic low back pain secondary to lumbar spondylosis with lumbar facet arthropathy . Myofascial pain syndrome left side lumbar paraspinal muscles chronic and current use of high-risk medication (opioids) Patient denies any side effects of the current pain medication and the current treatment/medication helping the patient to do activity of daily living , Diagnoses, prognosis, treatment options, including but not limited to physical therapy, medication management, interventional therapies, and surgery, were discussed with the patient All the questions answered The narcotic consent was signed and patient agreed and understood the side effects and complications of opioid treatment. Patient signed the narcotic agreement, and was orally counseled, not to overuse, not to abuse, not to Divert , not tp sell pain medication, and to take it as prescribed only, Patient was counseled not to drive or operate heavy equipment while using narcotic medication, and advised not to use alcohol or any Illicit drugs while using the narcotis. understanding that lack of compliance with any of the above instructions, will likely to cause discharge from, the pain service, not to renew his narcotic prescriptions MAPS Reviwed and it was apropriate .UDS done Medication managements= patient will be given prescription refills for [place] 5/325 every 8 hours dispense 90 with 1 refill. Continue baclofen 5 mg 3 times a day when necessary dispense 90 with 1 refill Time with Patient: Less than 30 PQRS Measure Charge Sheet Measure #130: Documentation of Current Meds in Medical Chart: Patient's medications documented in chart Measure #226: Tobacco Use: Screen & Cessation Intervention: Patient screened and intervention given Measure #111: Pneumonia Vaccination: Pneumococcal vaccine NOT administered or previously given Measure #47: Advance Care Plan: Advance care planning discussed & documented, pt chose/unable to give Measure #412: Opioid Treatment Agreement: Documented signed opioid trtmnt agre emnt min once during opioid trtmnt Measure #408: Opioid Therapy Follow-up Evaluation: Patient had f/u eval minimum every 3 months during opioid therapy Measure #317: Preventitive Care & Scrn High Bld Press & F/U: Blood pressure 146/80 she will follow up with the primary care Measure #128: Body Mass Index (BMI) Screening & Follow-up: BMI documented ABOVE normal parameters - f/u documented Measure #131: Pain Assessment & Follow-up: Pain positive & plan documented, Follow-up scheduled Measure #431: Unhealthy Alcohol Use Preventative Care & Scrn: Patient not identified as an unhealthy alcohol user PQRS Narrative: Objective - Vital Signs Vital signs: Vital Signs Temp 98.0 F 01/15/21 09:28 Pulse 68 01/15/21 09:28 Resp 18 01/15/21 09:28 BP 146/80 01/15/21 09:28 Pulse Ox 97 01/15/21 09:28
== END ==
LOC: PNWHC3 09:21
PROVIDERS: ATTEND Specialist
DX: M47.816 Spondylosis without myelopathy or radiculopathy, lumbar region (principal); G89.29 Other chronic pain; M79.18 Myalgia, other site; Z79.891 Long term (current) use of opiate analgesic; F17.200 Nicotine dependence, unspecified, uncomplicated
CPT/HCPCS: 99211

== ENCOUNTER → 2021-03-12 | Outpatient (CLI) | payer OTHER ==
[2021-03-12 08:38] VITALS: BP 140/73; PULSE 62; RESP 18; TEMP 98
--- NOTE | 2021-03-12 08:44 | P.PAINPG ---
Subjective Progress Note Date: 03/11/21 This is follow up visit for this 45 year-old female with history of chronic lower back pain . The pain controlled between the interventional pain management ,and oral pain medications, previously we have done radiofrequency ablation of the medial branch lumbar area. And later on we did trigger point in jection, and the lumbar paraspinal muscles , she continued to have muscle spasm in the lumbar paraspinal muscles,Currently she is on [place] 5/325 every 8 hours, And baclofen 5 mg every 8 hours when necessary, She does not experience any side effects from medications, and the medication helping her to do activity of daily livings, she denies any motor or sensory deficit she denies any fever or night sweats. She had a biopsy on a mass in her throat is negative for cancer. She is happy with that. Review of systems is negative for chest pain, shortness of breath, new onset weakness, numbness/tingling, abdominal pain, malaise, fever, night sweats, chills, homicidal or suicidal ideation, or bowel or bladder incontinence, patient had some hoarseness in her voice and she is going to have a biopsy of the vocal cord next week.at [facility]. Objective -Constitutiona : Cooperative , not in acute distress . -HEENT : nech : supple , no Lymphadenopathy , normal thyroid size . : eyes : no ptosis , no icterus, no photophobia . - neurologic : Cranial nerve II to XII intact , no focal neurological deffecit . -psychatric : alert , oriented X 3 , appropriate affect , intact judgment and insight . -Lymphatic : no Lymphadenopathy . - musculoskeltal : Lumber spine moter stegnth lower extremities ,thigh and legs 5/5 Right side , 5/5 Left side Assessment and Plan chronic low back pain secondary to lumbar spondylosis with lumbar facet arthropathy . Myofascial pain syndrome left side lumbar paraspinal muscles chronic and current use of high-risk medication (opioids) Patient denies any side effects of the current pain medication and the current treatment/medication helping the patient to do activity of daily living , Diagnoses, prognosis, treatment options, including but not limited to physical therapy, medication management, interventional therapies, and surgery, were discussed with the patient All the questions answered The narcotic consent was signed and patient agreed and understood the side effects and complications of opioid treatment. Patient signed the narcotic agreement, and was orally counseled, not to overuse, not to abuse, not to Divert , not tp sell pain medication, and to take it as prescribed only, Patient was counseled not to drive or operate heavy equipment while using narcotic medication, and advised not to use alcohol or any Illicit drugs while using the narcotis. understanding that lack of compliance with any of the above instructions, wi ll likely to cause discharge from, the pain service, not to renew his narcotic prescriptions MAPS Reviwed and it was apropriate .UDS appropriate Medication managements= patient will be given prescription refills for [place] 5/325 every 8 hours dispense 90 with 1 refill. Continue baclofen 5 mg 3 times a day when necessary dispense 90 with 1 refill I have spent 22 minutes on review of the records, review of the imaging available, [id number] interaction with the patient, medication management, follow-up care coordination and record creation. PQRS Measure Charge Sheet PQRS Narrative: Smoking Status Current every day smoker Narcotic Agreement Date Signed 02/22/20 Pain Intensity [Lower Back] 7 Scale Used Numeric (1 - 10) Hx Alcohol Use (MH) No Home Medications: Ambulatory Orders Loratadine [Claritin] 10 mg PO DAILY 11/03/16 Montelukast Sodium [Singulair] 10 mg PO HS 11/03/16 Propranolol [Inderal] 60 mg PO BID 11/03/16 Naproxen 500 mg PO BID 06/28/19 lisinopriL [Zestril] 20 mg PO HS 10/24/19 metFORMIN HCL [Glucophage] 500 mg PO BID 10/24/19 Escitalopram [Lexapro] 10 mg PO DAILY 04/16/20 Baclofen [Lioresal] 5 mg PO TID PRN #90 tablet 03/12/21 HYDROcodone/APAP 5-325MG [[place] 5-325] 1 tab PO Q8H PRN 30 Days #90 tab 03/12/21 HYDROcodone/APAP 5-325MG [[place] 5-325] 1 tab PO Q8HR PRN 30 Days #90 tab 03/12/21 Controlled Substance Measures - Controlled Substance Measures Is patient prescribed a controlled substance at discharge?: Yes When asked, does pt state using other controlled substances?: No If prescribed controlled substance>3 days was MAPS reviewed?: Yes If Rx opioid, was Start Talking consent form obtained?: Yes If opioid is for acute pain is fill amount 7 days or less?: No Was information provided regarding opioid addiction?: Yes
== END ==
LOC: PNWHC3 08:27
PROVIDERS: ATTEND Anesthesiology
DX: M47.816 Spondylosis without myelopathy or radiculopathy, lumbar region (principal); M79.18 Myalgia, other site; Z79.891 Long term (current) use of opiate analgesic; Z87.891 Personal history of nicotine dependence
CPT/HCPCS: 99211

== ENCOUNTER → 2021-05-07 | Outpatient (CLI) | payer OTHER ==
[2021-05-07 08:44] VITALS: BP 180/72; PULSE 82; RESP 18; TEMP 98.5
--- NOTE | 2021-05-07 09:13 | P.PN ---
Subjective Progress Note Date: 05/07/21 This is a 45-yearold -morbidly obese lady with history of chronic axial lower back pain. The patient's pain has been well-controlled with a combination of oral opioids including [place] 5 mg 3 times a day and baclofen 5 mg 3 times a day and interventional pain procedures. Patient denies any changes since her last visit to our clinic. Patient denies new-onset weakness, bowel/bladder incontinence, or any other signs or symptoms of cauda equina syndrome. There are no signs of acute intoxication, and no indications of medication diversion or overuse. In addition to above, 13-point review of systems is also negative for chest pain, shortness of breath, changes in vision, changes in hearing, new onset weakness, abdominal pain, diarrhea, extreme fatigue, malaise, fever, skin changes, homicidal or suicidal ideation, or bowel or bladder incontinence. Vital Signs: Reviewed in EMR Gen: AAOx3, NAD HEENT: PERRLA,hearing grossly normal Pulm: resp unlabored Neck: supple, trachea midline Neuro exam of the lower extremities: Normal muscle strength in the lower extremi ties bilaterally Facet loading test: Positive on the lumbar area bilaterally Tenderness in the paravertebral musculature: Positive in the lumbar paravertebral musculature bilaterally. Neuro: CN II-XII grossly intact, Imaging: Reviewed in EMR/chart Assessment: morbid obesity Lumbar spondylosis without myelopathy Plan: 1. Explanation: When patients on opioids, opioid and psychological risk scores were reviewed. Diagnoses, prognoses, and multiple treatment options including but not limited to physical therapy, interventional therapies, adjuvant medical therapies, narcotic medication therapies, and surgery were discussed with the patient and all questions were answered to the patient's satisfaction. 2. Opioid agreement:When patients are prescribed opoids through our clinic, o pioid agreement is signed with the patient and the patient is warned not to use opioids while driving or before driving and not to combine opioids with benzodiazepines or alcohol. 3. Counseling: When patient is smoking or obese, the patient was counseled extensively on SMOKING CESSATION, BODY MASS INDEX, EXERCISE. Specifically, the patient was instructed regarding the importance of smoking cessation, obesity, and exercise in the context of both chronic pain and overall health. 4. Procedures: For now 5. Consultations: None 6. Investigations: None 7. Medications: decreased [place] to 5 mg twice a day as needed for pain and continue baclofen 5 mg 3 times a day. The patient may use ibuprofen [id number] to support her pain control as needed. 8. Disposition: to return to clinic in 4 weeks 9. Maps were reviewed and were appropriate. PQRS measures: 1-Patient's medications are documented in the chart. 2-Tobacco use is negative, counseling given 3-Patient has had a pneumococcal vaccine. 4-Advanced care planning discussed, patient unable to give 5-Opioid contract signed with the patient. 6-Pain positive, follow-up visit or procedure scheduled 7-Patient's blood pressure measured and documented above limits. The patient will follow up with his primary care physician. 8-Patient's weight was measured, and body mass index ABOVE the normal limits, and counseling was done. Patient instructed to follow up with PCP. 9-Patient WAS NOT identified as an unhealthy alcohol user. Controlled Substance Measures Is patient prescribed a controlled substance at discharge?: Yes When asked, does pt state using other controlled substances?: No If prescribed controlled substance>3 days was MAPS reviewed?: Yes If Rx opioid, was Start Talking consent form obtained?: Yes If opioid is for acute pain is fill amount 7 days or less?: No Was information provided regarding opioid addiction?: Yes Objective - Vital Signs Vital signs: Vital Signs Temp 98.5 F 05/07/21 08:40 Pulse 82 05/07/21 08:40 Resp 18 05/07/21 08:40 BP 180/72 05/07/21 08:40 Pulse Ox 95 05/07/21 08:40
== END ==
LOC: PNWHC3 08:15
PROVIDERS: ATTEND Anesthesiology
DX: M47.816 Spondylosis without myelopathy or radiculopathy, lumbar region (principal); E66.01 Morbid (severe) obesity due to excess calories; F17.200 Nicotine dependence, unspecified, uncomplicated
CPT/HCPCS: 80307; G0482; G0463; 99212

== ENCOUNTER → 2021-06-04 | Outpatient (CLI) | payer OTHER ==
[2021-06-04 08:59] VITALS: BP 109/74; PULSE 57; RESP 18; TEMP 98
--- NOTE | 2021-06-04 09:04 | P.PN ---
Subjective Progress Note Date: 06/04/21 This is follow up visit for this 45 year-old female with history of chronic lower back pain . The pain controlled between the interventional pain management and oral pain medications, previously we have done radiofrequency ablation of the medial branch lumbar area. Currently she is on [place] 5/325 every 8 hours, And baclofen 5 mg every 8 hours when necessary, She does not experience any side effects from medications, and the medication helping her to do activity of daily livings, she denies any motor or sensory deficit she denies any fever or night sweats Review of systems is negative for chest pain, shortness of breath, new onset weakness, numbness/tingling, abdominal pain, malaise, fever, night sweats, chills, homicidal or suicidal ideation, or bowel or bladder incontinence. Patient reported that her pain increased since we decreased her [place] dose to 2 tablets per day, she was not able to do any activity of daily living secondary to the increased intensity of the pain Objective -Constitutiona : Cooperative , not in acute distress . -HEENT : nech : supple , no Lymphadenopathy , normal thyroid size . : eyes : no ptosis , no icterus, no photophobia . - neurologic : Cranial nerve II to XII intact , no focal neurological deffecit . -psychatric : alert , oriented X 3 , appropriate affect , intact judgment and insight . -Lymphatic : no Lymphadenopathy . - musculoskeltal : Lumber spine moter stegnth lower extremities ,thigh and legs 5/5 Right side , 5/5 Left side Assessment and Plan chronic low back pain secondary to lumbar spondylosis with lumbar facet arthropathy . Myofascial pain syndrome left side lumbar paraspinal muscles chronic and current use of high-risk medication (opioids) Patient denies any side effects of the current pain medication and the current treatment/medication helping the patient to do activity of daily living , Diagnoses, prognosis, treatment options, including but not limited to physical therapy, medication management, interventional therapies, and surgery, were discussed with the patient All the questions answered The narcotic consent was signed and patient agreed and understood the side effects and complications of opioid treatment. Patient signed the narcotic agreement, and was orally counseled, not to overuse, not to abuse, not to Divert , not tp sell pain medication, and to take it as prescribed only, Patient was counseled not to drive or operate heavy equipment while using narcotic medication, and advised not to use alcohol or any Illicit drugs while using the narcotis. understanding that lack of compliance with any of the above instructions, will likely to cause discharge from, the pain service, not to renew his narcotic prescriptions MAPS Reviwed and it was apropriate .UDS done Medication managements= patient will be given prescription refills for [place] 5/325 every 8 hours dispense 90 with 1 refill. Continue baclofen 5 mg 3 times a day when necessary dispense 90 with 1 refill Time with Patient: Less than 30 - PQRS measures = - Patient's medications are documented in the chart. -Tobacco use is positive, and counseling.Given. -Patient's has not received pneumococcal vaccine. -Advanced care planning discussed, patient not eligible. -Opiate contract signed. -Pain positive and follow-up visit/procedure is scheduled. -Patient's blood pressure measured [ 109/74 ] , and documented in the record ,and patient will follow up with the primary care. -Patient's weight was measured and body mass index [ 49 ] above the normal limits and counseling was done. and patient instructed to follow-up with the primary care physician. -Patient was not identified as an unhealthy alcohol user Objective - Vital Signs Vital signs: Vital Signs Temp 98 F 06/04/21 08:57 Pulse 57 L 06/04/21 08:57 Resp 18 06/04/21 08:57 BP 109/74 06/04/21 08:57 Pulse Ox
== END ==
LOC: PNWHC3 08:36
PROVIDERS: ATTEND Specialist
DX: M47.816 Spondylosis without myelopathy or radiculopathy, lumbar region (principal); G89.29 Other chronic pain; M79.18 Myalgia, other site; Z79.891 Long term (current) use of opiate analgesic; F17.200 Nicotine dependence, unspecified, uncomplicated
CPT/HCPCS: 99211

== ENCOUNTER → 2021-07-30 | Outpatient (CLI) | payer OTHER ==
[2021-07-30 08:24] VITALS: BP 145/79; PULSE 57; RESP 18; TEMP 97.7
--- NOTE | 2021-07-30 08:44 | P.PN ---
Subjective Progress Note Date: 07/30/21 This is follow up visit for this 45 year-old female with history of chronic lower back pain is diagnosed with lumbar spondylosis with lumbar facet arthropathy ,and lumbar degenerative disc disease, The pain controlled between the interventional pain management and oral pain medications, previously we have done radiofrequency ablation of the medial branch lumbar area. Currently she is on [place] 5/325 every 8 hours,And baclofen 5 mg every 8 hours when necessary, She does not experience any side effects from medications, and the medication helping her to do activity of daily livings, she denies any motor or sensory deficit she denies any fever or night sweats Review of systems is negative for chest pain, shortness of breath, new onset weakness, numbness/tingling, abdominal pain, malaise, fever, night sweats, chills, homicidal or suicidal ideation, or bowel or bladder incontinence. Patient reported that her pain increased since we decreased her [place] dose to 2 tablets per day, she was not able to do any activity of daily living secondary to the increased intensity of the pain Objective -Constitutiona : Cooperative , not in acute distress . -HEENT : nech : supple , no Lymphadenopathy , normal thyroid size . : eyes : no ptosis , no icterus, no photophobia . - neurologic : Cranial nerve II to XII intact , no focal neurological deffecit . -psychatric : alert , oriented X 3 , appropriate affect , intact judgment and insight . -Lymphatic : no Lymphadenopathy . - musculoskeltal : Lumber spine moter stegnth lower extremities ,thigh and legs 5/5 Right side , 5/5 Left side Assessment and Plan chronic low back pain secondary to lumbar spondylosis with lumbar facet arthropathy . Myofascial pain syndrome left side lumbar paraspinal muscles chronic and current use of high-risk medication (opioids) Patient denies any side effects of the current pain medication and the current treatment/medication helping the patient to do activity of daily living , Diagnoses, prognosis, treatment options, including but not limited to physical therapy, medication management, interventional therapies, and surgery, were discussed with the patient All the questions answered The narcotic consent was signed and patient agreed and understood the side effects and complications of opioid treatment. Patient signed the narcotic agreement, and was orally counseled, not to overuse, not to abuse, not to Divert , not tp sell pain medication, and to take it as prescribed only, Patient was counseled not to drive or operate heavy equipment while using narcotic medication, and advised not to use alcohol or any Illicit drugs while using the narcotis. understanding that lack of compliance with any of the above instructions, will likely to cause discharge from, the pain service, not to renew his narcotic prescriptions MAPS Reviwed and it was apropriate .UDS done previously and it was appropriate Medication managements= patient will be given prescription refills for [place] 5/325 every 8 hours dispense 90 with 1 refill. Continue baclofen 5 mg 3 times a day when necessary dispense 90 with 1 refill Time with Patient: Less than 30 - PQRS measures = - Patient's medications are documented in the chart. -Tobacco use is positive, and counseling.Given. -Patient's has not received pneumococcal vaccine. -Advanced care planning discussed, patient not eligible. -Opiate contract signed. -Pain positive and follow-up visit/procedure is scheduled. -Patient's blood pressure measured [ 145/79 ] , and documented in the record ,and patient will follow up with the primary care. -Patient's weight was measured and body mass index [ 49 ] above the normal limits and counseling was done. and patient instructed to follow-up with the primary care physician. -Patient was not identified as an unhealthy alcohol user Objective - Vital Signs Vital signs: Vital Signs Temp 97.7 F 07/30/21 08:20 Pulse 57 L 07/30/21 08:20 Resp 18 07/30/21 08:20 BP 145/79 07/30/21 08:20 Pulse Ox 98 07/30/21 08:20
== END ==
LOC: PNWHC3 07:47
PROVIDERS: ATTEND Specialist
DX: G89.29 Other chronic pain (principal); M47.816 Spondylosis without myelopathy or radiculopathy, lumbar region; M79.18 Myalgia, other site; F17.200 Nicotine dependence, unspecified, uncomplicated; Z79.891 Long term (current) use of opiate analgesic
CPT/HCPCS: 99211

== ENCOUNTER → 2021-10-22 | Outpatient (CLI) | payer OTHER | END | disposition home or self-care (01) | LOC: LABWHC1 09:39 | PROVIDERS: ATTEND Physician Assistant Medical | DX: M51.26 Other intervertebral disc displacement, lumbar region (principal) | CPT/HCPCS: 36415; 80307 ==

== ENCOUNTER → 2021-10-22 | Outpatient (CLI) | payer OTHER ==
--- NOTE | 2021-09-24 08:57 | P.PN ---
Progress Note - Text Progress Note Date: 09/24/21 Pt called clinic today, stated she has to reschedule her appt due to inclement weather and requested refills in the interim. UDS reviewed from Apr, 2021 and was consistent. Will refill 1 mo supply of [place] 5/325mg TID prn #90 and Baclofen
--- NOTE | 2021-10-22 09:06 | P.PN ---
Subjective Progress Note Date: 10/22/21 Principal diagnosis: A 45 yr old female with a history of severe and chronic low back pain secondary to lumbar degenerative disc diseases and lumbar spondylosis with facet arthropathy presents today for medication refills. Pain level in her lower lumbar spine is 8 out of 10 in intensity, dull, achy and localized in the center of her lower back without radiation of pain. Pain is provoked by bending, extending her spine, standing for periods of 20 minutes or more or walking for periods of 5 minutes or more. Pain is alleviated with medications, physical therapy years ago that was slightly effective, laying on her side with pillows under her legs and rest. Patient is currently on Acosta 5/325 #90 and baclofen 5 mg #90 Patient denies any side effects of the medication(s), denies excessive drowsiness or sleepiness, denies suicidal ideation and reports that the current pain medication is helping to control the pain and improve activities of daily living. Patient denies any motor or sensory deficits. Patient denies any fever or night sweats, denies any change in the bowel movements or urination. Physical Examination: -Constitutional: Cooperative. Not in acute distress . -HEENT: Neck is supple. No lymphadenopathy. No thyromegaly. Normal thyroid size. Eyes: No ptosis , no icterus, no photophobia. ENT: No auditory deficits. Normal oropharynx. No Thrush. - Respiratory: Chest clear to auscultations bilaterally. No wheezing. No rhonchi. - Cardiovascular: Regular rate and rhythm. S1 / S2 , no S3 , no S4. - Gastrointestinal: Abdomen soft no tenderness. Bowel sounds positive in all four quadrants. No organomegaly. - Genitourinary: Deferred. - Neurologic: Cranial nerve II to XII intact. No focal neurological deficits. - Psychatric: Alert & oriented x 3. Matching mood & appropriate affect. Judgment and insight intact. - Lymphatic: No Lymphadenopathy. - Musculoskeletal: Cervical spine: Muscle bulk/ tone/ strength in the bilateral upper extremities normal. Facet loading test cervical area positive. Lumbar spine: Motor bulk/ tone/ strength lower extremities , thigh and legs : 5/5 Deep tendon reflexes : Normal Knee Jerk. Normal Ankle Jerk . Vertebral body tenderness to palpation over L4, L5, S1 Lumbar Facet Loading Test positive L5-S1 with accompanying paraspinal muscle spasms Straight Leg Raise: positive at 30 degrees right side/ left side Gaenslen's Test positive Sacral spine : Severe tenderness over the Sacroiliac joint: right side / left side Range of motion: Flexion of the lumbar spine <60 degrees Range of motion: Extension of the lumbar spine <20 degrees Gaenslen's Test positive Silke test: positive right side / left side Assessment and plan: Chronic low back pain secondary to lumbar degenerative disc disease , lumbar spondylosis with facet arthropathy without myelopathy Chronic and current use of high-risk medication (Opioids). The patient was counseled about risk of opioid use, psychological risk associated with opioids and was orally counseled to not overuse , divert or sell medications. Pt is to store medication in a safe location. The patient is counseled against driving while using narcotic medications and also not to use alcohol or any illicit recreational drugs. Patient verbalized understanding that the lack of compliance will result in failure to renew narcotic prescription(s) as well as possible discharge from the clinic Diagnoses, prognosis and treatment options including but not limited to physical therapy, surgical interventions, interventional therapies and medication management including narcotics and adjuvant medication were d iscussed. All patient questions answered MAPS reviewed and it was appropriate. Urine for UDS collected today Prescription refill for Acosta 5/325 #90 with 1 refill I have spent 31 minutes on patient care today. Dr Alaniz was available by phone for the evaluation of this patient. The time was used to review the medical records including relevant urine studies and Prescription history (MAPs), review of the available imaging, evaluation and examination of the patient, coordination of care with the medical staff and if applicable referring physicians, as well as creation of the medical record PQRS Measure Charge Sheet PQRS Narrative: Smoking Status Current every day smoker Narcotic Agreement Date Signed 03/12/21 Pain Intensity [Lower Back] 5 Scale Used Numeric (1 - 10) Hx Alcohol Use (MH) No Home Medications: Ambulatory Orders Loratadine [Claritin] 10 mg PO DAILY 11/03/16 Montelukast Sodium [Singulair] 10 mg PO HS 11/03/16 Propranolol [Inderal] 60 mg PO BID 11/03/16 Naproxen 500 mg PO BID 06/28/19 lisinopriL [Zestril] 20 mg PO HS 10/24/19 metFORMIN HCL [Glucophage] 500 mg PO BID 10/24/19 Escitalopram [Lexapro] 10 mg PO DAILY 04/16/20 Baclofen [Lioresal] 5 mg PO TID PRN #90 tablet 09/24/21 HYDROcodone/APAP 5-325MG [Acosta 5-325] 1 tab PO Q8HR PRN 30 Days #90 tab 09/24/21 HYDROcodone/APAP 5-325MG [Acosta 5-325] 1 tab PO Q8HR PRN 30 Days #90 tab 10/22/21 HYDROcodone/APAP 5-325MG [Acosta 5-325] 1 tab PO Q8HR PRN 30 Days #90 tab 10/22/21
[2021-10-22 11:50] VITALS: BP 115/78; PULSE 62; RESP 16; TEMP 98.1
== END ==
LOC: PNWHC3 08:28
PROVIDERS: ATTEND Physician Assistant Medical
DX: G89.29 Other chronic pain (principal); M51.36 Other intervertebral disc degeneration, lumbar region; M47.816 Spondylosis without myelopathy or radiculopathy, lumbar region; F17.200 Nicotine dependence, unspecified, uncomplicated; Z79.891 Long term (current) use of opiate analgesic
CPT/HCPCS: 99211

== ENCOUNTER → 2022-01-14 | Outpatient (CLI) | payer OTHER ==
--- NOTE | 2022-01-14 09:12 | P.PN ---
Subjective Progress Note Date: 01/14/22 Principal diagnosis: A 46 yr old female with a history of severe and chronic low back pain secondary to lumbar degenerative disc diseases and lumbar spondylosis with facet arthropathy presents today for medication refills. Pain level is currently at 6 out of 10 in intensity, dull, achy, sore in the lower aspects of her lumbar spine with shooting pain down the lower extremities. Pain is provoked by bending, twisting and lifting. Pain is alleviated with patient's (Rarden 5/325 twice a day), repositioning and rest. Patient states physical therapy integrated with massage "a long time ago" made her pain worse. She also denies topical use as she states are ineffective. Interventional pain procedures completed include L Lumbar TPIs, Lumbar RFA Patient is currently on Patient denies any side effects of the medication(s), denies excessive drowsiness or sleepiness, denies suicidal ideation and reports that the current pain medication is helping to control the pain and improve activities of daily living. Patient denies any motor or sensory deficits. Patient denies any fever or night sweats, denies any change in the bowel movements or urination. Physical Examination: -Constitutional: Cooperative. Not in acute distress . -HEENT: Neck is supple. No lymphadenopathy. No thyromegaly. Normal thyroid size. Eyes: No ptosis , no icterus, no photophobia. ENT: No auditory deficits. Normal oropharynx. No Thrush. - Respiratory: Chest clear to auscultations bilaterally. No wheezing. No rhonchi. - Cardiovascular: Regular rate and rhythm. S1 / S2 , no S3 , no S4. - Gastrointestinal: Abdomen soft no tenderness. Bowel sounds positive in all four quadrants. No organomegaly. - Genitourinary: Deferred. - Neurologic: Cranial nerve II to XII intact. No focal neurological deficits. - Psychatric: Alert & oriented x 3. Matching mood & appropriate affect. Judgment and insight intact. - Lymphatic: No Lymphadenopathy. - Musculoskeletal: Cervical spine: Muscle bulk/ tone/ strength in the bilateral upper extremities normal Vertebral body tenderness to palpation over Facet loading test positive Thoracic spine Muscle bulk / tone/ strength in the bilateral paraspinal muscles normal Vertebral body tender to palpation over Facet loading test positive Lumbar spine: Motor bulk/ tone/ strength lower extremities , thigh and legs : 5/5 Deep tendon reflexes : Normal Knee Jerk. Normal Ankle Jerk . Vertebral body tenderness to palpation over L4, L5 Lumbar Facet Loading Test positive Straight Leg Raise: positive at 30 degrees right side/ left side Gaenslen's Test positive Sacral spine : Severe tenderness over the Sacroiliac joint: right side / left side Range of motion: Flexion of the lumbar spine <60 degrees Range of motion: Extension of the lumbar spine <20 degrees Gaenslen's Test positive Darin's Test positive Silke test: positive right side / left side Thigh Thrust Test Sacral Thrust Test Assessment and plan: Chronic low back pain secondary to lumbar degenerative disc disease , lumbar spondylosis with facet arthropathy without myelopathy Medication Rarden 5/325mg was stepped down from #90 to #60 per month as pt did not provide UDS and her blood tox screen came back negative. She cancelled her follow up appt as she stated she had stomach flu symptoms. Today, we are collecting urine for UDS. Notified pt that if her tox screen today returns negative, this clinic will no longer prescribe narcotics to her. Pt acknowledged understanding. Chronic and current use of high-risk medication (Opioids). The patient was counseled about risk of opioid use, psychological risk associated with opioids and was orally counseled to not overuse , divert or sell medications. Pt is to store medication in a safe location. The patient is counseled against driving while using narcotic medications and also not to use alcohol or any illicit recreational drugs. Patient verbalized understanding that the lack of compliance will result in failure to renew narcotic prescription(s) as well as possible discharge from the clinic Diagnoses, prognosis and treatment options including but not limited to physical therapy, surgical interventions, interventional therapies and medication management including narcotics and adjuvant medication were discussed. All patient questions answered MAPS reviewed and it was appropriate. UDS collected today 01/14/22 Prescription refill for Rarden 5/325mg #60 w 1 refill. I have spent 31 minutes on patient care today. Dr Alaniz was available by phone for the evaluation of this patient. The time was used to review the medical records including relevant urine studies and Prescription history (MAPs), review of the available imaging, evaluation and examination of the patient, coordination of care with the medical staff and if applicable referring physicians, as well as creation of the medical record PQRS Measure Charge Sheet PQRS Narrative: Smoking Status Current every day smoker Narcotic Agreement Date Signed 03/12/21 Hx Alcohol Use (MH) No Home Medications: Ambulatory Orders Loratadine [Claritin] 10 mg PO DAILY 11/03/16 Montelukast Sodium [Singulair] 10 mg PO HS 11/03/16 Propranolol [Inderal] 60 mg PO BID 11/03/16 Naproxen 500 mg PO BID 06/28/19 lisinopriL [Zestril] 20 mg PO HS 10/24/19 metFORMIN HCL [Glucophage] 500 mg PO BID 10/24/19 Escitalopram [Lexapro] 10 mg PO DAILY 04/16/20 Baclofen [Lioresal] 5 mg PO TID PRN #90 tablet 09/24/21 HYDROcodone/APAP 5-325MG [Rarden 5-325] 1 tab PO Q8HR PRN 30 Days #90 tab 10/22/21 HYDROcodone/APAP 5-325MG [Rarden 5-325] 1 tab PO Q8HR PRN 30 Days #90 tab 10/22/21 HYDROcodone/APAP 5-325MG [Rarden 5-325] 1 tab PO Q12HR PRN 30 Days #60 tab 12/17/21
[2022-01-14 09:34] VITALS: BP 159/92; PULSE 63; RESP 17; TEMP 98.1
== END ==
LOC: PNWHC3 08:26
PROVIDERS: ATTEND Specialist
DX: M51.36 Other intervertebral disc degeneration, lumbar region (principal); M47.816 Spondylosis without myelopathy or radiculopathy, lumbar region; G89.29 Other chronic pain; Z79.891 Long term (current) use of opiate analgesic; F17.200 Nicotine dependence, unspecified, uncomplicated
CPT/HCPCS: 80307; G0482; G0463; 99212

== ENCOUNTER → 2022-03-11 | Outpatient (CLI) | payer OTHER ==
[2022-03-11 08:52] VITALS: BP 128/81; PULSE 62; RESP 18; TEMP 98.4
--- NOTE | 2022-03-11 09:02 | P.PAINPG ---
PQRS Measure Charge Sheet Comment: A 46 yr old female with a history of severe and chronic low back pain secondary to lumbar degenerative disc diseases and lumbar spondylosis with facet arthropathy presents today for medication refills. Pain level is 7/10 in intensity, constant, throbbing, sharp/ shooting towards L & R of midline. Pain is provoked by walking/standing/sitting consecutively for periods of 30 min or more. Pain is alleviated with PT in 2019, massage therapy integrated with PT, ice, medications (Boss), topicals, repositioning and rest. Interventional pain procedures completed include Lumbar RFA, Lumbar TPIs Patient is currently on Boss 5/325mg #60 Patient denies any side effects of the medication(s), denies excessive drowsiness or sleepiness, denies suicidal ideation and reports that the current pain medication is helping to control the pain and improve activities of daily living. Patient denies any motor or sensory deficits. Patient denies any fever or night sweats, denies any change in the bowel movements or urination. Physical Examination: -Constitutional: Cooperative. Not in acute distress . - Neurologic: Cranial nerve II to XII intact. No focal neurological deficits. - Psychatric: Alert & oriented x 3. Matching mood & appropriate affect. Judgment and insight intact. - Musculoskeletal: Cervical spine: Muscle bulk/ tone/ strength in the bilateral upper extremities normal Vertebral body tenderness to palpation over Spurling test positive Distraction test positive Facet loading test positive Thoracic spine Muscle bulk / tone/ strength in the bilateral paraspinal muscles normal Vertebral body tender to palpation over Facet loading test positive Lumbar spine: Motor bulk/ tone/ strength lower extremities , thigh and legs : 5/5 Deep tendon reflexes : Normal Knee Jerk. Normal Ankle Jerk . Vertebral body tenderness to palpation over Lumbar Facet Loading Test positive over BL L4-L5, L5-S1 w jump reflex Straight Leg Raise: positive at 30 degrees right side/ left side Gaenslen's Test positive Sacral spine : Severe tenderness over the Sacroiliac joint: right side / left side Range of motion: Flexion of the lumbar spine <60 degrees Range of motion: Extension of the lumbar spine <20 degrees Gaenslen's Test positive Darin's Test positive Silke test: positive right side / left side Thigh Thrust Test Sacral Thrust Test Assessment and plan: Chronic low back pain secondary to lumbar degenerative disc disease , lumbar spondylosis with facet arthropathy without myelopathy Recommendation of BL RFA L4-L5, L5-S1. It has been years since her last RFA of the affected levels. Risks, benefits of procedure discussed and pt verbalized understanding. Denies anticoagulant use. Admits to a medical history of diabetes. Protocol for discontinuation/ continuation of medications priti procedure discussed. Chronic and current use of high-risk medication (Opioids). The patient was counseled about risk of opioid use, psychological risk associated with opioids and was orally counseled to not overuse , divert or sell medications. Pt is to store medication in a safe location. The patient is counseled against driving while using narcotic medications and also not to use alcohol or any illicit recreational drugs. Patient verbalized understanding that the lack of compliance will result in failure to renew narcotic prescription(s) as well as possible discharge from the clinic Diagnoses, prognosis and treatment options including but not limited to physical therapy, surgical interventions, interventional therapies and medication management including narcotics and adjuvant medication were discussed. All patient questions answered MAPS reviewed and it was appropriate. UDS from 01/14/22 reviewed and consistent Prescription increase for Boss 7.5/325mg #60 w 1 refill I have spent less than 30 minutes on patient care today. Dr Alaniz was available by phone for the evaluation of this patient. The time was used to review the medical records including relevant urine studies and Prescription history (MAPs), review of the available imaging, evaluation and examination of the patient, coordination of care with the medical staff and if applicable referring physicians, as well as creation of the medical record - Pain Location Bilateral Lower Back Non-Pharmacological Interventions: Ice, Inactivity, Massage, Physical Therapy Pharmacological Interventions: Block, Epidural, Scheduled Medication, Topical Medication PQRS Narrative: Smoking Status Current every day smoker Narcotic Agreement Date Signed 03/12/21 Hx Alcohol Use (MH) No Home Medications: Ambulatory Orders Loratadine [Claritin] 10 mg PO DAILY 11/03/16 Montelukast Sodium [Singulair] 10 mg PO HS 11/03/16 Propranolol [Inderal] 60 mg PO BID 11/03/16 Naproxen 500 mg PO BID 06/28/19 lisinopriL [Zestril] 20 mg PO HS 10/24/19 metFORMIN HCL [Glucophage] 500 mg PO BID 10/24/19 Escitalopram [Lexapro] 10 mg PO DAILY 04/16/20 Baclofen [Lioresal] 5 mg PO TID PRN #90 tablet 09/24/21 HYDROcodone/APAP 5-325MG [Boss 5-325] 1 tab PO Q8HR PRN 30 Days #90 tab 10/22/21 HYDROcodone/APAP 5-325MG [Boss 5-325] 1 tab PO Q12HR PRN 30 Days #60 tab 01/14/22 HYDROcodone/APAP 5-325MG [Boss 5-325] 1 tab PO Q12HR PRN 30 Days #60 tab 01/14/22 Controlled Substance Measures - Controlled Substance Measures Is patient prescribed a controlled substance at discharge?: Yes When asked, does pt state using other controlled substances?: No If prescribed controlled substance>3 days was MAPS reviewed?: Yes If Rx opioid, was Start Talking consent form obtained?: Yes Was information provided regarding opioid addiction?: Yes
== END ==
LOC: PNWHC3 08:14
PROVIDERS: ATTEND Specialist
DX: M51.36 Other intervertebral disc degeneration, lumbar region (principal); M47.816 Spondylosis without myelopathy or radiculopathy, lumbar region; G89.29 Other chronic pain; Z79.891 Long term (current) use of opiate analgesic; F17.200 Nicotine dependence, unspecified, uncomplicated
CPT/HCPCS: 99211

== ENCOUNTER 2022-04-17 08:25 | Day surgery (SDC) | payer OTHER ==
[2022-04-16 11:03] VITALS: BMI 48.6
[2022-04-17 08:59] VITALS: TEMP 97.4
[2022-04-17] MEDS ORDERED: LACTATED RINGERS 1,000 ML IV SCH (09:00)
[2022-04-17 09:13] LABS: Glucose,Whole Blood 259 mg/dL (70-110)
[2022-04-17] MEDS ORDERED: fentaNYL (PF) 50 MCG/ML 2 ML AMP ONE (09:32)
[2022-04-17] MEDS ORDERED: MIDAZOLAM 2 MG/2 ML VIAL ONE (09:32)
[2022-04-17] MEDS ORDERED: ROPIVACAINE 5MG/ML 20ML VIAL ONE (09:32)
[2022-04-17] MEDS ORDERED: TRIAMCINOLONE ACETONIDE 40 MG/ML 1 ML VIAL ONE (09:32)
--- NOTE | 2022-04-17 10:02 | P.PCN ---
Date of Procedure: 04/17/22 Description of Procedure: Pre- and Post-operative Diagnosis: Lumbar facet arthropathy, and lumbar spon dylosis without myelopathy. Procedure: Bilateral L4-5 radiofrequency thermocoagulation of medial branch under fluoroscopic guidance Bilateral L5-S1 dorsal ramus radiofrequency thermocoagulation under fluoroscopic guidance Surgeon: Kaylee Godoy Anesthesia: Local: 1% Lidocaine, IV sedation : Midazolam 2 mg, and fentanyl 100 micrograms. Complications: None Estimated blood loss: None. Specimen removed: None Fluoroscopic image: Saved to patient electronic medical records. Indications for Procedure: The patient is well known to pain clinic for his chronic low back pain management. The lumbar facet loading test was positive with a clinical diagnosis of lumbar facet arthropathy. Patient had marked decrease in pain after the diagnostic medial branch procedure. Came here for radiofrequency ablation for longer pain relief. PROCEDURE DESCRIPTION: The patient was seen and identified in the preoperative area. Risks, benefits, complications, and alternatives were discussed with the patient. The patient agreed to proceed with the procedure and signed the consent. IV was started. Vital signs were stable. Patient was taken to the procedure room and timeout was completed. The patient was placed in the prone position on procedure table and a pillow was placed under the abdomen to reduce lumbar lordosis. The lumbosacral area was prepped with ChloraPrep 2 and draped in the usual sterile fashion. Critical pause was taken. Vital signs were closely monitored during the procedure. The fluoroscopic camera was placed in the anteroposterior position to identify the junction of superior articular process and its corresponding injection with its transverse process of Right side L4, L5, S1, which were anesthetized with 1% lidocaine. We used 18-gauge 100-mm curved X6 , sharp radiofrequency cannula with 10-mm active tip for the procedure. The first cannula was guided by fluoroscopy to the S1 superior articular process and its corresponding junction with its ala. The second cannula was guided by fluoroscopy into the L5 superior articular process and its corresponding junction with its transverse process and pedicle. The third cannula was guided by fluoroscopy into the L4 SAP and its corresponding junction with its transverse process and its pedicle. After confirmation of needle tip position on oblique view, each site underwent motor testing at 2 Hz and 0 to 2.5 volts, and there was good motor stimulation in the back and no radicular symptoms or paresthesias. After confirmation of motor testing, 0.5 mL of block solution injected at each site . Block solution contained 4 mL of 0.5% ropivacaine preservative free mixed with 40 MG of Kenalog. At this time, each site was ablated using continuous radiofrequency mode at 80 degrees Celsius for 90 seconds at each level. At the end of the procedure, each needle was retracted approximately 1 cm and the skin was infiltrated with 0.5% ropivacaine preservative free 1 ml at each site. Skin was cleansed and bandages were applied. Entire procedure repeated on the left side. Skin was cleansed and bandages were applied. Disposition : The patient tolerated the procedure very well. The patient was transferred to the recovery room and remained stable until discharged home. The patient was given detailed discharge instructions for infection, bleeding, and increased pain at the injection site, and was advised to seek immediate medical attention should significant side effects develop. The patient will be scheduled with Pain Clinic within 4 weeks.
[2022-04-17] MEDS ORDERED: IV FLUID CONTINUATION 1,000 ML IV ONE (10:04)
[2022-04-17 10:19] LABS: Glucose,Whole Blood 231 mg/dL (70-110)
[2022-04-17 10:20] VITALS: BP 116/64; PULSE 73; RESP 15
--- NOTE | 2022-04-17 10:50 | FL ---
Intraoperative/procedural fluoroscopic services were provided. Total fluoroscopy time is 15.3 seconds with a total of 8 submitted images to PACS. Please see the operative/procedural note for further det ails.
== END 2022-04-17 10:34 | disposition home or self-care (01) ==
LOC: ORPAIN 08:25
DX: M47.816 Spondylosis without myelopathy or radiculopathy, lumbar region (principal); G89.29 Other chronic pain; E11.9 Type 2 diabetes mellitus without complications; J45.909 Unspecified asthma, uncomplicated; F17.200 Nicotine dependence, unspecified, uncomplicated; K21.9 Gastro-esophageal reflux disease without esophagitis; F32.A Depression, unspecified; M19.90 Unspecified osteoarthritis, unspecified site; G43.909 Migraine, unspecified, not intractable, without status migrainosus; Z79.899 Other long term (current) drug therapy; Z79.1 Long term (current) use of non-steroidal anti-inflammatories (NSAID); Z79.84 Long term (current) use of oral hypoglycemic drugs
CPT/HCPCS: 81025; 84703; 64635; 64636 ×2; J2250; J3301; J3010; J2795

== ENCOUNTER → 2022-05-06 | Outpatient (CLI) | payer OTHER ==
[2022-05-06 08:36] VITALS: BP 136/69; PULSE 54; RESP 18; TEMP 97.6
--- NOTE | 2022-05-06 14:36 | P.PAINPG ---
PQRS Measure Charge Sheet Comment: A 46 yr old female with a history of severe and chronic low back pain secondary to lumbar degenerative disc diseases and lumbar spondylosis with facet arthropathy without myelopathy presents today for medication refills and evaluation of RFA BL L3-5. Pt states she experienced 75% pain relief s/p procedure. Pain level is currently at 6/10 in intensity, constant, localized in the lower lumbar spine,throbbing, sharp in character w shooting towards the L & R flanks. Pain is provoked by sitting/standing/walking for periods of 30 min or more, and bending/lifting. Pain is alleviated with PT in 2020 x 6 wks, heat & ice which are ineffective, medications ([place]), topicals which are ineffective, repositioning and rest. Interventional pain procedures completed include BL RFA L3-L5 Patient is currently on [place] 7.5/325mg #60 Patient denies any side effects of the medication(s), denies excessive drowsines s or sleepiness, denies suicidal ideation and reports that the current pain medication is helping to control the pain and improve activities of daily living. Patient denies any motor or sensory deficits. Patient denies any fever or night sweats, denies any change in the bowel movements or urination. Physical Examination: -Constitutional: Cooperative. Not in acute distress . - Neurologic: Cranial nerve II to XII intact. No focal neurological deficits. - Psychatric: Alert & oriented x 3. Matching mood & appropriate affect. Judgment and insight intact. - Musculoskeletal: Cervical spine: Muscle bulk/ tone/ strength in the bilateral upper extremities normal Vertebral body tenderness to palpation over Spurling test positive Distraction test positive Facet loading test positive Thoracic spine Muscle bulk / tone/ strength in the bilateral paraspinal muscles normal Vertebral body tender to palpation over Facet loading test positive Lumbar spine: Motor bulk/ tone/ strength lower extremities , thigh and legs : 5/5 Deep tendon reflexes : Normal Knee Jerk. Normal Ankle Jerk . Vertebral body tenderness to palpation over L4 Lumbar Facet Loading Test positive Straight Leg Raise: positive at 30 degrees right side/ left side Gaenslen's Test positive Sacral spine : Severe tenderness over the Sacroiliac joint: right side / left side Range of motion: Flexion of the lumbar spine <60 degrees Range of motion: Extension of the lumbar spine <20 degrees Gaenslen's Test positive Darin's Test positive Silke test: positive right side / left side Thigh Thrust Test Sacral Thrust Test Assessment and plan: Chronic low back pain secondary to lumbar degenerative disc disease , lumbar spondylosis with facet arthropathy without myelopathy Pt exhibited sufficient and substantial pain relief s/p procedure. Chronic and current use of high-risk medication (Opioids). The patient was counseled about risk of opioid use, psychological risk associated with opioids and was orally counseled to not overuse , divert or sell medications. Pt is to store medication in a safe location. The patient is counseled against driving while using narcotic medications and also not to use alcohol or any illicit recreational drugs. Patient verbalized understanding that the lack of compliance will result in failure to renew narcotic prescription(s) as well as possible discharge from the clinic Diagnoses, prognosis and treatment options including but not limited to physical therapy, surgical interventions, interventional therapies and medication management including narcotics and adjuvant medication were discussed. All patient questions answered MAPS reviewed and it was appropriate. Prescription refill for [place] 7.5/325mg #60 w 1 RF I have spent less than 30 minutes on patient care today. Dr Alaniz was available by phone for the evaluation of this patient. The time was used to review the medical records including relevant urine studies and Prescription history (MAPs), review of the available imaging, evaluation and examination of the patient, coordination of care with the medical staff and if applicable referring physicians, as well as creation of the medical record PQRS Narrative: Smoking Status Current every day smoker Narcotic Agreement Date Signed 03/12/21 Hx Alcohol Use (MH) No Home Medications: Ambulatory Orders Loratadine [Claritin] 10 mg PO DAILY 11/03/16 Montelukast Sodium [Singulair] 10 mg PO HS 11/03/16 Propranolol [Inderal] 60 mg PO BID 11/03/16 Naproxen 500 mg PO BID 06/28/19 lisinopriL [Zestril] 20 mg PO HS 10/24/19 metFORMIN HCL [Glucophage] 500 mg PO BID 10/24/19 Escitalopram [Lexapro] 10 mg PO DAILY 04/16/20 Baclofen [Lioresal] 5 mg PO TID PRN #90 tablet 09/24/21 HYDROcodone/APAP 7.5-325MG [[place] 7.5-325] 1 tab PO Q12HR PRN 30 Days #60 tab 05/06/22 HYDROcodone/APAP 7.5-325MG [[place] 7.5-325] 1 tab PO Q12HR PRN 30 Days #60 tab 05/06/22 Controlled Substance Measures - Controlled Substance Measures Is patient prescribed a controlled substance at discharge?: Yes When asked, does pt state using other controlled substances?: No If prescribed controlled substance>3 days was MAPS reviewed?: Yes If Rx opioid, was Start Talking consent form obtained?: Yes Was information provided regarding opioid addiction?: Yes
== END ==
LOC: PNWHC3 07:59
PROVIDERS: ATTEND Anesthesiology
DX: M51.36 Other intervertebral disc degeneration, lumbar region (principal); M47.816 Spondylosis without myelopathy or radiculopathy, lumbar region; G89.29 Other chronic pain; Z79.891 Long term (current) use of opiate analgesic; F17.200 Nicotine dependence, unspecified, uncomplicated
CPT/HCPCS: 99211

== ENCOUNTER → 2022-07-01 | Outpatient (CLI) | payer OTHER ==
[2022-07-01 09:23] VITALS: BP 150/90; PULSE 57; RESP 18; TEMP 97.9
--- NOTE | 2022-07-01 10:36 | P.PAINPG ---
Objective - Vital Signs Vital signs: Intake & Output 06/30/22 07/01/22 07/01/22 18:59 06:59 18:59 Weight 117.934 kg PQRS Measure Charge Sheet Comment: A 46 yr old female with a history of severe and chronic low back pain secondary to lumbar degenerative disc diseases and lumbar spondylosis with facet arthropathy without myelopathy presents today for medication refills. Pain level is currently at 7/10 in intensity, constant, localized in the lower lumbar spi ne, throbbing in character w shooting towards the R knee and BL feet w BL feet occasional numbness. Pain is provoked by sitting/ standing/ walking for periods of 30 min or more. Pain is alleviated with PT x 6 wks in 2020, heat, ice, medications ([place]), topicals, injections, repositioning and rest. Pt has stated LESIs in the past were ineffective. Interventional pain procedures completed include BL RFA L3-L5 x3 Patient is currently on [place] 7.5/325mg #60 Patient denies any side effects of the medication(s), denies excessive drowsiness or sleepiness, denies suicidal ideation and reports that the current pain medication is helping to control the pain and improve activities of daily living. Patient denies any motor or sensory deficits. Patient denies any fever or night sweats, denies any change in the bowel movements or urination. Physical Examination: -Constitutional: Cooperative. Not in acute distress . - Neurologic: Cranial nerve II to XII intact. No focal neurological deficits. - Psychatric: Alert & oriented x 3. Matching mood & appropriate affect. Judgment and insight intact. - Musculoskeletal: Cervical spine: Muscle bulk/ tone/ strength in the bilateral upper extremities normal Vertebral body tenderness to palpation over Spurling test positive Distraction test positive Facet loading test positive Thoracic spine Muscle bulk / tone/ strength in the bilateral paraspinal muscles normal Vertebral body tender to palpation over Facet loading test positive Lumbar spine: Motor bulk/ tone/ strength lower extremities , thigh and legs : 5/5 Deep tendon reflexes : Normal Knee Jerk. Normal Ankle Jerk . Vertebral body tenderness to palpation over L4, L5 Lumbar Facet Loading Test positive Straight Leg Raise: positive at 30 degrees right side/ left side Gaenslen's Test positive Sacral spine : Severe tenderness over the Sacroiliac joint: right side / left side Range of motion: Flexion of the lumbar spine <60 degrees Range of motion: Extension of the lumbar spine <20 degrees Gaenslen's Test positive Darin's Test positive Silke test: positive right side / left side Thigh Thrust Test Sacral Thrust Test Assessment and plan: Chronic low back pain secondary to lumbar degenerative disc disease , lumbar spondylosis with facet arthropathy without myelopathy Chronic and current use of high-risk medication (Opioids). The patient was counseled about risk of opioid use, psychological risk associated with opioids and was orally counseled to not overuse , divert or sell medications. Pt is to store medication in a safe location. The patient is counseled against driving while using narcotic medications and also not to use alcohol or any illicit recreational drugs. Patient verbalized understanding that the lack of compliance will result in failure to renew narcotic prescription(s) as well as possible discharge from the clinic Diagnoses, prognosis and treatment options including but not limited to physical therapy, surgical interventions, interventional therapies and medication management including narcotics and adjuvant medication were discussed. All patient questions answered MAPS reviewed and it was appropriate. UDS today 07/01/22 Prescription refill for [place] 7.5/325mg #60 w 1 RF I have spent less than 30 minutes on patient care today. Dr Alaniz was available by phone for the evaluation of this patient. The time was used to review the medical records including relevant urine studies and Prescription history (MAPs), review of the available imaging, evaluation and examination of the patient, coordination of care with the medical staff and if applicable referring physicians, as well as creation of the medical record PQRS Narrative: Smoking Status Current every day smoker Narcotic Agreement Date Signed 03/12/21 Hx Alcohol Use (MH) No Home Medications: Ambulatory Orders Loratadine [Claritin] 10 mg PO DAILY 11/03/16 Montelukast Sodium [Singulair] 10 mg PO HS 11/03/16 Propranolol [Inderal] 60 mg PO BID 11/03/16 Naproxen 500 mg PO BID 06/28/19 lisinopriL [Zestril] 20 mg PO HS 10/24/19 metFORMIN HCL [Glucophage] 500 mg PO BID 10/24/19 Escitalopram [Lexapro] 10 mg PO DAILY 04/16/20 Baclofen [Lioresal] 5 mg PO TID PRN #90 tablet 09/24/21 HYDROcodone/APAP 7.5-325MG [[place] 7.5-325] 1 tab PO Q12HR PRN 30 Days #60 tab 07/01/22 HYDROcodone/APAP 7.5-325MG [[place] 7.5-325] 1 tab PO Q12HR PRN 30 Days #60 tab 07/01/22 Controlled Substance Measures - Controlled Substance Measures Is patient prescribed a controlled substance at discharge?: Yes When asked, does pt state using other controlled substances?: No If prescribed controlled substance>3 days was MAPS reviewed?: Yes If Rx opioid, was Start Talking consent form obtained?: Yes Was information provided regarding opioid addiction?: Yes
== END ==
LOC: PNWHC3 08:11
PROVIDERS: ATTEND Specialist
DX: M47.816 Spondylosis without myelopathy or radiculopathy, lumbar region (principal); M51.36 Other intervertebral disc degeneration, lumbar region; G89.29 Other chronic pain; Z79.891 Long term (current) use of opiate analgesic; F17.200 Nicotine dependence, unspecified, uncomplicated
CPT/HCPCS: 80307; G0482; G0463; 99211

== ENCOUNTER → 2022-08-26 | Outpatient (CLI) | payer OTHER ==
[2022-08-26 08:59] VITALS: BP 111/66; PULSE 59; RESP 18; TEMP 98.4
--- NOTE | 2022-08-26 15:32 | P.PAINPG ---
PQRS Measure Charge Sheet Comment: A 46 yr old female with a history of severe and chronic low back pain secondary to lumbar DDD and spondylosis with facet arthropathy without myelopathy presents today for medication refills. Pain level is currently at 6 /10 in intensity, constant, localized in the mid to lower lumbar spine, dull/ achy in character w shooting towards the BLEs. Pain is provoked by standing/ walking for periods of 20 min or more, bending, twisting. Pain is alleviated with massage at home, PT in the past which was ineffective, laying supine and rest. Patient is currently on [place] 7.5/325mg#60 Patient denies any side effects of the medication(s), denies excessive drowsiness or sleepiness, denies suicidal ideation and reports that the current pain medication is helping to control the pain and improve activities of daily living. Patient denies any motor or sensory deficits. Patient denies any fever or night sweats, denies any change in the bowel movements or urination. Physical Examination: -Constitutional: Cooperative. Not in acute distress . - Neurologic: Cranial nerve II to XII intact. No focal neurological de ficits. - Psychatric: Alert & oriented x 3. Matching mood & appropriate affect. Judgment and insight intact. - Musculoskeletal: Cervical spine: Muscle bulk/ tone/ strength in the bilateral upper extremities normal Vertebral body tenderness to palpation over Spurling test positive Distraction test positive Facet loading test positive Thoracic spine Muscle bulk / tone/ strength in the bilateral paraspinal muscles normal Vertebral body tender to palpation over Facet loading test positive Lumbar spine: Motor bulk/ tone/ strength lower extremities , thigh and legs : 5/5 Deep tendon reflexes : Normal Knee Jerk. Normal Ankle Jerk . Vertebral body tenderness to palpation over L3, L4, L5 Lumbar Facet Loading Test positive Straight Leg Raise: positive at 30 degrees right side/ left side Gaenslen's Test positive Sacral spine : Severe tenderness over the Sacroiliac joint: right side / left side Range of motion: Flexion of the lumbar spine <60 degrees Range of motion: Extension of the lumbar spine <20 degrees Gaenslen's Test positive Silke test: positive right side / left side Thigh Thrust Test Sacral Thrust Test Assessment and plan: Chronic low back pain secondary to lumbar degenerative disc disease, spondylosis with facet arthropathy without myelopathy Chronic and current use of high-risk medication (Opioids). The patient was counseled about risk of opioid use, psychological risk associated with opioids and was orally counseled to not overuse , divert or sell medications. Pt is to store medication in a safe location. The patient is counseled against driving while using narcotic medications and also not to use alcohol or any illicit recreational drugs. Patient verbalized understanding that the lack of compliance will result in failure to renew narcotic prescription(s) as well as possible discharge from the clinic Diagnoses, prognosis and treatment options including but not limited to physical therapy, surgical interventions, interventional therapies and medication management including narcotics and adjuvant medication were discussed. All patient questions answered MAPS reviewed and it was appropriate. UDS from 07/01/22 reviewed and consistent Prescription refill for [place] 7.5/325mg #60 , Baclofen 5 mg #90 I have spent less than 30 minutes on patient care today. Dr Alaniz was available by phone for the evaluation of this patient. The time was used to review the medical records including relevant urine studies and Prescription history (MAPs), review of the available imaging, evaluation and examination of the patient, coordination of care with the medical staff and if applicable referring physicians, as well as creation of the medical record PQRS Narrative: Smoking Status Current every day smoker Narcotic Agreement Date Signed 03/11/22 Hx Alcohol Use (MH) No Home Medications: Ambulatory Orders Loratadine [Claritin] 10 mg PO DAILY 11/03/16 Montelukast Sodium [Singulair] 10 mg PO HS 11/03/16 Propranolol [Inderal] 60 mg PO BID 11/03/16 Naproxen 500 mg PO BID 06/28/19 lisinopriL [Zestril] 20 mg PO HS 10/24/19 metFORMIN HCL [Glucophage] 500 mg PO BID 10/24/19 Escitalopram [Lexapro] 10 mg PO DAILY 04/16/20 Baclofen [Lioresal] 5 mg PO TID PRN #90 tablet 09/24/21 HYDROcodone/APAP 7.5-325MG [[place] 7.5-325] 1 tab PO Q12HR PRN 30 Days #60 tab 07/01/22 HYDROcodone/APAP 7.5-325MG [[place] 7.5-325] 1 tab PO Q12HR PRN 30 Days #60 tab 07/01/22 Controlled Substance Measures - Controlled Substance Measures Is patient prescribed a controlled substance at discharge?: Yes When asked, does pt state using other controlled substances?: No If prescribed controlled substance>3 days was MAPS reviewed?: Yes If Rx opioid, was Start Talking consent form obtained?: Yes Was information provided regarding opioid addiction?: Yes
== END ==
LOC: PNWHC3 08:29
PROVIDERS: ATTEND Specialist
DX: M47.816 Spondylosis without myelopathy or radiculopathy, lumbar region (principal); M51.36 Other intervertebral disc degeneration, lumbar region; Z79.891 Long term (current) use of opiate analgesic; F17.200 Nicotine dependence, unspecified, uncomplicated
CPT/HCPCS: 99211

== ENCOUNTER 2022-11-26 08:21 | Day surgery (SDC) | payer OTHER ==
[2022-11-24 15:29] VITALS: BMI 51.2
[2022-11-26] MEDS ORDERED: LIDOCAINE 1% (10MG/ML) FOR IV START INTRADERMA ONE (09:22)
[2022-11-26 09:27] LABS: Glucose,Whole Blood 207 mg/dL (70-110)
[2022-11-26 09:30] VITALS: TEMP 97.6
[2022-11-26] MEDS ORDERED: LACTATED RINGERS 1,000 ML IV SCH (09:30)
[2022-11-26] MEDS ORDERED: methylPREDNISolone ACETATE 40 MG/ML 1 ML VIAL ONE (09:32)
[2022-11-26] MEDS ORDERED: fentaNYL (PF) 50 MCG/ML 2 ML AMP ONE (09:32)
[2022-11-26] MEDS ORDERED: MIDAZOLAM 2 MG/2 ML VIAL ONE (09:32)
[2022-11-26] MEDS ORDERED: ROPIVACAINE 5 MG/ML 20 ML AMPULE ONE (09:32)
--- NOTE | 2022-11-26 09:49 | P.PCN ---
Date of Procedure: 11/26/22 Description of Procedure: Pre and postop diagnosis: Myofascial pain syndrome Procedure: Trigger point injections X 13 Muscle group X bilateral lumbar paraspinal, and bilateral iliocostalis lumborum muscle Surgeon: Kaylee Montgomery Anesthesia: Versed 2 mg, and fentanyl 50 g sedation Supervision start time: 935 Sedation supervision ended time: 941 Complications: None Estimated blood loss: None Specimen removed: None Procedure indications: Patient had a history of myofascial pain syndrome. Patient tried conservative therapy. Came here for intervention procedure for better pain relief. Procedure description: Patient was seen and identified in the holding area risk benefits competitions alternative discussed with the patient. Patient agreed to proceed for the procedure signed the consent. Patient taken to the procedure area. Timeout was completed. A total number of 13 - trigger point area was marked with a sterile marker. After ChloraPrep 2 used to clean the area. Critical pause was taken. Using 25-gauge 1-1/2 inch needle b[address] half way. Needle entered in each market site one mL of block solution injected at each level. The block solution containing 15ml of 0.5% preservative-free ropivacaine with Depo-Medrol 40 MG. Needle removed intact skin cleaned and Band-Aid applied. Patient tolerated the procedure well. Disposition: Patient discharge home after meeting the discharge criteria from the recovery. Patient scheduled to follow up with the pain clinic in 4 weeks for follow-up visit.
[2022-11-26] MEDS ORDERED: IV FLUID CONTINUATION 700 ML IV ONE (09:50)
[2022-11-26 10:22] VITALS: BP 116/62; PULSE 59; RESP 18
== END 2022-11-26 10:22 | disposition home or self-care (01) ==
LOC: ORPAIN 08:21
DX: M79.18 Myalgia, other site (principal); K21.9 Gastro-esophageal reflux disease without esophagitis; J45.909 Unspecified asthma, uncomplicated; F17.210 Nicotine dependence, cigarettes, uncomplicated; E11.9 Type 2 diabetes mellitus without complications; Z90.49 Acquired absence of other specified parts of digestive tract; Z98.890 Other specified postprocedural states; Z68.43 Body mass index [BMI] 50.0-59.9, adult
CPT/HCPCS: 81025; 20553; J2250; J1030; J3010; J2795

== ENCOUNTER → 2022-12-16 | Outpatient (CLI) | payer OTHER ==
[2022-12-16 11:57] VITALS: BP 150/83; PULSE 56; RESP 12; TEMP 97.5
--- NOTE | 2022-12-16 14:16 | P.PAINPG ---
PQRS Measure Charge Sheet Comment: A 47 yr old female with a history of severe and chronic LBP secondary to lumbar DDD and spondylosis with facet arthropathy without myelopathy presents today for medication refills. Pt states she experienced 55 % pain relief x 5 mo s/p Mar 2022 procedure. Pain level is provoked at 8 /10 in intensity, constant, localized in the R lumbar spine, dull/ achy/ sharp in character w shooting towards the R knee. Pain is provoked by standing/ walking for periods of 15 min or more. Pain is alleviated with PT x 6 wks in 2020 which was ineffective, physician guided home stretching regimen, injections, medications, topicals, laying supine and rest. Interventional pain procedures completed include BL RFA L3-L5 Patient is currently on [place] , Baclofen Patient denies any side effects of the medication(s), denies excessive drowsiness or sleepiness, denies suicidal ideation and reports that the current pain medication is helping to control the pain and improve activities of daily living. Patient denies any motor or sensory deficits. Patient denies any fever or night sweats, denies any change in the bowel movements or urination. Physical Examination: -Constitutional: Cooperative. Not in acute distress . - Neurologic: Cranial nerve II to XII intact. No focal neurological deficits. - Psychatric: Alert & oriented x 3. Matching mood & appropriate affect. Judgment and insight intact. - Musculoskeletal: Cervical spine: Muscle bulk/ tone/ strength in the bilateral upper extremities normal Vertebral body tenderness to palpation over Spurling test positive Distraction test positive Facet loading test positive TTP Thoracic spine Muscle bulk / tone/ strength in the bilateral paraspinal muscles normal Vertebral body tender to palpation over Facet loading test positive TTP Lumbar spine: Motor bulk/ tone/ strength lower extremities , thigh and legs : 5/5 Deep tendon reflexes : Normal Knee Jerk. Normal Ankle Jerk . Vertebral body tenderness to palpation over Lumbar Facet Loading Test positive Straight Leg Raise: positive at 30 degrees right side/ left side Gaenslen's Test positive Sacral spine : Severe tenderness over the Sacroiliac joint: right side / left side Range of motion: Flexion of the lumbar spine <60 degrees Range of motion: Extension of the lumbar spine <20 degrees Gaenslen's Test positive right side / left side Silke test: positive right side / left side Thigh Thrust Test positive right side / left side Sacral Thrust Test positive right side / left side Assessment and plan: Chronic LBP secondary to lumbar DDD, spondylosis with facet arthropathy without myelopathy Recommendation of BL RFA L4-L5, L5-S1. Pt experienced substantial pain relief w prior RFA lumbar spine procedure. Risks, benefits of procedure di scussed and pt verbalized understanding. Admits to anticoagulant use or medical history of diabetes. Protocol for discontinuation/ continuation of medications priti procedure discussed. All questions answered. Chronic and current use of high-risk medication (Opioids). The patient was counseled about risk of opioid use, psychological risk associated with opioids and was orally counseled to not overuse , divert or sell medications. Pt is to store medication in a safe location. The patient is counseled against driving while using narcotic medicati ons and also not to use alcohol or any illicit recreational drugs. Patient verbalized understanding that the lack of compliance will result in failure to renew narcotic prescription(s) as well as possible discharge from the clinic Diagnoses, prognosis and treatment options including but not limited to physical therapy, surgical interventions, interventional therapies and medication management including narcotics and adjuvant medication were discussed. All patient questions answered MAPS reviewed and it was appropriate. UDS collected today 12/16/22. Prescription refill for [place] 7.5/325mg #60 , Baclofen w 1 RF I have spent less than 30 minutes on patient care today. Dr Alaniz was available by phone for the evaluation of this patient. The time was used to review the medical records including relevant urine studies and Prescription history (MAPs), review of the available imaging, evaluation and examination of the patient, coordination of care with the medical staff and if applicable referring physicians, as well as creation of the medical record - Pain Location Bilateral Lower Back Non-Pharmacological Interventions: Inactivity, Position/Reposition Pharmacological Interventions: Scheduled Medication PQRS Narrative: Smoking Status Current every day smoker Narcotic Agreement Date Signed 03/11/22 Hx Alcohol Use (MH) No Home Medications: Ambulatory Orders Loratadine [Claritin] 10 mg PO DAILY 11/03/16 Montelukast Sodium [Singulair] 10 mg PO HS 11/03/16 Propranolol [Inderal] 60 mg PO BID 11/03/16 Naproxen 500 mg PO BID 06/28/19 lisinopriL [Zestril] 20 mg PO HS 10/24/19 metFORMIN HCL [Glucophage] 500 mg PO BID 10/24/19 Escitalopram [Lexapro] 10 mg PO DAILY 04/16/20 Baclofen [Lioresal] 5 mg PO TID PRN 30 Days #90 tablet 12/16/22 HYDROcodone/APAP 7.5-325MG [[place] 7.5-325] 1 tab PO BID PRN 30 Days #60 tab 12/16/22 HYDROcodone/APAP 7.5-325MG [[place] 7.5-325] 1 tab PO Q12HR PRN 30 Days #60 tab 12/16/22 Controlled Substance Measures - Controlled Substance Measures Is patient prescribed a controlled substance at discharge?: Yes
== END ==
LOC: PNWHC3 08:50
PROVIDERS: ATTEND Specialist
DX: M51.36 Other intervertebral disc degeneration, lumbar region (principal); G89.29 Other chronic pain; M47.816 Spondylosis without myelopathy or radiculopathy, lumbar region; Z79.891 Long term (current) use of opiate analgesic; F17.200 Nicotine dependence, unspecified, uncomplicated
CPT/HCPCS: 80307; G0482; G0463; 99212

== ENCOUNTER 2023-01-22 08:42 | Day surgery (SDC) | payer OTHER ==
[2023-01-22] MEDS ORDERED: LACTATED RINGERS 1,000 ML IV ONE (09:39)
[2023-01-22 10:05] VITALS: TEMP 98.2
[2023-01-22] MEDS ORDERED: INSULIN ASPART (NovoLOG) 100 UNIT/ML VIAL SQ ONE (10:05)
[2023-01-22] MEDS ORDERED: methylPREDNISolone ACETATE 40 MG/ML 1 ML VIAL ONE (10:06)
[2023-01-22] MEDS ORDERED: fentaNYL (PF) 50 MCG/ML 2 ML AMP ONE (10:06)
[2023-01-22] MEDS ORDERED: ROPIVACAINE 5 MG/ML 20 ML AMPULE ONE (10:06)
[2023-01-22] MEDS ORDERED: MIDAZOLAM 2 MG/2 ML VIAL ONE (10:06)
[2023-01-22 10:07] LABS: Glucose,Whole Blood 342 mg/dL (70-110)
--- NOTE | 2023-01-22 10:40 | P.PCN ---
Date of Procedure: 01/22/23 Procedure(s) Performed: PREOPERATIVE DIAGNOSIS: 1-Lumbar Spondylosis with Facet Arthropathy without myelopathy. 2- Lumber degenerative disc disease. POSTOPERATIVE DIAGNOSIS: 1- Lumbar Spondylosis with Facet Arthropathy without myelopathy. 2- Lumber degenerative disc disease. PROCEDURES : Bilateral Radiofrequency thermocoagulation, L3 , L4 , and L5 medial branch, with fluoroscopic guidance (fluoroscopy images available in the radiology department) ( to denervate the facet joint at bilateral L4-5 ,and L5-S1 levels ). ANESTHESIA: Monitored anesthesia care as per anesthesia department . EBL: Minimal PROCEDURE INDICATION: The patient with low back pain secondary to lumbar facet arthropathy who had more than 50% relief of her pain with previous diagnostic lumbar medial branch block with bupivacaine. PROCEDURE DESCRIPTION / TECHNIQUE: The patient was seen and identified in the preoperative area. Risks, benefits, complications, including but not limited to risk of infection ,bleeding , allergic reactions to the medications and no complete pain releife , and alternatives were discussed with the patient, the patient agreed to proceed with the procedure and signed the consent. IV was started. Vital signs remained stable throughout the procedure. Patient was taken to the OR and time out was completed. The patient was placed in the prone position on the procedure table. The lumber area was prepped and draped in the usual sterile fashion. . Vital signs were closely monitored during the procedure .IV sedation was used during the procedure to decrease patients anxiety. Using AP and then oblique fluoroscopy, the ``eye of the Steve dog corresponding to the connection between the superior and transverse articular processes of right L3, L4, and L5 were identified, marked, and localized with 1% lidocaine. Subsequently, a 18 -kj radiofrequency cannula with a 10- mm active tip was advanced guided by fluoroscopy to each of the``eyes of the Steve dog at right L3, L4, and L5. Each site then underwent sensory testing at 50 Hz and 0 to 1 volt and motor testing at 2.5 Hz and 0 to 3 volt with local stimulation, but no radicular symptoms down the legs. Thereafter each sites underwent radiofrequency thermocoagulation at 80 degrees celsius for 90 seconds after injecting 0.5 ml of PF Ropivacaine 1ml, then after the thermocoagulation done , 1 ml of the block solution containing Depo-Medrol 20 mg and 3 ml of Ropivacaine 0.5% was injected at the right L3 , L4 , and L5 , levels after negative aspiration of CSF and blood and with no paresthesias. Cannulas were retracted while injecting lidocaine 1% until the needle is out. The same procedure was repeated at the level of Left L3, L4, and L5 levels. At the end of the procedure, the skin was cleansed and bandages were applied. COMPLICATIONS: No acute complications. DISPOSITION / PLANS: The patient was placed in a supine position and transferred to the recovery area in a stable condition for observation and was discharged from the recovery room after meeting discharge criteria. Home discharge instructions given to the patient by the staff. The patient was reexamined prior to discharge. The patient will schedule a follow up in the [facility] in 2-4 weeks.
[2023-01-22] MEDS ORDERED: LIDOCAINE 1% (10MG/ML) FOR IV START INTRADERMA PRN (10:46)
[2023-01-22] MEDS ORDERED: LACTATED RINGERS 1,000 ML IV SCH ×2 (10:46)
[2023-01-22] MEDS ORDERED: IV FLUID CONTINUATION 800 ML IV ONE (10:47)
[2023-01-22 10:48] VITALS: RESP 16
--- NOTE | 2023-01-22 10:48 | FL ---
Fluoroscopy History: RADIO FREQ BILAT LUMBAR RADIO FREQ BILAT LUMBAR. DR. GRAF. FL TIME: 37 SECONDS DAP: .01089
[2023-01-22 11:08] VITALS: BP 111/57; PULSE 72
== END 2023-01-22 11:20 | disposition home or self-care (01) ==
LOC: ORPAIN 08:42
PROVIDERS: ATTEND Specialist
DX: M51.36 Other intervertebral disc degeneration, lumbar region (principal); M47.816 Spondylosis without myelopathy or radiculopathy, lumbar region; I10 Essential (primary) hypertension; J45.909 Unspecified asthma, uncomplicated; F17.200 Nicotine dependence, unspecified, uncomplicated; E11.9 Type 2 diabetes mellitus without complications; F32.A Depression, unspecified; K21.9 Gastro-esophageal reflux disease without esophagitis; Z79.84 Long term (current) use of oral hypoglycemic drugs; Z79.51 Long term (current) use of inhaled steroids; Z79.899 Other long term (current) drug therapy
CPT/HCPCS: 81025; 64635; 64636 ×2; J2250; J1030; J3010; J2795

== ENCOUNTER → 2023-02-10 | Outpatient (CLI) | payer OTHER ==
[2023-02-10 10:37] VITALS: BP 113/76; PULSE 60; RESP 18; TEMP 97.7
--- NOTE | 2023-02-10 13:29 | P.PAINPG ---
PQRS Measure Charge Sheet Comment: A 47 yr old female with a history of severe and chronic LBP secondary to lumbar DDD and spondylosis with facet arthropathy without myelopathy presents today for medication refills and evaluation s/p BL RFA L3-L5. Pt states she experienced 50 % pain relief s/p procedure. Pain level is provoked at 8 /10 in intensity, constant, localized in the R lumbar spine, throbbing in character w shooting towards the BLEs. Pain is provoked by standing/ walking for periods of 15 min or more. Pain is alleviated with PT x 6 wks in 2020 which was ineffective, massager therapy weekly x 6 wks in 2021, physician guided home stretching regimen, injections, medications, topicals, laying supine and rest. Interventional pain procedures completed include BL RFA L3-L5 Patient is currently on Fenton , Baclofen, BioFreeze gel Patient denies any side effects of the medication(s), denies excessive drowsiness or sleepiness, denies suicidal ideation and reports that the current pain medication is helping to control the pain and improve activities of daily living. Patient denies any motor or sensory deficits. Patient denies any fever or night sweats, denies any change in the bowel movements or urination. Physical Examination: -Constitutional: Cooperative. Not in acute distress . - Neurologic: Cranial nerve II to XII intact. No focal neurological deficits. - Psychatric: Alert & oriented x 3. Matching mood & appropriate affect. Judgment and insight intact. - Musculoskeletal: Cervical spine: Muscle bulk/ tone/ strength in the bilateral upper extremities normal Vertebral body tenderness to palpation over Spurling test positive Distraction test positive Facet loading test positive TTP Thoracic spine Muscle bulk / tone/ strength in the bilateral paraspinal muscles normal Vertebral body tender to palpation over Facet loading test positive TTP Lumbar spine: Motor bulk/ tone/ strength lower extremities , thigh and legs : 5/5 Deep tendon reflexes : Normal Knee Jerk. Normal Ankle Jerk . Vertebral body tenderness to palpation over L4, L5 Lumbar Facet Loading Test positive Straight Leg Raise: positive at 30 degrees right side/ left side Gaenslen's Test positive Sacral spine : Severe tenderness over the Sacroiliac joint: right side / left side Range of motion: Flexion of the lumbar spine <60 degrees Range of motion: Extension of the lumbar spine <20 degrees Gaenslen's Test positive right side / left side Silke test: positive right side / left side Thigh Thrust Test positive right side / left side Sacral Thrust Test positive right side / left side Assessment and plan: Chronic LBP secondary to lumbar DDD, spondylosis with facet arthropathy without myelopathy Recommendation of BL RFA L4-L5, L5-S1. Pt experienced substantial pain relief w prior RFA lumbar spine procedure. Risks, benefits of procedure discussed and pt verbalized understanding. Admits to anticoagulant use or medical history of diabetes. Protocol for discontinuation/ continuation of medications priti procedure discussed. All questions answered. Chronic and current use of high-risk medication (Opioids). The patient was counseled about risk of opioid use, psychological risk associated with opioids and was orally counseled to not overuse , divert or sell medications. Pt is to store medication in a safe location. The patient is counseled against driving while using narcotic medications and also not to use alcohol or any illicit recreational drugs. Patient verbalized understanding that the lack of compliance will result in failure to renew narcotic prescription(s) as well as possible discharge from the clinic Diagnoses, prognosis and treatment options including but not limited to physical therapy, surgical interventions, interventional therapies and medication management including narcotics and adjuvant medication were discussed. All patient questions answered MAPS reviewed and it was appropriate. UDS from 12/16/22 reviewed and consistent. Prescription refill for Fenton 7.5/325mg #60 , Baclofen w 1 RF I have spent less than 30 minutes on patient care today. Dr Alaniz was available by phone for the evaluation of this patient. The time was used to review the medical records including relevant urine studies and Prescription history (MAPs), review of the available imaging, evaluation and examination of the patient, coordination of care with the medical staff and if applicable referring physicians, as well as creation of the medical record PQRS Narrative: Smoking Status Current every day smoker Narcotic Agreement Date Signed 03/11/22 Hx Alcohol Use (MH) No Home Medications: Ambulatory Orders Loratadine [Claritin] 10 mg PO DAILY 11/03/16 Montelukast Sodium [Singulair] 10 mg PO HS 11/03/16 Propranolol [Inderal] 60 mg PO BID 11/03/16 Naproxen 500 mg PO BID 06/28/19 lisinopriL [Zestril] 20 mg PO HS 10/24/19 metFORMIN HCL [Glucophage] 500 mg PO BID 10/24/19 Escitalopram [Lexapro] 10 mg PO DAILY 04/16/20 Baclofen [Lioresal] 5 mg PO TID PRN 30 Days #90 tablet 02/10/23 HYDROcodone/APAP 7.5-325MG [Fenton 7.5-325] 1 tab PO BID PRN 30 Days #60 tab 02/10/23 HYDROcodone/APAP 7.5-325MG [Fenton 7.5-325] 1 tab PO Q12HR PRN 30 Days #60 tab 02/10/23 Controlled Substance Measures - Controlled Substance Measures Is patient prescribed a controlled substance at discharge?: Yes
== END ==
LOC: PNWHC3 08:01
PROVIDERS: ATTEND Specialist
DX: M51.36 Other intervertebral disc degeneration, lumbar region (principal); M47.816 Spondylosis without myelopathy or radiculopathy, lumbar region; F17.200 Nicotine dependence, unspecified, uncomplicated; G89.29 Other chronic pain; Z79.891 Long term (current) use of opiate analgesic
CPT/HCPCS: 99211

== ENCOUNTER → 2023-04-07 | Outpatient (CLI) | payer OTHER ==
[2023-04-07 08:53] VITALS: BP 122/73; PULSE 58; RESP 15; TEMP 97.5
--- NOTE | 2023-04-07 14:40 | P.PAINPG ---
Objective - Vital Signs Vital signs: Intake & Output 04/06/23 04/07/23 04/07/23 18:59 06:59 18:59 Weight 136.078 kg PQRS Measure Charge Sheet Comment: A 47 yr old female with a history of severe and chronic LBP secondary to lumbar DDD and spondylosis with facet arthropathy without myelopathy presents today for medication refills. Pain level is provoked at 8 /10 in intensity, constant, localized in the R lumbar spine, throbbing in character w shooting towards the BLEs. Pain is provoked by standing/ walking for periods of 15 min or more. Pain is alleviated with PT x 6 wks in 2020 which was ineffective, massager therapy weekly x 6 wks in 2021, physician guided home stretching regimen, injections, medications, topicals, laying supine and rest. Interventional pain procedures completed include BL RFA L3-L5 Patient is currently on Trinity , Baclofen, BioFreeze gel Patient denies any side effects of the medication(s), denies excessive drowsiness or sleepiness, denies suicidal ideation and reports that the current pain medication is helping to control the pain and improve activities of daily living. Patient denies any motor or sensory deficits. Patient denies any fever or night sweats, denies any change in the bowel movements or urination. Physical Examination: -Constitutional: Cooperative. Not in acute distress . - Neurologic: Cranial nerve II to XII intact. No focal neurological deficits. - Psychatric: Alert & oriented x 3. Matching mood & appropriate affect. Judgment and insight intact. - Musculoskeletal: Cervical spine: Muscle bulk/ tone/ strength in the bilateral upper extremities normal Vertebral body tenderness to palpation over Spurling test positive Distraction test positive Facet loading test positive TTP Thoracic spine Muscle bulk / tone/ strength in the bilateral paraspinal muscles normal Vertebral body tender to palpation over Facet loading test positive TTP Lumbar spine: Motor bulk/ tone/ strength lower extremities , thigh and legs : 5/5 Deep tendon reflexes : Normal Knee Jerk. Normal Ankle Jerk . Vertebral body tenderness to palpation over L4, L5 Lumbar Facet Loading Test positive Straight Leg Raise: positive at 30 degrees right side/ left side Gaenslen's Test positive Sacral spine : Severe tenderness over the Sacroiliac joint: right side / left side Range of motion: Flexion of the lumbar spine <60 degrees Range of motion: Extension of the lumbar spine <20 degrees Gaenslen's Test positive right side / left side Silke test: positive right side / left side Thigh Thrust Test positive right side / left side Sacral Thrust Test positive right side / left side Assessment and plan: Chronic LBP secondary to lumbar DDD, spondylosis with facet arthropathy without myelopathy Chronic and current use of high-risk medication (Opioids). The patient was counseled about risk of opioid use, psychological risk associated with opioids and was orally counseled to not overuse , divert or sell medications. Pt is to store medication in a safe location. The patient is counseled against driving while using narcotic medications and also not to use alcohol or any illicit recreational drugs. Patient verbalized understanding that the lack of compliance will result in failure to renew narcotic prescription(s) as well as possible discharge from the clinic Diagnoses, prognosis and treatment options including but not limited to physical therapy, surgical interventions, interventional therapies and medication management including narcotics and adjuvant medication were discussed. All patient questions answered MAPS reviewed and it was appropriate. UDS from 12/16/22 reviewed and consistent. Prescription refill for Trinity 7.5/325mg #60 , Baclofen w 1 RF I have spent less than 30 minutes on patient care today. Dr Alaniz was available by phone for the evaluation of this patient. The time was used to review the medical records including relevant urine studies and Prescription history (MAPs), review of the available imaging, evaluation and examination of the patient, coordination of care with the medical staff and if applicable referring physicians, as well as creation of the medical record PQRS Narrative: Smoking Status Current every day smoker Narcotic Agreement Date Signed 03/11/22 Hx Alcohol Use (MH) No Home Medications: Ambulatory Orders Loratadine [Claritin] 10 mg PO DAILY 11/03/16 Montelukast Sodium [Singulair] 10 mg PO HS 11/03/16 Propranolol [Inderal] 60 mg PO BID 11/03/16 Naproxen 500 mg PO BID 06/28/19 lisinopriL [Zestril] 20 mg PO HS 10/24/19 metFORMIN HCL [Glucophage] 500 mg PO BID 10/24/19 Escitalopram [Lexapro] 10 mg PO DAILY 04/16/20 Baclofen [Lioresal] 5 mg PO TID PRN 30 Days #90 tablet 02/10/23 HYDROcodone/APAP 7.5-325MG [Trinity 7.5-325] 1 tab PO BID PRN 30 Days #60 tab 04/07/23 HYDROcodone/APAP 7.5-325MG [Trinity 7.5-325] 1 tab PO Q12HR PRN 30 Days #60 tab 04/07/23 Controlled Substance Measures - Controlled Substance Measures Is patient prescribed a controlled substance at discharge?: Yes When asked, does pt state using other controlled substances?: No If prescribed controlled substance>3 days was MAPS reviewed?: Yes
== END ==
LOC: PNWHC3 08:27
PROVIDERS: ATTEND Specialist
DX: M51.36 Other intervertebral disc degeneration, lumbar region (principal); M47.816 Spondylosis without myelopathy or radiculopathy, lumbar region; G89.29 Other chronic pain; Z79.891 Long term (current) use of opiate analgesic; F17.200 Nicotine dependence, unspecified, uncomplicated
CPT/HCPCS: 99211

== ENCOUNTER → 2023-06-02 | Outpatient (CLI) | payer OTHER ==
[2023-06-02 09:51] VITALS: BP 118/75; PULSE 54; RESP 16; TEMP 97.6
--- NOTE | 2023-06-02 14:43 | P.PAINPG ---
PQRS Measure Charge Sheet Comment: A 47 yr old female with a history of severe and chronic LBP secondary to lumbar DDD and spondylosis with facet arthropathy without myelopathy presents today for medication refills. Pain level is provoked at 7 /10 in intensity, constant, localized in the R lumbar spine, throbbing in character w shooting towards the BLEs. Pain is provoked by standing/ walking for periods of 15 min or more. Pain is alleviated with PT x 6 wks in 2020 which was ineffective, massager therapy weekly x 6 wks in 2021, physician guided home stretching regimen, injections, medications, topicals, laying supine and rest. Interventional pain procedures completed include BL RFA L3-L5 Patient is currently on Page , Baclofen, BioFreeze gel Patient denies any side effects of the medication(s), denies excessive drowsiness or sleepiness, denies suicidal ideation and reports that the current pain medication is helping to control the pain and improve activities of daily living. Patient denies any motor or sensory deficits. Patient denies any fever or night sweats, denies any change in the bowel movements or urination. Physical Examination: -Constitutional: Cooperative. Not in acute distress . - Neurologic: Cranial nerve II to XII intact. No focal neurological deficits. - Psychatric: Alert & oriented x 3. Matching mood & appropriate affect. Judgment and insight intact. - Musculoskeletal: Cervical spine: Muscle bulk/ tone/ strength in the bilateral upper extremities normal Vertebral body tenderness to palpation over Spurling test positive Distraction test positive Facet loading test positive TTP Thoracic spine Muscle bulk / tone/ strength in the bilateral paraspinal muscles normal Vertebral body tender to palpation over Facet loading test positive TTP Lumbar spine: Motor bulk/ tone/ strength lower extremities , thigh and legs : 5/5 Deep tendon reflexes : Normal Knee Jerk. Normal Ankle Jerk . Vertebral body tenderness to palpation over L4, L5 Lumbar Facet Loading Test positive Straight Leg Raise: positive at 30 degrees right side/ left side Gaenslen's Test positive Sacral spine : Severe tenderness over the Sacroiliac joint: right side / left side Range of motion: Flexion of the lumbar spine <60 degrees Range of motion: Extension of the lumbar spine <20 degrees Gaenslen's Test positive right side / left side Silke test: positive right side / left side Thigh Thrust Test positive right side / left side Sacral Thrust Test positive right side / left side Assessment and plan: Chronic LBP secondary to lumbar DDD, spondylosis with facet arthropathy without myelopathy Chronic and current use of high-risk medication (Opioids). The patient was counseled about risk of opioid use, psychological risk associated with opioids and was orally counseled to not overuse , divert or sell medications. Pt is to store medication in a safe location. The patient is counseled against driving while using narcotic medications and also not to use alcohol or any illicit recreational drugs. Patient verbalized understanding that the lack of compliance will result in failure to renew narcotic prescription(s) as well as possible discharge from the clinic Diagnoses, prognosis and treatment options including but not limited to physical therapy, surgical interventions, interventional therapies and medication management including narcotics and adjuvant medication were discussed. All patient questions answered MAPS reviewed and it was appropriate. UDS collected today 06/02/23. Prescription refill for Page 7.5/325mg #60 , Baclofen , Mobic w 1 RF I have spent less than 30 minutes on patient care today. Dr Alaniz was available by phone for the evaluation of this patient. The time was used to review the medical records including relevant urine studies and Prescription history (MAPs), review of the available imaging, evaluation and examination of the patient, coordination of care with the medical staff and if applicable referring physicians, as well as creation of the medical record PQRS Narrative: Smoking Status Current every day smoker Narcotic Agreement Date Signed 04/07/23 Hx Alcohol Use (MH) No Home Medications: Ambulatory Orders Loratadine [Claritin] 10 mg PO DAILY 11/03/16 Montelukast Sodium [Singulair] 10 mg PO HS 11/03/16 Propranolol [Inderal] 60 mg PO BID 11/03/16 lisinopriL [Zestril] 20 mg PO HS 10/24/19 metFORMIN HCL [Glucophage] 500 mg PO BID 10/24/19 Escitalopram [Lexapro] 10 mg PO DAILY 04/16/20 Baclofen [Lioresal] 5 mg PO TID PRN 30 Days #90 tablet 04/07/23 HYDROcodone/APAP 7.5-325MG [Page 7.5-325] 1 tab PO BID PRN 30 Days #60 tab 04/07/23 HYDROcodone/APAP 7.5-325MG [Page 7.5-325] 1 tab PO Q12HR PRN 30 Days #60 tab 04/07/23 Meloxicam [Mobic] 7.5 mg PO DAILY 30 Days #30 tab 04/07/23 Controlled Substance Measures - Controlled Substance Measures Is patient prescribed a controlled substance at discharge?: Yes When asked, does pt state using other controlled substances?: No If prescribed controlled substance>3 days was MAPS reviewed?: Yes
== END ==
LOC: PNWHC3 08:18
PROVIDERS: ATTEND Specialist
DX: Z51.81 Encounter for therapeutic drug level monitoring (principal); M51.36 Other intervertebral disc degeneration, lumbar region; M47.816 Spondylosis without myelopathy or radiculopathy, lumbar region; F17.200 Nicotine dependence, unspecified, uncomplicated; G89.29 Other chronic pain; Z79.891 Long term (current) use of opiate analgesic
CPT/HCPCS: 80307; G0463; 99211

== ENCOUNTER → 2023-07-28 | Outpatient (CLI) | payer OTHER ==
--- NOTE | 2023-07-28 08:26 | P.PAINPG ---
Objective - Vital Signs Vital signs: Intake & Output 07/27/23 07/28/23 07/28/23 18:59 06:59 18:59 Weight 122.47 kg PQRS Measure Charge Sheet Comment: A 47 yr old female with a history of severe and chronic LBP secondary to lumbar DDD and spondylosis with facet arthropathy without myelopathy presents today for medication refills. Pain level is provoked at 7 /10 in intensity, constant, localized in the R lumbar spine, predominantly axial, throbbing in character w occasional shooting pain towards the BLEs. Pain is provoked by standing/ walking for periods of 15 min or more. Pain is alleviated with PT x 6 wks in 2020 which was ineffective, massager therapy weekly x 6 wks in 2021, physician guided home stretching regimen, injections, medications, topicals, laying supine and rest. Pt cares for her grandchildren and occasionally takes medications three times daily due to over activity. Oswestry axial pain score of 24. Interventional pain procedures completed include BL RFA L3-L5 Patient is currently on [place] 7.5/325mg , Baclofen, BioFreeze gel Patient denies any side effects of the medication(s), denies excessive drowsiness or sleepiness, denies suicidal ideation and reports that the current pain medication is helping to control the pain and improve activities of daily living. Patient denies any motor or sensory deficits. Patient denies any fever or night sweats, denies any change in the bowel movements or urination. Physical Examination: -Constitutional: Cooperative. Not in acute distress . - Neurologic: Cranial nerve II to XII intact. No focal neurological deficits. - Psychatric: Alert & oriented x 3. Matching mood & appropriate affect. Judgment and insight intact. - Musculoskeletal: Cervical spine: Muscle bulk/ tone/ strength in the bilateral upper extremities normal Vertebral body tenderness to palpation over Spurling test positive Distraction test positive Facet loading test positive TTP Thoracic spine Muscle bulk / tone/ strength in the bilateral paraspinal muscles normal Vertebral body tender to palpation over Facet loading test positive TTP Lumbar spine: Motor bulk/ tone/ strength lower extremities , thigh and legs : 5/5 Deep tendon reflexes : Normal Knee Jerk. Normal Ankle Jerk . Vertebral body tenderness to palpation over L4, L5 Lumbar Facet Loading Test positive Straight Leg Raise: positive at 30 degrees right side/ left side Gaenslen's Test positive Sacral spine : Severe tenderness over the Sacroiliac joint: right side / left side Range of motion: Flexion of the lumbar spine <60 degrees Range of motion: Extension of the lumbar spine <20 degrees Gaenslen's Test positive right side / left side Silke test: positive right side / left side Thigh Thrust Test positive right side / left side Sacral Thrust Test positive right side / left side Assessment and plan: Chronic LBP secondary to lumbar DDD, spondylosis with facet arthropathy without myelopathy Chronic and current use of high-risk medication (Opioids). The patient was counseled about risk of opioid use, psychological risk associated with opioids and was orally counseled to not overuse , divert or sell medications. Pt is to store medication in a safe location. The patient is counseled against driving while using narcotic medications and also not to use alcohol or any illicit recreational drugs. Patient verbalized understanding that the lack of compliance will result in failure to renew narcotic prescription(s) as well as possible discharge from the clinic Diagnoses, prognosis and treatment options including but not limited to physical therapy, surgical interventions, interventional therapies and medication management including narcotics and adjuvant medication were discussed. All patient questions answered MAPS reviewed and it was appropriate. UDS from 06/02/23 reviewed and consistent. Prescription refill for [place] 7.5/325mg #90 , Baclofen , Mobic w 1 RF I have spent less than 30 minutes on patient care today. Dr Alaniz was arun ilable by phone for the evaluation of this patient. The time was used to review the medical records including relevant urine studies and Prescription history (MAPs), review of the available imaging, evaluation and examination of the patient, coordination of care with the medical staff and if applicable referring physicians, as well as creation of the medical record PQRS Narrative: Smoking Status Current every day smoker Narcotic Agreement Date Signed 04/07/23 Hx Alcohol Use (MH) No Home Medications: Ambulatory Orders Loratadine [Claritin] 10 mg PO DAILY 11/03/16 Montelukast Sodium [Singulair] 10 mg PO HS 11/03/16 Propranolol [Inderal] 60 mg PO BID 11/03/16 lisinopriL [Zestril] 20 mg PO HS 10/24/19 metFORMIN HCL [Glucophage] 500 mg PO BID 10/24/19 Escitalopram [Lexapro] 10 mg PO DAILY 08/25/20 Baclofen [Lioresal] 5 mg PO TID PRN 30 Days #90 tablet 07/28/23 HYDROcodone/APAP 7.5-325MG [[place] 7.5-325] 1 tab PO TID PRN 30 Days #90 tab 07/28/23 HYDROcodone/APAP 7.5-325MG [[place] 7.5-325] 1 tab PO TID PRN 30 Days #90 tab 07/28/23 Meloxicam [Mobic] 7.5 mg PO DAILY 30 Days #30 tab 07/28/23 Controlled Substance Measures - Controlled Substance Measures Is patient prescribed a controlled substance at discharge?: Yes When asked, does pt state using other controlled substances?: No If prescribed controlled substance>3 days was MAPS reviewed?: Yes
[2023-07-28 08:44] VITALS: BP 129/78; PULSE 87; RESP 15; TEMP 98.5
== END ==
LOC: PNWHC3 08:01
PROVIDERS: ATTEND Specialist
DX: M47.816 Spondylosis without myelopathy or radiculopathy, lumbar region (principal); M51.36 Other intervertebral disc degeneration, lumbar region; F11.90 Opioid use, unspecified, uncomplicated; F17.200 Nicotine dependence, unspecified, uncomplicated

== ENCOUNTER → 2023-09-22 | Outpatient (CLI) | payer OTHER ==
[2023-09-22 09:04] VITALS: BP 124/74; PULSE 63; TEMP 97.1
[2023-09-22 10:01] VITALS: RESP 16
--- NOTE | 2023-09-22 14:41 | P.PAINPG ---
PQRS Measure Charge Sheet Comment: A 47 yr old female with a history of severe and chronic LBP secondary to lumbar DDD and spondylosis with facet arthropathy without myelopathy presents today for medication refills. Pain level is provoked at 6 /10 in intensity, constant, localized in the R lumbar spine, predominantly axial, throbbing in character w occasional shooting pain towards the BLEs. Pain is provoked by standing/ walking for periods of 15 min or more. Pain is alleviated with PT x 6 wks in 2020 which was ineffective, massager therapy weekly x 6 wks in 2021, physician guided home stretching regimen, injections, medications, topicals, laying supine and rest. Pt cares for her grandchildren and occasionally takes medications three times daily due to over activity. Oswestry axial pain score of 24. Interventional pain procedures completed include BL RFA L3-L5 Patient is currently on [place] 7.5/325mg , Baclofen, BioFreeze gel Patient denies any side effects of the medication(s), denies excessive drowsiness or sleepiness, denies suicidal ideation and reports that the current pain medication is helping to control the pain and improve activities of daily living. Patient denies any motor or sensory deficits. Patient denies any fever or night sweats, denies any change in the bowel movements or urination. Physical Examination: -Constitutional: Cooperative. Not in acute distress . - Neurologic: Cranial nerve II to XII intact. No focal neurological deficits. - Psychatric: Alert & oriented x 3. Matching mood & appropriate affect. Judgment and insight intact. - Musculoskeletal: Cervical spine: Muscle bulk/ tone/ strength in the bilateral upper extremities normal Vertebral body tenderness to palpation over Spurling test positive Distraction test positive Facet loading test positive TTP Thoracic spine Muscle bulk / tone/ strength in the bilateral paraspinal muscles normal Vertebral body tender to palpation over Facet loading test positive TTP Lumbar spine: Motor bulk/ tone/ strength lower extremities , thigh and legs : 5/5 Deep tendon reflexes : Normal Knee Jerk. Normal Ankle Jerk . Vertebral body tenderness to palpation over L4, L5 Lumbar Facet Loading Test positive Straight Leg Raise: positive at 30 degrees right side/ left side Gaenslen's Test positive Sacral spine : Severe tenderness over the Sacroiliac joint: right side / left side Range of motion: Flexion of the lumbar spine <60 degrees Range of motion: Extension of the lumbar spine <20 degrees Gaenslen's Test positive right side / left side Silke test: positive right side / left side Thigh Thrust Test positive right side / left side Sacral Thrust Test positive right side / left side Assessment and plan: Chronic LBP secondary to lumbar DDD, spondylosis with facet arthropathy without myelopathy Chronic and current use of high-risk medication (Opioids). The patient was counseled about risk of opioid use, psychological risk associated with opioids and was orally counseled to not overuse , divert or sell medications. Pt is to store medication in a safe location. The patient is counseled against driving while using narcotic medications and also not to use alcohol or any illicit recreational drugs. Patient verbalized understanding that the lack of compliance will result in failure to renew narcotic prescription(s) as well as possible discharge from the clinic Diagnoses, prognosis and treatment options including but not limited to physical therapy, surgical interventions, interventional therapies and medication management including narcotics and adjuvant medication were discussed. All patient questions answered MAPS reviewed and it was appropriate. UDS from 06/02/23 reviewed and consistent. Prescription refill for [place] 7.5/325mg #90 , Baclofen , Mobic w 1 RF I have spent less than 30 minutes on patient care today. Dr Alaniz was available by phone for the evaluation of this patient. The time was used to review the medical records including relevant urine studies and Prescription history (MAPs), review of the available imaging, evaluation and examination of the patient, coordination of care with the medical staff and if applicable referring physicians, as well as creation of the medical record - Pain Location Bilateral Lower Back Non-Pharmacological Interventions: Heat, Inactivity, Physical Therapy, Position/Reposition, Relaxation Technique Pharmacological Interventions: Block, Epidural, PRN Medication, Scheduled Medication, Topical Medication PQRS Narrative: Smoking Status Current every day smoker Narcotic Agreement Date Signed 04/07/23 Hx Alcohol Use (MH) No Home Medications: Ambulatory Orders Loratadine [Claritin] 10 mg PO DAILY 11/03/16 Montelukast Sodium [Singulair] 10 mg PO HS 11/03/16 Propranolol [Inderal] 60 mg PO BID 11/03/16 lisinopriL [Zestril] 20 mg PO HS 10/24/19 metFORMIN HCL [Glucophage] 500 mg PO BID 10/24/19 Escitalopram [Lexapro] 10 mg PO DAILY 08/25/20 HYDROcodone/APAP 7.5-325MG [[place] 7.5-325] 1 tab PO TID PRN 30 Days #90 tab 07/28/23 Baclofen [Lioresal] 5 mg PO TID PRN 30 Days #90 tablet 09/22/23 Dulaglutide [Trulicity] 1.5 mg SQ 09/22/23 HYDROcodone/APAP 7.5-325MG [[place] 7.5-325] 1 tab PO TID PRN 30 Days #90 tab 09/22/23 HYDROcodone/APAP 7.5-325MG [[place] 7.5-325] 1 tab PO TID PRN 30 Days #90 tab 09/22/23 Meloxicam [Mobic] 7.5 mg PO DAILY 30 Days #30 tab 09/22/23 Controlled Substance Measures - Controlled Substance Measures Is patient prescribed a controlled substance at discharge?: Yes When asked, does pt state using other controlled substances?: No If prescribed controlled substance>3 days was MAPS reviewed?: Yes
== END ==
LOC: PNWHC3 08:03
PROVIDERS: ATTEND Anesthesiology
DX: M47.816 Spondylosis without myelopathy or radiculopathy, lumbar region (principal); M84.50XA Pathological fracture in neoplastic disease, unspecified site, initial encounter for fracture; M54.50 Low back pain, unspecified; M51.36 Other intervertebral disc degeneration, lumbar region; F17.200 Nicotine dependence, unspecified, uncomplicated; Z79.891 Long term (current) use of opiate analgesic
CPT/HCPCS: 99211

== ENCOUNTER → 2023-11-24 | Outpatient (CLI) | payer OTHER ==
[2023-11-24 09:56] VITALS: BP 125/80; PULSE 58; RESP 16; TEMP 97.5
--- NOTE | 2023-11-24 14:25 | P.PAINPG ---
PQRS Measure Charge Sheet Comment: A 48 yr old female with a history of severe and chronic LBP secondary to lumbar DDD and spondylosis with facet arthropathy without myelopathy presents today for medication refills. Pt underwent a BL RFA in Jan 2023 where she admits she experienced 60% pain relief x 6 mo s/p procedure. Pain level is provoked at 6 /10 in intensity, constant, localized in the R lumbar spine, predominantly axial, throbbing in character without shooting pain. Pain is provoked by standing/ walking for periods of 15 min or more. Pain is alleviated with PT x 6 wks in 2020 which was ineffective, massager therapy weekly x 6 wks in 2021, physician guided home stretching regimen, injections, medications, topicals, laying supine and rest. Pt cares for her grandchildren and occasionally takes medications three times daily due to over activity. Oswestry axial pain score of 24. Interventional pain procedures completed include BL RFA L3-L5 (Jan 2023) Patient is currently on [place] 7.5/325mg , Baclofen, BioFreeze gel Patient denies any side effects of the medication(s), denies excessive drowsiness or sleepiness, denies suicidal ideation and reports that the current pain medication is helping to control the pain and improve activities of daily living. Patient denies any motor or sensory deficits. Patient denies any fever or night sweats, denies any change in the bowel movements or urination. Physical Examination: -Constitutional: Cooperative. Not in acute distress . - Neurologic: Cranial nerve II to XII intact. No focal neurological deficits. - Psychatric: Alert & oriented x 3. Matching mood & appropriate affect. Judgment and insight intact. - Musculoskeletal: Cervical spine: Muscle bulk/ tone/ strength in the bilateral upper extremities normal Vertebral body tenderness to palpation over Spurling test positive Distraction test positive Facet loading test positive TTP Thoracic spine Muscle bulk / tone/ strength in the bilateral paraspinal muscles normal Vertebral body tender to palpation over Facet loading test positive TTP Lumbar spine: Motor bulk/ tone/ strength lower extremities , thigh and legs : 5/5 Deep tendon reflexes : Normal Knee Jerk. Normal Ankle Jerk . Vertebral body tenderness to palpation Lumbar Facet Loading Test positive BL L4-L5, L5-S1 Straight Leg Raise: positive at 30 degrees right side/ left side Gaenslen's Test positive Sacral spine : Severe tenderness over the Sacroiliac joint: right side / left side Range of motion: Flexion of the lumbar spine <60 degrees Range of motion: Extension of the lumbar spine <20 degrees Gaenslen's Test positive right side / left side Silke test: positive right side / left side Thigh Thrust Test positive right side / left side Sacral Thrust Test positive right side / left side Assessment and plan: Chronic LBP secondary to lumbar DDD, spondylosis with facet arthropathy without myelopathy Recommendation of BL RFA L4-L5, L5-S1 Pt exhibited optimal pain relief w prior BL RFA of the lumbar spine. Risks, benefits of procedure discussed and patient verbalized understanding. Protocol for discontinuation/continuation of medication surrounding procedure discussed. Minimal anesthesia including Versed and Fentanyl if clinically indicated. All questions answered. Chronic and current use of high-risk medication (Opioids). The patient was counseled about risk of opioid use, psychological risk associated with opioids and was orally counseled to not overuse , divert or sell medications. Pt is to store medication in a safe location. The patient is counseled against driving while using narcotic medications and also not to use alcohol or any illicit recreational drugs. Patient verbalized understanding that the lack of compliance will result in failure to renew narcotic prescription(s) as well as possible discharge from the clinic Diagnoses, prognosis and treatment options including but not limited to physical therapy, surgical interventions, interventional therapies and medication management including narcotics and adjuvant medication were discussed. All patient questions answered MAPS reviewed and it was appropriate. UDS from 06/02/23 reviewed and consistent. Prescription refill for [place] 7.5/325mg #90 , Baclofen , Mobic w 1 RF I have spent less than 30 minutes on patient care today. Dr Alaniz was available by phone for the evaluation of this patient. The time was used to review the medical records including relevant urine studies and Prescription history (MAPs), review of the available imaging, evaluation and examination of the patient, coordination of care with the medical staff and if applicable referring physicians, as well as creation of the medical record PQRS Narrative: Smoking Status Current every day smoker Narcotic Agreement Date Signed 04/07/23 Hx Alcohol Use (MH) No Home Medications: Ambulatory Orders Loratadine [Claritin] 10 mg PO DAILY 11/03/16 Montelukast Sodium [Singulair] 10 mg PO HS 11/03/16 Propranolol [Inderal] 60 mg PO BID 11/03/16 lisinopriL [Zestril] 20 mg PO HS 10/24/19 metFORMIN HCL [Glucophage] 500 mg PO BID 10/24/19 Escitalopram [Lexapro] 10 mg PO DAILY 04/16/20 Dulaglutide [Trulicity] 1.5 mg SQ 09/22/23 Baclofen [Lioresal] 5 mg PO TID PRN 30 Days #90 tablet 11/17/23 HYDROcodone/APAP 7.5-325MG [[place] 7.5-325] 1 tab PO Q4H PRN 3 Days #18 tab 11/17/23 Meloxicam [Mobic] 7.5 mg PO DAILY 30 Days #30 tab 11/17/23 HYDROcodone/APAP 7.5-325MG [[place] 7.5-325] 1 tab PO TID PRN 30 Days #90 tab 11/24/23 HYDROcodone/APAP 7.5-325MG [[place] 7.5-325] 1 tab PO TID PRN 30 Days #90 tab 11/24/23 Controlled Substance Measures - Controlled Substance Measures Is patient prescribed a controlled substance at discharge?: Yes When asked, does pt state using other controlled substances?: No If prescribed controlled substance>3 days was MAPS reviewed?: Yes
== END ==
LOC: PNWHC3 11-17 08:09
PROVIDERS: ATTEND Specialist
DX: M51.37 Other intervertebral disc degeneration, lumbosacral region (principal); M47.817 Spondylosis without myelopathy or radiculopathy, lumbosacral region; G89.29 Other chronic pain; F17.200 Nicotine dependence, unspecified, uncomplicated; E11.9 Type 2 diabetes mellitus without complications; Z79.891 Long term (current) use of opiate analgesic; Z79.4 Long term (current) use of insulin; Z79.85 Long-term (current) use of injectable non-insulin antidiabetic drugs; Z79.84 Long term (current) use of oral hypoglycemic drugs
CPT/HCPCS: 99202

== ENCOUNTER 2023-12-03 08:32 | Day surgery (SDC) | payer OTHER ==
[2023-12-01 13:52] VITALS: BMI 43.9
[2023-12-03 09:39] LABS: Glucose,Whole Blood 188 mg/dL (70-110)
[2023-12-03] MEDS: LACTATED RINGERS 1,000 ML IV SCH (09:39)
[2023-12-03] MEDS ORDERED: MIDAZOLAM 2 MG/2 ML VIAL ONE (10:01)
[2023-12-03] MEDS ORDERED: fentaNYL (PF) 50 MCG/ML 2 ML AMP ONE (10:01)
[2023-12-03 10:08] VITALS: TEMP 98
[2023-12-03] MEDS ORDERED: methylPREDNISolone ACETATE 40 MG/ML 1 ML VIAL ONE (10:15)
[2023-12-03] MEDS ORDERED: ROPIVACAINE 5MG/ML 20ML VIAL ONE (10:15)
--- NOTE | 2023-12-03 10:45 | P.PCN ---
Date of Procedure: 12/03/23 Procedure(s) Performed: PREOPERATIVE DIAGNOSIS: 1-Lumbar Spondylosis with Facet Arthropathy without myelopathy. 2- Lumber degenerative disc disease. POSTOPERATIVE DIAGNOSIS: 1- Lumbar Spondylosis with Facet Arthropathy without myelopathy. 2- Lumber degenerative disc disease. PROCEDURES : Bilateral Radiofrequency thermocoagulation, L3 , L4 , and L5 medial branch, with fluoroscopic guidance (fluoroscopy images available in the radiology department) ( to denervate the facet joint at bilateral L4-5 ,and L5-S1 levels ). ANESTHESIA: Monitored anesthesia care as per anesthesia department . EBL: Minimal PROCEDURE INDICATION: The patient with low back pain secondary to lumbar facet arthropathy who had more than 50% relief of her pain with previous diagnostic lumbar medial branch block with bupivacaine. PROCEDURE DESCRIPTION / TECHNIQUE: The patient was seen and identified in the preoperative area. Risks, benefits, complications, including but not limited to risk of infection ,bleeding , allergic reactions to the medications and no complete pain releife , and alternatives were discussed with the patient, the patient agreed to proceed with the procedure and signed the consent. IV was started. Vital signs remained stable throughout the procedure. Patient was taken to the OR and time out was completed. The patient was placed in the prone position on the procedure table. The lumber area was prepped and draped in the usual sterile fashion. . Vital signs were closely monitored during the procedure .IV sedation was used during the procedure to decrease patients anxiety. Using AP and then oblique fluoroscopy, the ``eye of the Steve dog corresponding to the connection between the superior and transverse articular processes of right L3, L4, and L5 were identified, marked, and localized with 1% lidocaine. Subsequently, a 18 -ix radiofrequency cannula with a 10- mm active tip was advanced guided by fluoroscopy to each of the``eyes of the Steve dog at right L3, L4, and L5. Each site then underwent sensory testing at 50 Hz and 0 to 1 volt and motor testing at 2.5 Hz and 0 to 3 volt with local stimulation, but no radicular symptoms down the legs. Thereafter each sites underwent radiofrequency thermocoagulation at 80 degrees celsius for 90 seconds after injecting 0.5 ml of PF Ropivacaine 1ml, then after the thermocoagulation done , 1 ml of the block solution containing Depo-Medrol 20 mg and 3 ml of Ropivacaine 0.5% was injected at the right L3 , L4 , and L5 , levels after negative aspiration of CSF and blood and with no paresthesias. Cannulas were retracted while injecting lidocaine 1% until the needle is out. The same procedure was repeated at the level of Left L3, L4, and L5 levels. At the end of the procedure, the skin was cleansed and bandages were applied. COMPLICATIONS: No acute complications. DISPOSITION / PLANS: The patient was placed in a supine position and transferred to the recovery area in a stable condition for observation and was discharged from the recovery room after meeting discharge criteria. Home discharge instructions given to the patient by the staff. The patient was reexamined prior to discharge. The patient will schedule a follow up in the in in 2-4 weeks.
[2023-12-03] MEDS: IV FLUID CONTINUATION 1,000 ML IV ONE (10:48)
--- NOTE | 2023-12-03 11:01 | FL ---
Fluoroscopy INDICATION: Pain FINDINGS: Fluoroscopy time: 27 seconds. Total dose area product (DAP) in uGy*m?, mGy*cm? (or similar): 0.77036 Images obtained: 7. IMPRESSION: 1. Documentation of fluoroscopy.
[2023-12-03 11:33] VITALS: BP 115/63; PULSE 57; RESP 18
== END 2023-12-03 11:22 | disposition home or self-care (01) ==
LOC: ORPAIN 08:32
PROVIDERS: ATTEND Specialist
DX: M51.36 Other intervertebral disc degeneration, lumbar region (principal); M47.816 Spondylosis without myelopathy or radiculopathy, lumbar region; I10 Essential (primary) hypertension; E78.5 Hyperlipidemia, unspecified; J45.909 Unspecified asthma, uncomplicated; F17.200 Nicotine dependence, unspecified, uncomplicated; E11.9 Type 2 diabetes mellitus without complications; F32.A Depression, unspecified; K21.9 Gastro-esophageal reflux disease without esophagitis; Z79.51 Long term (current) use of inhaled steroids; Z79.84 Long term (current) use of oral hypoglycemic drugs; Z79.899 Other long term (current) drug therapy; Z98.890 Other specified postprocedural states
CPT/HCPCS: 64635; 64636 ×2; 99152; 99153; J2250; J3010; J2795; J1010

== ENCOUNTER → 2024-01-19 | Outpatient (CLI) | payer OTHER ==
[2024-01-19 09:51] VITALS: BP 133/88; PULSE 60; RESP 16; TEMP 97.7
--- NOTE | 2024-01-19 10:05 | XR ---
EXAMINATION TYPE: XR knee limited 2 views RT DATE OF EXAM: 01/19/2024 Comparison: None Clinical History: 48-year-old female M17.9 R knee pain Findings: No significant joint effusion. Some enthesopathy at the upper pole of the patella. Minimal early dege nerative spurring patellofemoral compartment. Bicompartmental joint space appears maintained. No acut e fracture, subluxation, dislocation. Impression: No acute osseous abnormality seen on the 2 views. No significant joint effusion. There may be mild ea rly degenerative changes in the patellofemoral compartment.
--- NOTE | 2024-01-19 13:19 | P.PAINPG ---
PQRS Measure Charge Sheet Comment: A 48 yr old female with a history of severe and chronic LBP secondary to lumbar DDD and spondylosis with facet arthropathy without myelopathy presents today for medication refills. Pt underwent a BL RFA in Nov 2023 where she admits she experienced 70% pain relief s/p procedure. Pain level is provoked at 7 /10 in intensity, constant, localized in the lumbar spine, predominantly axial, throbbing in character w occasional shooting pain down the BLEs. Pain is provoked by standing/ walking for periods of 15 min or more. Pain is alleviated with PT x 6 wks in 2020 which was ineffective, massage therapy weekly x 6 wks in 2021, physician guided home stretching regimen, injections, medications, topicals, laying supine and rest. Pt cares for her grandchildren and occasionally takes medications three times daily due to over activity. Oswestry axial pain score of 23. She also feels 6/ 10 R knee pain, achy in character, no radiation of pain. Pain is localized in the medial aspect w minimal joint line TTP. Admits R knee "gives way" when climbing stairs. Denies popping or clicking. Interventional pain procedures completed include BL RFA L3-L5 (Jan 2023, Nov 2023) Patient is currently on [place] 7.5/325mg , Baclofen, BioFreeze gel Patient denies any side effects of the medication(s), denies excessive berry wsiness or sleepiness, denies suicidal ideation and reports that the current pain medication is helping to control the pain and improve activities of daily living. Patient denies any motor or sensory deficits. Patient denies any fever or night sweats, denies any change in the bowel movements or urination. Physical Examination: -Constitutional: Cooperative. Not in acute distress . - Neurologic: Cranial nerve II to XII intact. No focal neurological deficits. - Psychatric: Alert & oriented x 3. Matching mood & appropriate affect. Judgment and insight intact. - Musculoskeletal: Cervical spine: Muscle bulk/ tone/ strength in the bilateral upper extremities normal Vertebral body tenderness to palpation over Spurling test positive Distraction test positive Facet loading test positive TTP Thoracic spine Muscle bulk / tone/ strength in the bilateral paraspinal muscles normal Vertebral body tender to palpation over Facet loading test positive TTP Lumbar spine: +R knee medial joint line TTP Motor bulk/ tone/ strength lower extremities , thigh and legs : 5/5 Deep tendon reflexes : Normal Knee Jerk. Normal Ankle Jerk . Vertebral body tenderness to palpation Lumbar Facet Loading Test positive BL L4-L5, L5-S1 Straight Leg Raise: positive at 30 degrees right side/ left side Gaenslen's Test positive Sacral spine : Severe tenderness over the Sacroiliac joint: right side / left side Range of motion: Flexion of the lumbar spine <60 degrees Range of motion: Extension of the lumbar spine <20 degrees Gaenslen's Test positive right side / left side Silke test: positive right side / left side Thigh Thrust Test positive right side / left side Sacral Thrust Test positive right side / left side Assessment and plan: Chronic LBP secondary to lumbar DDD, spondylosis with facet arthropathy without myelopathy, R knee DJD Recommendation of R knee x ray M17.9 Chronic and current use of high-risk medication (Opioids). The patient was counseled about risk of opioid use, psychological risk associated with opioids and was orally counseled to not overuse , divert or sell medications. Pt is to store medication in a safe location. The patient is counseled against driving while using narcotic medications and also not to use alcohol or any illicit recreational drugs. Patient verbalized understanding that the lack of compliance will result in failure to renew narcotic prescription(s) as well as possible discharge from the clinic Diagnoses, prognosis and treatment options including but not limited to physical therapy, surgical interventions, interventional therapies and medication management including narcotics and adjuvant medication were discussed. All patient questions answered MAPS reviewed and it was appropriate. UDS from 06/02/23 reviewed and consistent. Prescription refill for [place] 7.5/325mg #90 , Baclofen , Mobic w 1 RF I have spent less than 30 minutes on patient care today. Dr Alaniz was available by phone for the evaluation of this patient. The time was used to review the medical records including relevant urine studies and Prescription history (MAPs), review of the available imaging, evaluation and examination of the patient, coordination of care with the medical staff and if applicable referring physicians, as well as creation of the medical record PQRS Narrative: Smoking Status Current every day smoker Narcotic Agreement Date Signed 04/07/23 Hx Alcohol Use (MH) No Home Medications: Ambulatory Orders Loratadine [Claritin] 10 mg PO DAILY PRN 11/03/16 Montelukast Sodium [Singulair] 10 mg PO HS 11/03/16 Propranolol [Inderal] 60 mg PO BID 11/03/16 lisinopriL [Zestril] 20 mg PO HS 10/24/19 Escitalopram [Lexapro] 10 mg PO DAILY 04/16/20 Baclofen [Lioresal] 5 mg PO TID PRN 30 Days #90 tablet 11/17/23 HYDROcodone/APAP 7.5-325MG [[place] 7.5-325] 1 tab PO TID PRN 30 Days #90 tab 11/24/23 Meloxicam [Mobic] 7.5 mg PO DAILY 30 Days #30 tab 11/24/23 Dapagliflozin Propanediol [Farxiga] 10 mg PO DAILY 12/01/23 Controlled Substance Measures - Controlled Substance Measures Is patient prescribed a controlled substance at discharge?: Yes When asked, does pt state using other controlled substances?: No If prescribed controlled substance>3 days was MAPS reviewed?: Yes
== END ==
LOC: PNWHC3 07:38
PROVIDERS: ATTEND Specialist
DX: M51.37 Other intervertebral disc degeneration, lumbosacral region (principal); M47.817 Spondylosis without myelopathy or radiculopathy, lumbosacral region; M17.11 Unilateral primary osteoarthritis, right knee; F17.200 Nicotine dependence, unspecified, uncomplicated; Z79.891 Long term (current) use of opiate analgesic
CPT/HCPCS: 80307; 73560; G0463; 99212

== ENCOUNTER → 2024-01-23 | Outpatient (CLI) | payer OTHER ==
--- NOTE | 2024-01-23 12:52 | MR ---
EXAMINATION TYPE: MR knee RT wo con DATE OF EXAM: 01/23/2024 COMPARISON: None HISTORY: Rt knee pain TECHNIQUE: Multiplanar, multisequence imaging of the right knee is performed without IV contrast. FINDINGS: There is no bone contusion or fracture. There is no joint effusion. The articular cartilages are well preserved. The cruciate and collateral ligaments are intact. There is a small tear extending to the inferior surface of the body of the medial meniscus. The later al meniscus is intact. The quadriceps and patellar tendons are intact. The anterior fat pads are normal. IMPRESSION: Small tear in the body of the medial meniscus as described above.
== END | disposition home or self-care (01) ==
LOC: RADMRIMAIN 11:08
PROVIDERS: ATTEND Specialist
DX: S83.241A Other tear of medial meniscus, current injury, right knee, initial encounter (principal)

== ENCOUNTER → 2024-04-05 | Outpatient (CLI) | payer OTHER | LOC: PNWHC3 08:00 | PROVIDERS: ATTEND Specialist | DX: M54.51 Vertebrogenic low back pain | CPT/HCPCS: 99211 ==

== ENCOUNTER → 2024-05-31 | Outpatient (CLI) | payer OTHER ==
[2024-05-31 09:30] VITALS: BP 129/83; PULSE 60; RESP 16; TEMP 97.1
--- NOTE | 2024-05-31 13:14 | P.PAINPG ---
PQRS Measure Charge Sheet Comment: A 48 yr old female with a history of severe and chronic LBP secondary to radiculopathy, spondylosis with facet arthropathy without myelopathy presents today for medication refills. Pain level is provoked at 7-8 /10 in intensity, constant, localized in the lumbar spine, predominantly axial, throbbing in aram acter w occasional shooting pain down the BLEs. Pain is provoked by standing/ walking for periods of 15 min or more. Pain is alleviated with PT x 6 wks in 2020 (which was ineffective), massage therapy weekly x 6 wks in 2021, physician guided home stretching regimen, injections, medications, topicals, laying supine and rest. Pt cares for her grandchildren and occasionally takes medications three times daily due to over activity. She also feels 6/ 10 R knee pain, achy in character, no radiation of pain. Pain is localized in the medial aspect w minimal joint line TTP. Admits R knee "gives way" when climbing stairs. Denies popping or clicking. Interventional pain procedures completed include BL RFA L3-L5 (Jan 2023, Nov 2023) Patient is currently on [place] 7.5/325mg , Baclofen, BioFreeze gel Patient denies any side effects of the medication(s), denies excessive drowsiness or sleepiness, denies suicidal ideation and reports that the current pain medication is helping to control the pain and improve activities of daily living. Patient denies any motor or sensory deficits. Patient denies any fever or night sweats, denies any change in the bowel movements or urination. Physical Examination: -Constitutional: Cooperative. Not in acute distress . - Neurologic: Cranial nerve II to XII intact. No focal neurological deficits. - Psychatric: Alert & oriented x 3. Matching mood & appropriate affect. Judgment and insight intact. - Musculoskeletal: Cervical spine: Muscle bulk/ tone/ strength in the bilateral upper extremities normal Vertebral body tenderness to palpation over Spurling test positive Distraction test positive Facet loading test positive TTP Thoracic spine Muscle bulk / tone/ strength in the bilateral paraspinal muscles normal Vertebral body tender to palpation over Facet loading test positive TTP Lumbar spine: +R knee medial joint line TTP Motor bulk/ tone/ strength lower extremities , thigh and legs : 5/5 Deep tendon reflexes : Normal Knee Jerk. Normal Ankle Jerk . Vertebral body tenderness to palpation Lumbar Facet Loading Test positive BL L4-L5, L5-S1 Straight Leg Raise: positive at 30 degrees right side/ left side Gaenslen's Test positive Sacral spine : Severe tenderness over the Sacroiliac joint: right side / left side Range of motion: Flexion of the lumbar spine <60 degrees Range of motion: Extension of the lumbar spine <20 degrees Gaenslen's Test positive right side / left side Silke test: positive right side / left side Thigh Thrust Test positive right side / left side Sacral Thrust Test positive right side / left side Assessment and plan: Chronic LBP secondary to radiculopathy, spondylosis with facet arthropathy without myelopathy, R knee DJD Chronic and current use of high-risk medication (Opioids). The patient was counseled about risk of opioid use, psychological risk associated with opioids and was orally counseled to not overuse , divert or sell medications. Pt is to store medication in a safe location. The patient is counseled against driving while using narcotic medications and also not to use alcohol or any illicit recreational drugs. Patient verbalized understanding that the lack of compliance will result in failure to renew narcotic prescription(s) as well as possible discharge from the clinic Diagnoses, prognosis and treatment options including but not limited to physical therapy, surgical interventions, interventional therapies and medication management including narcotics and adjuvant medication were discussed. All patient questions answered . Opiate/ narcotic agreements signed 05/31/24 . MAPS reviewed and it was appropriate. UDS from 01/19/24 reviewed and consistent. Prescription refill for [place] 7.5/325mg #90 , Baclofen , Mobic w 1 RF I have spent less than 30 minutes on patient care today. Dr Alaniz was available by phone for the evaluation of this patient. The time was used to review the medical records including relevant urine studies and Prescription history (MAPs), review of the available imaging, evaluation and examination of the patient, coordination of care with the medical staff and if applicable referring physicians, as well as creation of the medical record PQRS Narrative: Smoking Status Current every day smoker Narcotic Agreement Date Signed 04/07/23 Hx Alcohol Use (MH) No Home Medications: Ambulatory Orders Loratadine [Claritin] 10 mg PO DAILY PRN 11/03/16 Montelukast Sodium [Singulair] 10 mg PO HS 11/03/16 Propranolol [Inderal] 60 mg PO BID 11/03/16 lisinopriL [Zestril] 20 mg PO HS 10/24/19 Escitalopram [Lexapro] 10 mg PO DAILY 04/16/20 Dapagliflozin Propanediol [Farxiga] 10 mg PO DAILY 12/01/23 Baclofen [Lioresal] 5 mg PO TID PRN 30 Days #90 tablet 05/31/24 HYDROcodone/APAP 7.5-325MG [[place] 7.5-325] 1 tab PO TID PRN 30 Days #90 tab 05/31/24 HYDROcodone/APAP 7.5-325MG [[place] 7.5-325] 1 tab PO TID PRN 30 Days #90 tab 05/31/24 Meloxicam [Mobic] 7.5 mg PO DAILY 30 Days #30 tab 05/31/24 Controlled Substance Measures - Controlled Substance Measures Is patient prescribed a controlled substance at discharge?: Yes When asked, does pt state using other controlled substances?: Yes If prescribed controlled substance>3 days was MAPS reviewed?: Yes
== END ==
LOC: PNWHC3 07:59
PROVIDERS: ATTEND Specialist
DX: M54.51 Vertebrogenic low back pain
CPT/HCPCS: 99211

== ENCOUNTER → 2024-08-02 | Outpatient (CLI) | payer OTHER ==
[2024-08-02 08:29] VITALS: BP 124/76; PULSE 62; RESP 16; TEMP 97.5
--- NOTE | 2024-08-02 14:39 | P.PAINPG ---
PQRS Measure Charge Sheet Comment: A 48 yr old female with a history of severe and chronic LBP secondary to radiculopathy, spondylosis with facet arthropathy without myelopathy presents today for medication refills. Pt underwent a BL RFA on 12/03/23 where she experienced 75% pain relief x 7 mo s/p procedure. Pain level is provoked at 7 /10 in intensity, constant, localized in the lumbar spine, predominantly axial, throbbing in character without shooting pain. Pain is provoked by standing/ walking for periods of 15 min or more. Pain is alleviated with PT x 6 wks in 2020 (which was ineffective), massage therapy weekly x 6 wks in 2021, physician guided home stretching regimen, injections, medications, topicals, laying supine and rest. Pt cares for her grandchildren and occasionally takes medications three times daily due to over activity. Interventional pain procedures completed include BL RFA L3-L5 (Jan 2023, Nov 2023) Patient is currently on [place] 10/325mg #90, Baclofen, BioFreeze gel Patient denies any side effects of the medication(s), denies excessive drowsiness or sleepiness, denies suicidal ideation and reports that the current pain medication is helping to control the pain and improve activities of daily living. Patient denies any motor or sensory deficits. Patient denies any fever or night sweats, denies any change in the bowel movements or urination. Physical Examination: -Constitutional: Cooperative. Not in acute distress . - Neurologic: Cranial nerve II to XII intact. No focal neurological deficits. - Psychatric: Alert & oriented x 3. Matching mood & appropriate affect. Judgment and insight intact. - Musculoskeletal: Cervical spine: Muscle bulk/ tone/ strength in the bilateral upper extremities normal Vertebral body tenderness to palpation over Spurling test positive Distraction test positive Facet loading test positive TTP Thoracic spine Muscle bulk / tone/ strength in the bilateral paraspinal muscles normal Vertebral body tender to palpation over Facet loading test positive TTP Lumbar spine: +R knee medial joint line TTP Motor bulk/ tone/ strength lower extremities , thigh and legs : 5/5 Deep tendon reflexes : Normal Knee Jerk. Normal Ankle Jerk . Vertebral body tenderness to palpation Lumbar Facet Loading Test positive BL L4-L5, L5-S1 Straight Leg Raise: positive at 30 degrees right side/ left side Gaenslen's Test positive Sacral spine : Severe tenderness over the Sacroiliac joint: right side / left side Range of motion: Flexion of the lumbar spine <60 degrees Range of motion: Extension of the lumbar spine <20 degrees Gaenslen's Test positive right side / left side Silke test: positive right side / left side Thigh Thrust Test positive right side / left side Sacral Thrust Test positive right side / left side Assessment and plan: Chronic LBP secondary to radiculopathy, spondylosis with facet arthropathy without myelopathy, R knee DJD Recommendation of lumbar x ray M54.16 . Chronic and current use of high-risk medication (Opioids). The patient was counseled about risk of opioid use, psychological risk associated with opioids and was orally counseled to not overuse , divert or sell medications. Pt is to store medication in a safe location. The patient is counseled against driving while using narcotic medications and also not to use alcohol or any illicit recreational drugs. Patient verbalized understanding that the lack of compliance will result in failure to renew narcotic prescription(s) as well as possible discharge from the clinic Diagnoses, prognosis and treatment options including but not limited to physical therapy, surgical interventions, interventional therapies and me dication management including narcotics and adjuvant medication were discussed. All patient questions answered . Opiate/ narcotic agreements signed 08/02/24 . MAPS reviewed and it was appropriate. UDS collected 08/02/24. Prescription refill for [place] 10/325mg #90 , Baclofen , Mobic w 1 RF I have spent less than 30 minutes on patient care today. Dr Alaniz was available by phone for the evaluation of this patient. The time was used to review the medical records including relevant urine studies and Prescription history (MAPs), review of the available imaging, evaluation and examination of the patient, coordination of care with the medical staff and if applicable referring physicians, as well as creation of the medical record - Pain Location Bilateral Lower Back Non-Pharmacological Interventions: Heat, Ice, Inactivity, Physical Therapy, Position/Reposition, Sitting, Standing Pharmacological Interventions: Block, Epidural, PRN Medication, Scheduled Medication, Topical Medication PQRS Narrative: Smoking Status Current every day smoker Narcotic Agreement Date Signed 05/31/24 Hx Alcohol Use (MH) No Home Medications: Ambulatory Orders Loratadine [Claritin] 10 mg PO DAILY PRN 11/03/16 Montelukast Sodium [Singulair] 10 mg PO HS 11/03/16 Propranolol [Inderal] 60 mg PO BID 11/03/16 lisinopriL [Zestril] 20 mg PO HS 10/24/19 Escitalopram [Lexapro] 10 mg PO DAILY 04/16/20 Dapagliflozin Propanediol [Farxiga] 10 mg PO DAILY 12/01/23 Baclofen [Lioresal] 5 mg PO TID PRN 30 Days #90 tablet 08/02/24 HYDROcodone/APAP 10-325MG [[place] 10-325] 1 tab PO TID PRN 3 Days #18 tab 08/02/24 HYDROcodone/APAP 10-325MG [[place] 10-325] 1 tab PO TID PRN 30 Days #90 tab 08/02/24 Meloxicam [Mobic] 7.5 mg PO DAILY 30 Days #30 tab 08/02/24 Controlled Substance Measures - Controlled Substance Measures Is patient prescribed a controlled substance at discharge?: Yes When asked, does pt state using other controlled substances?: No If prescribed controlled substance>3 days was MAPS reviewed?: Yes If Rx opioid, was Start Talking consent form obtained?: Yes Was information provided regarding opioid addiction?: Yes
== END ==
LOC: PNWHC3 07:43
PROVIDERS: ATTEND Specialist
DX: M47.27 Other spondylosis with radiculopathy, lumbosacral region (principal); M17.11 Unilateral primary osteoarthritis, right knee; Z79.891 Long term (current) use of opiate analgesic; F17.210 Nicotine dependence, cigarettes, uncomplicated
CPT/HCPCS: 99212

== ENCOUNTER → 2024-08-02 | Outpatient (CLI) | payer OTHER ==
[2024-08-03 11:58] LABS: Serum Amphetamine Negative; Serum Barbiturates Negative; Serum Benzodiazepine Negative; Serum Cocaine Negative; Serum Methadone Negative; Serum Opiates Negative; Serum Phencyclidine Negative; Serum Propoxyphene Negative; Serum THC (Cannabis) Negative
--- NOTE | 2024-08-03 15:54 | XR ---
EXAMINATION TYPE: XR lumbar spine 2 or 3V DATE OF EXAM: 08/02/2024 9:09 AM COMPARISON: None. CLINICAL INDICATION: Female, 48 years old with history of M54.16 RADICULOPATHY, LUMBAR REGION, TECHNIQUE: 3 view(s) obtained. FINDINGS: There are 5 lumbar-type vertebral bodies. Pedicles are intact. Disc heights are preserved. Vertebral body heights are preserved. IMPRESSION: 1. No acute osseous abnormality lumbar spine [facility], , 08/03/2024 3:51 PM
== END | disposition home or self-care (01) ==
LOC: RADXRMAIN 08:57
PROVIDERS: ATTEND Anesthesiology
DX: Z02.83 Encounter for blood-alcohol and blood-drug test (principal); M54.16 Radiculopathy, lumbar region
CPT/HCPCS: 72100; 80307

== ENCOUNTER → 2024-08-29 | Outpatient (CLI) | payer OTHER ==
--- NOTE | 2024-08-29 12:38 | MR ---
EXAMINATION TYPE: MR lumbar spine wo con DATE OF EXAM: 08/29/2024 10:32 AM COMPARISON: Radiograph 08/02/2024 CLINICAL INDICATION: Female, 48 years old with history of M54.16, Low back pain into buttocks TECHNIQUE: Multiplanar, multisequence images of the lumbar spine were acquired without IV contrast. FINDINGS: There is combination of congenital spinal canal stenosis involving the mid and lower lumbar spine wit h [place] AP canal dimension of 8 mm in combination with prominent epidural fat circumferentially narr owing the thecal sac. Fairly moderate to severe overall thecal sac compression results from L4 and down. Mild multilevel degenerative disc disease with disc desiccation and disc bulging, greatest at L4-L5 a nd L5-S1. Some ligamentum flavum thickening and facet arthropathy lower lumbar spine. Conus medullaris is normal. Vertebral body heights are preserved and alignment is maintained. Their is mild right neuroforaminal narrowing at L5-S1. Otherwise, no significant neuroforaminal steno sis. No prevertebral paravertebral soft tissue abnormality seen. IMPRESSION: 1. Congenital spinal canal stenosis involving the mid and lower lumbar spine with [place] AP canal dim ension of 8 mm in combination with prominent epidural fat. These changes circumferentially narrow the thecal sac by a moderate to severe degree especially from L4 and down. 2. Mild degenerative disc disease and facet arthropathy lower lumbar spine. 3. No vertebral compression collapse or malalignment. [facility], , 08/29/2024 12:36 PM
== END | disposition home or self-care (01) ==
LOC: RADMRIMAIN 08:21
PROVIDERS: ATTEND Specialist
DX: M48.061 Spinal stenosis, lumbar region without neurogenic claudication (principal); M51.16 Intervertebral disc disorders with radiculopathy, lumbar region; M47.26 Other spondylosis with radiculopathy, lumbar region
CPT/HCPCS: 72148

== ENCOUNTER → 2024-11-22 | Outpatient (CLI) | payer OTHER ==
[2024-11-22 08:11] VITALS: BP 129/74; PULSE 65; RESP 16; TEMP 97.3
--- NOTE | 2024-11-22 15:19 | P.PAINPG ---
PQRS Measure Charge Sheet Mode of Arrival: Ambulatory Comment: A 49 yr old female with a history of severe and chronic LBP secondary to radiculopathy, spondylosis with facet arthropathy without myelopathy presents today for medication refills. Pain level is provoked at 8 /10 in intensity, constant, localized in the lumbar spine, predominantly axial, throbbing in character without shooting pain. Pain is provoked by standing/ walking for periods of 15 min or more. Pain is alleviated with PT x 6 wks in 2020 (which was ineffective), massage therapy weekly x 6 wks in 2021, physician guided home stretching regimen, injections, medications, topicals, laying supine and rest. Pt cares for her grandchildren and occasionally takes medications three times daily due to over activity. Interventional pain procedures completed include BL RFA L3-L5 (Jan 2023, Nov 2023) Patient is currently on [place] 10/325mg #90, Baclofen, BioFreeze gel Patient denies any side effects of the medication(s), denies excessive drowsiness or sleepiness, denies suicidal ideation and reports that the current pain medication is helping to control the pain and improve activities of daily living. Patient denies any motor or sensory deficits. Patient denies any fever or night sweats, denies any change in the bowel movements or urination. Physical Examination: -Constitutional: Cooperative. Not in acute distress . - Neurologic: Cranial nerve II to XII intact. No focal neurological deficits. - Psychatric: Alert & oriented x 3. Matching mood & appropriate affect. Judgment and insight intact. - Musculoskeletal: Cervical spine: Muscle bulk/ tone/ strength in the bilateral upper extremities normal Vertebral body tenderness to palpation over Spurling test positive Distraction test positive Facet loading test positive TTP Thoracic spine Muscle bulk / tone/ strength in the bilateral paraspinal muscles normal Vertebral body tender to palpation over Facet loading test positive TTP Lumbar spine: +R knee medial joint line TTP Motor bulk/ tone/ strength lower extremities , thigh and legs : 5/5 Deep tendon reflexes : Normal Knee Jerk. Normal Ankle Jerk . Vertebral body tenderness to palpation Lumbar Facet Loading Test positive BL L4-L5, L5-S1 Straight Leg Raise: positive at 30 degrees right side/ left side Gaenslen's Test positive Sacral spine : Severe tenderness over the Sacroiliac joint: right side / left side Range of motion: Flexion of the lumbar spine <60 degrees Range of motion: Extension of the lumbar spine <20 degrees Gaenslen's Test positive right side / left side Silke test: positive right side / left side Thigh Thrust Test positive right side / left side Sacral Thrust Test positive right side / left side Imaging: MRI non contrast lumbar spine from 08/29/24 reviewed Assessment and plan: Chronic LBP secondary to L4-S1 radiculopathy, spondylosis with facet arthropathy without myelopathy, R knee DJD Chronic and current use of high-risk medication (Opioids). The patient was counseled about risk of opioid use, psychological risk associated with opioids and was orally counseled to not overuse , divert or sell medications. Pt is to store medication in a safe location. The patient is counseled against driving while using narcotic medications and also not to use alcohol or any illicit recreational drugs. Patient verbalized understanding that the lack of compliance will result in failure to renew narcotic prescription(s) as well as possible discharge from the clinic Diagnoses, prognosis and treatment options including but not limited to physical therapy, surgical interventions, interventional therapies and medication management including narcotics and adjuvant medication were discussed. All patient questions answered . Opiate/ narcotic agreements signed 08/02/24 . MAPS reviewed and it was appropriate. Blood tox screen from 08/02/24 reviewed. Repeat UDS 09/27/24 reviewed and consistent. Prescription refill for [place] 10/325mg #90 , Baclofen , Mobic w 1 RF I have spent less than 30 minutes on patient care today. Dr Alaniz was available by phone for the evaluation of this patient. The time was used to review the medical records including relevant urine studies and Prescription history (MAPs), review of the available imaging, evaluation and examination of the patient, coordination of care with the medical staff and if applicable referring physicians, as well as creation of the medical record - Pain Location Bilateral Lower Back Non-Pharmacological Interventions: Heat, Inactivity, Physical Therapy, Position/Reposition, Sitting Pharmacological Interventions: Block, Epidural, PRN Medication, Scheduled Medication, Topical Medication PQRS Narrative: Smoking Status Current every day smoker Narcotic Agreement Date Signed 05/31/24 Scale Used Numeric (1 - 10) Hx Alcohol Use (MH) No Home Medications: Ambulatory Orders Loratadine [Claritin] 10 mg PO DAILY PRN 11/03/16 Montelukast Sodium [Singulair] 10 mg PO HS 11/03/16 Propranolol [Inderal] 60 mg PO BID 11/03/16 lisinopriL [Zestril] 20 mg PO HS 10/24/19 Escitalopram [Lexapro] 10 mg PO DAILY 04/16/20 Dapagliflozin Propanediol [Farxiga] 10 mg PO DAILY 12/01/23 Baclofen [Lioresal] 5 mg PO TID PRN 30 Days #90 tablet 09/27/24 HYDROcodone/APAP 10-325MG [[place] 10-325] 1 tab PO TID PRN 30 Days #90 tab 09/27/24 HYDROcodone/APAP 10-325MG [[place] 10-325] 1 tab PO TID PRN 30 Days #90 tab 09/27/24 Meloxicam [Mobic] 7.5 mg PO DAILY 30 Days #30 tab 09/27/24 Controlled Substance Measures - Controlled Substance Measures Is patient prescribed a controlled substance at discharge?: Yes When asked, does pt state using other controlled substances?: No If prescribed controlled substance>3 days was MAPS reviewed?: Yes
== END ==
LOC: PNWHC3 07:42
PROVIDERS: ATTEND Specialist
DX: M47.817 Spondylosis without myelopathy or radiculopathy, lumbosacral region (principal); F17.200 Nicotine dependence, unspecified, uncomplicated
CPT/HCPCS: 99211

== ENCOUNTER 2025-02-06 07:49 | Day surgery (SDC) | payer OTHER ==
[2025-02-06 09:01] VITALS: RESP 16; TEMP 97.2
[2025-02-06] MEDS: IV FLUID CONTINUATION 1,000 ML IV ONE ×2 (09:02→10:00)
[2025-02-06] MEDS: LIDOCAINE 1% (10MG/ML) FOR IV START INTRADERMA STA (09:02)
[2025-02-06] MEDS: LACTATED RINGERS 1,000 ML IV SCH (09:02)
[2025-02-06 09:14] LABS: Glucose,Whole Blood 198 mg/dL (70-110)
[2025-02-06] MEDS ORDERED: fentaNYL (PF) 50 MCG/ML 2 ML AMP ONE (09:20)
[2025-02-06] MEDS ORDERED: MIDAZOLAM 2 MG/2 ML VIAL ONE (09:20)
[2025-02-06] MEDS ORDERED: ROPIVACAINE 5 MG/ML 30 ML VIAL ONE (09:20)
[2025-02-06 10:17] VITALS: BP 105/65; PULSE 59
--- NOTE | 2025-02-06 10:22 | FL ---
EXAMINATION TYPE: FL guided pain mgmt statistic DATE OF EXAM: 02/06/2025 10:01 AM COMPARISON: Pre Operative Images if available both CT/MRI or plain film CLINICAL INDICATION: Female, 49 years old with history of RF LUMBAR; TECHNIQUE: FL guided pain mgmt statistic, multiple fluoroscopic images provided for procedure. DAP: 0.34521 mGym2 Gycm2 uGym2 cGycm2 or equivalent. FINDINGS: Fluoroscopic images during injection for pain management demonstrate multilevel degeneration changes throughout the spine. No evidence for fracture. No acute process identified. IMPRESSION: 1. No evidence for intraoperative complication. 2. Please see the operative/procedural note for further details. [facility], , 02/06/2025 10:20 AM
--- NOTE | 2025-02-06 10:42 | P.PCN ---
Description of Procedure: Preprocedure diagnosis. 1. Lumbar spondylosis with facet joint arthropathy without myelopathy. 2. Lumbar degenerative disc disease. Procedure diagnosis. 1. Lumbar spondylosis with facet joint arthropathy without myelopathy. Space 2. Lumbar degenerative disc disease. Procedure.Bilateral radiofrequency thermocoagulation L3, L4 and L5 medial branch, with fluoroscopic guidance (fluoroscopy images are available in the radiology department) (to Denervate the facet joint at bilateral L4- 5 and L5-S1 levels) Anesthesia. Moderate sedation with intravenous Versed 2 mg and fentanyl 100 g and local infiltration with Lidocaine. Continuous pulse OX,BP,EKG and verbal communication was maintained with patient. Time. Start 0920. Stop 0953. EBL minimal. Procedure indication. The patient with low back pain secondary to lumbar facet arthropathy who he had more than 50% relief of her pain with previous diagnostic lumbar medial branch block with local anesthetics.The patient was seen and identified in the preoperative area. Risks: Benefits, complications, including but not limited to risk of infection, bleeding, ALLERGIC reaction to the medications and no complete pain relief and alternatives were discussed with the patient, the patient admitted to proceed with the procedure and signed the consent. Procedure description/technique. Patient was taken to the OR and timeout was completed. The patient was placed in prone position on the procedure table. The lumbar area was prepped and draped in the usual sterile fashion. After injecting 5 ml of 1% Lidocaine subcutaneously,using AP and then oblique, lateral view of fluoroscopy, 18-gauge 100 mm radiofrequency cannula with a 10 mm active tip was advanced and guided by fluoroscopy at the junction of supirior articular process with RIGHT ala of the sacrum, transverse process of L4&L5. Each site then underwent positive sensory testing with 50 Hz and 0-1 V and negative motor testing at 2.5 Hz and 0-3 V with local stimulation but no radicular symptoms down the leg. Thereafter each sites underwent radiofrequency thermocoagulation at 80C for 90 seconds after injecting 1 mL of preservative- free 0.5% ropivacaine. Repeat radiofrequency ablation was done at each points after rotating the needle 180 with same setting. This same procedure was repeated twice on the LEFT side at the junction of superior articular process with ala of sacrum,transverse process of L4, L5 with the same settings after positive sensory,negative motor stimulation and inf iltration of 1.0 ml 5% Ropivacaine at each site . RF needles were taken out. At the end of the procedure the skin was cleansed and Band-Aids were applied. Disposition patient tolerated the procedure well. No complication. She was placed in supine position and transferred to the recovery area in stable condition for observation and was discharged home from recovery room after meeting discharge criteria. Discharge instructions given to the patient by the staff. The patient were examined prior to discharge the patient will schedule a follow-up in the clinic in 2-4 weeks.
== END 2025-02-06 10:31 | disposition home or self-care (01) ==
LOC: ORPAIN 07:49
PROVIDERS: ATTEND Pain Medicine Interventional Pain Medicine
DX: M47.816 Spondylosis without myelopathy or radiculopathy, lumbar region (principal); M51.369 Other intervertebral disc degeneration, lumbar region without mention of lumbar back pain or lower extremity pain
CPT/HCPCS: 81025; 64635; 64636; J2250; J3010; J2795